=== PATIENT | female | born 1935 | race Caucasian/White ===

== ENCOUNTER 2016-09-08 14:53 | Inpatient (IN) | payer MEDICARE, OTHER ==
[~2016-09-08] VITALS: Ht 144.8 cm; Wt 76.5 kg
[2016-09-08] MEDS ORDERED: SOD CHLORIDE 0.9% 500 ML IV STA ×2 (15:41→16:30)
--- NOTE | 2016-09-08 15:46 | ERA ---
ER Documentation Chief Complaint Date/Time DATE: 09/08/16 TIME: 15:46 Chief Complaint HPI 81-year-old female with history of diabetes, hypertension, hyperlipidemia and arthritis presents the ED via rescue ambulance for evaluation of generalized weakness and hypotension. She has been having episodes of generalized weakness with low blood pressure over the last several weeks. She was in her usual state of health until this afternoon when she developed acute onset of generalized weakness. She checked her blood pressure and found it was low and 911 was activated. When paramedics arrived they found her pale and hypotensive with systolic blood pressure in the 80s. EKG revealed sinus rhythm without ischemic changes. An IV saline lock was established and after 250 cc of normal saline she improved and was transported to the ED. Complains of mild, generalized, gradual onset headache but no visual changes, focal weakness or numbness. Denies chest pain or palpitations. No abdominal pain, nausea, vomiting, diarrhea or constipation. Chronic pain and swelling of the lower extremities which are mildly worse recently. No URI symptoms or cough. No fevers or chills. ROS All systems reviewed and are negative except as per history of present illness. Medications Home Meds Reported Medications Baclofen* (Baclofen*) 10 Mg Tablet, 10 MG PO DAILY, TAB 09/08/16 Olmesartan Medoxomil (Benicar) 40 Mg Tablet, 12.5-40 MG PO DAILY, #30 TAB 09/08/16 Meclizine Hcl* (Meclizine Hcl*) 25 Mg Tablet, 25 MG PO DAILY Y for DIZZINESS, TAB 09/08/16 Metformin Hcl* (Metformin Hcl*) 500 Mg Tablet, 500 MG PO WITH BREAKFAST, #30 TAB 09/08/16 Allergies Allergies: Coded Allergies: aspirin (Verified Allergy, Unknown, 09/08/16) PMhx/Soc Reviewed in chart. As per HPI. Lives with family. History of Surgery: Yes Hx Neurological Disorder: Yes (Vertigo) Hx Respiratory Disorders: No Hx Cardiac Disorders: Yes (Hypertension) Hx Psychiatric Problems: Yes (Anxiety) Hx Miscellaneous Medical Probl: Yes (Diabetes mellitus type 2, hyperlipidemia) Hx Alcohol Use: No Hx Substance Use: No Hx Tobacco Use: No FmHx No stroke or cancer Physical Exam Vitals Vital Signs Date Time Temp Pulse Resp B/P Pulse Ox O2 Delivery O2 Flow Rate FiO2 09/08/16 17:54 55 15 102/56 100 Room Air 09/08/16 16:38 56 20 95/58 100 Room Air 09/08/16 16:13 98.6 50 18 97/48 99 Physical Exam Const: Alert, anxious, moderate distress. Head: Atraumatic Eyes: Normal Conjunctiva ENT: Normal External Ears, Nose and Mouth. Neck: Full range of motion. No JVD. Nontender. Resp: Clear to auscultation bilaterally Cardio: Bradycardic. Regular rate and rhythm, no murmurs Abd: Soft, non tender, non distended. Normal bowel sounds Skin: No petechiae or rashes Back: No midline or flank tenderness Ext: No cyanosis. 1-2+ lower extremity edema. Neur: Awake and alert. Cranial nerves II through XII are grossly intact. Motor and sensory equal bilaterally. No pronator drift. Psych: Normal Mood and Affect Result Diagram: 09/08/16 1535 09/08/16 1535 Results 24 hrs Laboratory Tests Test 09/08/16 15:30 09/08/16 15:35 09/08/16 18:47 09/08/16 18:50 Free Thyroxine 1.25ng/dl Free Triiodothyronine (T3) pg/mL 3.90pg/ml White Blood Count 7.210^3/ul Red Blood Count 3.5310^6/ul Hemoglobin 10.3g/dl Hematocrit 33.1% Mean Corpuscular Volume 93.8fl Mean Corpuscular Hemoglobin 29.2pg Mean Corpuscular Hemoglobin Concent 31.1g/dl Red Cell Distribution Width 15.9% Platelet Count 79671^3/UL Mean Platelet Volume 10.5fl Neutrophils % 54.4% Lymphocytes % 35.6% Monocytes % 7.1% Eosinophils % 1.1% Basophils % 0.6% Nucleated Red Blood Cells % 0.0/100WBC Neutrophils # 3.910^3/ul Lymphocytes # 2.610^3/ul Monocytes # 0.510^3/ul Eosinophils # 0.110^3/ul Basophils # 0.010^3/ul Nucleated Red Blood Cells # 0.010^3/ul Prothrombin Time 13.6Sec Prothrombin Time Ratio 1.1 INR International Normalized Ratio 1.04 Activated Partial Thromboplast Time 26.9Sec Sodium Level 140mmol/L Potassium Level 4.4mmol/L Chloride Level 110mmol/L Carbon Dioxide Level 22mmol/L Anion Gap 12 Blood Urea Nitrogen 35mg/dl Creatinine 1.53mg/dl Glucose Level 129mg/dl Calcium Level 9.5mg/dl Total Bilirubin 0.1mg/dl Direct Bilirubin 0.00mg/dl Indirect Bilirubin 0.1mg/dl Aspartate Amino Transf (AST/SGOT) 38IU/L Alanine Aminotransferase (ALT/SGPT) 39IU/L Alkaline Phosphatase 31IU/L Troponin I < 0.012ng/ml Total Protein 7.1g/dl Albumin 3.9g/dl Globulin 3.20g/dl Albumin/Globulin Ratio 1.21 Thyroid Stimulating Hormone (TSH) 0.147MIU/L Urine Color LT. YELLOW Urine Clarity CLEAR Urine pH 5.5 Urine Specific Hoagland 1.015 Urine Ketones NEGATIVE Urine Nitrite NEGATIVE Urine Bilirubin NEGATIVE Urine Urobilinogen 0.2 E.U./dL Urine Leukocyte Esterase NEGATIVE Urine Hemoglobin NEGATIVE Urine Glucose NEGATIVE% Urine Total Protein NEGATIVE Bedside Urine pH (LAB) 5.5 Bedside Urine Protein (LAB) Trace Bedside Urine Glucose (UA) Negative Bedside Urine Ketones (LAB) Negative Bedside Urine Blood Negative Bedside Urine Nitrite (LAB) Negative Bedside Urine Leukocyte Esterase (L Negative Current Medications Medications (Trade) Dose Ordered Sig/Lana Route PRN Reason Start Time Stop Time Status Last Admin Dose Admin Sodium Chloride 500 ml @ 500 mls/hr Q1H STAT IV 09/08/16 15:41 09/08/16 16:40 DC 09/08/16 15:46 Sodium Chloride (NS) 500 ml @ 500 mls/hr Q1H STAT IV 09/08/16 16:30 09/08/16 17:29 DC 09/08/16 16:40 Fentanyl 25 mcg 25 mcg ONCE ONCE IV 09/08/16 17:00 09/08/16 17:01 DC 09/08/16 16:55 Sodium Chloride (NS) 1,000 ml @ 100 mls/hr Q10H IV 09/08/16 19:30 09/08/16 22:06 DC Miscellaneous Information (* Miscellaneous Pharmacy Order) HYPOGLYCEMIA PROTOCOL w... ONCE ONCE XX 09/08/16 19:30 09/08/16 21:24 DC Miscellaneous Information (* Miscellaneous Pharmacy Order) Discontinue all previ... ONCE ONCE XX 09/08/16 19:30 09/08/16 21:24 DC RHYTHM STRIP INTERPRETATION: Time: 16: 39. Sinus bradycardia. Ventricular rate 52. No ectopy. Indication: Weakness and bradycardia. EKG: TIME: 15: 56. Sinus bradycardia. Ventricular rate 52. Normal SC QRS. No ectopy. T-wave inversion in lead V1 but no ST segment elevation or depression. EP Interpretation: Abnormal EKG. IMAGING: PROCEDURE: XR Chest. CLINICAL INDICATION: 81-year-old female with weakness. TECHNIQUE: Single frontal view of the chest was obtained. COMPARISON: No. FINDINGS: The soft tissues are normal. There are degenerative osteophytes in the thoracic spine. The heart has a transverse configuration due to a poor inspiration. The cardiomediastinal silhouette and hilar structures are normal. The pulmonary vasculature is normal. There is a left-sided aorta. There is a pleural-based density in the lower aspect of the right upper lobe. The costophrenic angles are normal. IMPRESSION: 1. There is a a pleural-based density in the lower periphery of the right upper lobe with additional infiltrates in the right upper lobe. The latter are most likely the result of a pneumonia. Follow-up imaging is required to ensure no pleural based mass is present. A CT scan of the chest can be considered for further evaluation if clinically indicated now to rule out a mass. 2. Spondylosis of the thoracic spine. RPTAT:AAJJ Physician Molly Date Time Electronically viewed and signed by Physician Molly on 09/08/2016 16:22 PROCEDURE: CT Chest without contrast. CLINICAL INDICATION: 81 year-old female with pleural-based density in the lower periphery of the right upper lobe representing a potential mass. TECHNIQUE: CT scan of the chest without contrast was performed on a multidetector high-resolution CT scanner. Coronal and sagittal reformatted images were obtained from the axial source images. The total exam CTDI equals 16 mGy and the total exam DLP equals 624 mGy-cm. One or more of the following dose reduction techniques were used: - Automated exposure control. - Adjustment of the mA and/or kV according to patient size. Use of iterative reconstruction technique. COMPARISON: Chest x-ray 09/08/2016. FINDINGS: The visible portions of the submandibular glands are normal. The vocal cords and trachea are unremarkable. The thyroid gland appears to be enlarged and has a lobulated contour. The thyroid gland contains several masses. There are eggshell type calcification are likely associated with a mass or masses in the inferior right lobe of the thyroid gland. Thyroid sonogram is recommended for evaluation. There are vascular calcifications in the aortic arch. The main pulmonary artery and pulmonary artery outflow tracts are normal. The heart is normal in size. No pericardial effusion is identified. There are vascular calcifications in the coronary arteries. There is a 9 mm lymph node ventral to the right mainstem bronchus. There are vascular calcifications in the descending thoracic aorta and abdominal aorta. There is a lobulated cavitary pleural-based mass in the lower periphery of the right upper lobe which could be the result of a pleural-based necrotic neoplasm or round pneumonia with cavitation. No additional pulmonary nodules are identified. There are a few peripheral ground-glass infiltrates in the lingula. There is some plate-like atelectasis in the lingula. No pleural effusion is noted. No enlarged axillary or supraclavicular lymph nodes are identified. The liver is enlarged measuring 17.6 cm AP. There is a area of increased attenuation in what appears to be the upper portion of the gallbladder which is only partially visualized on the CT scan. This could be the result of a partially visualized cholelith. There is a 2 mm nephrolith in the upper middle third of the left kidney. There is a 1.4 cm lesion in the dorsal upper third of the left kidney. A complex cyst or solid mass might present this fashion. An ultrasound or contrast enhanced CT scan could be considered for evaluation. The spleen is normal. The pancreas is normal. The stomach, small bowel loops and visible portions of the colon are unremarkable. There are degenerative changes in the thoracic and lumbar spine. IMPRESSION: 1. A thyroid sonogram is recommended to evaluate several thyroid nodules identified in the right and left lobes of the thyroid gland some which appear tab peripheral eggshell calcification. 2. Lobulated cavitary pleural-based mass in the lower periphery of the right upper lobe measuring up to 3.8 cm AP by 5.8 cm transverse by 5 cm in height. Inflammatory and neoplastic etiologies must be considered. TB, coccidiomycosis or a cavitary neoplasm such as lung cancer could present this fashion. 3. 9 mm lymph node ventral to the right mainstem bronchus. 4. Atherosclerotic vascular disease. 5. Hepatomegaly. Focal increased attenuation in what appears to be the upper portion of the gallbladder which may be the result of a cholelith. 6. 2 mm nephrolith upper middle third left kidney. 1.4 cm lesion dorsal upper third of the left kidney. Abdominal sonogram is recommended for characterization of the left renal mass. RPTAT:AAJJ Physician Molly Date Time Electronically viewed and signed by Physician Molly on 09/08/2016 18:17 Procedures/MDM DOCUMENTS REVIEWED: ED nurse, no prior records. History supplemented by discussion with the patient's PMD. MEDICAL DECISION MAKIN-year-old female with history of diabetes, hypertension, hyperlipidemia and arthritis presents the ED via rescue ambulance for evaluation of generalized weakness and hypotension. Patient with hypotension resolved with intravenous hydration but ongoing bradycardia possibly secondary to excessive beta-dalia use. No ischemic EKG changes, elevated troponin or other signs of acute coronary syndrome. No hypoglycemia. Markedly low TSH and further evaluation of thyroid function pending. Chest x- ray reveals a right-sided filtrate/mass which was further evaluated by a CAT scan as described above, revealed multiple thyroid nodules and pulmonary mass which will require further evaluation. Doubt pneumonia as is no fever or leukocytosis. Neoplastic process will need to be ruled out. Patient be admitted to telemetry for further evaluation and management. Counseled patient and family regarding diagnosis, diagnostic results and plan for admission. CALLS/CONSULTS: Time 16:00. PMD, Dr Fransico Silva. [phone] CALLS/CONSULTS: Time 18:13, Dr. Coyle, Recommends Telemetry admission. PATIENT CARE TRANSITIONED: Time: 18:13, Dr. Coyle. Critical Care Time: 35 minutes Treatments/Evaluations: Close monitoring and treatment of unstable vital signs, cardiorespiratory, and neurologic status, while maintaining tight balance of fluid, respiratory, and cardiac interventions. This time includes discussing the case with the patient and the patient's family. This time does not include all procedures stated elsewhere in this record. This time also includes reviewing old records, labs and radiological studies. This time includes examining and re-examining the patient. Additionally, this time also includes arranging care with admitting and consulting physicians. Departure Diagnosis: Primary Impression: Hypotension Qualified Code: I95.9 - Hypotension, unspecified hypotension type Additional Impressions: Bradycardia Pulmonary mass Multiple thyroid nodules Diabetes mellitus type 2 in obese Acute renal insufficiency Condition: Serious GABE NUGENT MD September 08, 2016 15:46
[2016-09-08 15:50] LABS: ADD SCAN DIFF NO
[2016-09-08 15:51] LABS: BASOPHILS % 0.6 % (0.0-2.0); EOSINOPHILS # 0.1 10^3/ul (0.0-0.5); EOSINOPHILS % 1.1 % (0.0-7.0); HEMATOCRIT 33.1 % (37.0-47.0); HEMOGLOBIN 10.3 g/dl (12.0-16.0); LYMPHOCYTES # 2.6 10^3/ul (0.8-2.9); LYMPHOCYTES % 35.6 % (15.0-51.0); MEAN CORPUSCULAR HEMOGLOBIN 29.2 pg (29.0-33.0); MEAN CORPUSCULAR HGB CONC 31.1 g/dl (32.0-37.0); MEAN CORPUSCULAR VOLUME 93.8 fl (82.0-101.0); MEAN PLATELET VOLUME 10.5 fl (7.4-10.4); MONOCYTE # 0.5 10^3/ul (0.3-0.9); MONOCYTES % 7.1 % (0.0-11.0); NEUTROPHIL # 3.9 10^3/ul (1.6-7.5); NEUTROPHILS % 54.4 % (39.0-77.0); PLATELET COUNT 202 10^3/UL (140-415); RED BLOOD COUNT 3.53 10^6/ul (4.20-5.40); RED CELL DISTRIBUTION WIDTH 15.9 % (11.5-14.5); WHITE BLOOD COUNT 7.2 10^3/ul (4.8-10.8)
[2016-09-08 15:55] LABS: INR 1.04; PARTIAL THROMBOPLASTIN TIME 26.9 Sec (25.0-35.0); PROTIME 13.6 Sec (12.2-14.2); PT RATIO 1.1
[2016-09-08 16:07] LABS: ALANINE AMINOTRANSFERASE 39 IU/L (13-69); ALBUMIN 3.9 g/dl (3.3-4.9); ALBUMIN/GLOBULIN RATIO 1.21; ALKALINE PHOSPHATASE 31 IU/L (42-121); ANION GAP 12 (8-16); ASPARTATE AMINO TRANSFERASE 38 IU/L (15-46); BILIRUBIN,INDIRECT 0.1 mg/dl (0-1.1); BILIRUBIN,TOTAL 0.1 mg/dl (0.2-1.3); BLOOD UREA NITROGEN 35 mg/dl (7-20); CALCIUM 9.5 mg/dl (8.4-10.2); CARBON DIOXIDE 22 mmol/L (21-31); CHLORIDE 110 mmol/L (97-110); CREATININE 1.53 mg/dl (0.44-1.00); GLUCOSE 129 mg/dl (70-220); POTASSIUM 4.4 mmol/L (3.5-5.1); SODIUM 140 mmol/L (135-144); TOTAL PROTEIN 7.1 g/dl (6.1-8.1)
[2016-09-08 16:21] LABS: TROPONIN-I < 0.012 ng/ml (0.00-0.12)
--- NOTE | 2016-09-08 16:23 | RADRPT ---
PROCEDURE: XR Chest. CLINICAL INDICATION: 81-year-old female with weakness. TECHNIQUE: Single frontal view of the chest was obtained. COMPARISON: No. FINDINGS: The soft tissues are normal. There are degenerative osteophytes in the thoracic spine. The heart h as a transverse configuration due to a poor inspiration. The cardiomediastinal silhouette and hilar structures are normal. The pulmonary vasculature is normal. There is a left-sided aorta. There is a pleural-based density in the lower aspect of the right upper lobe. The costophrenic angles are no rmal. IMPRESSION: 1. There is a a pleural-based density in the lower periphery of the right upper lobe with additional infiltrates in the right upper lobe. The latter are most likely the result of a pneumonia. Follow -up imaging is required to ensure no pleural based mass is present. A CT scan of the chest can be c onsidered for further evaluation if clinically indicated now to rule out a mass. 2. Spondylosis of the thoracic spine. RPTAT:AAJJ Physician Molly Date Time Electronically viewed and signed by Physician Molly on 09/08/2016 16:22 RODOLFO/
[2016-09-08 16:38] LABS: THYROID STIMULATING HORMONE 0.147 MIU/L (0.465-4.680)
[2016-09-08] MEDS ORDERED: FENTAnyl 50 MCG/ML VIAL IV ONE (17:00)
--- NOTE | 2016-09-08 17:03 | RADRPT ---
PROCEDURE: US DVT. CLINICAL INDICATION: Bilateral lower extremity swelling.. TECHNIQUE: Multiple longitudinal and transverse images of the bilateral lower extremity veins were obtained with chance scale and color Doppler imaging. 2D grayscale measurements with compression, co vianca Doppler flow, and augmentation was performed. The calf veins were interrogated as well. COMPARISON: No prior studies are available for comparison. FINDINGS: The bilateral common femoral, superficial femoral and popliteal veins are normally compressible thro ughout. Color flow demonstrates normal filling of the vessel. Normal waveforms are visualized and there is normal response to augmentation. IMPRESSION: 1. No evidence of a deep vein thrombosis involving either lower extremity. RPTAT: AACC Physician Keegan Date Time Electronically viewed and signed by Physician Keegan on 09/08/2016 17:03 /
--- NOTE | 2016-09-08 18:18 | RADRPT ---
PROCEDURE: CT Chest without contrast. CLINICAL INDICATION: 81 year-old female with pleural-based density in the lower periphery of the rig ht upper lobe representing a potential mass. TECHNIQUE: CT scan of the chest without contrast was performed on a multidetector high-resolution CT scanner. Coronal and sagittal reformatted images were obtained from the axial source images. The total exam CTDI equals 16 mGy and the total exam DLP equals 624 mGy-cm. One or more of the following dose reduction techniques were used: - Automated exposure control. - Adjustment of the mA and/or kV according to patient size. Use of iterative reconstruction technique. COMPARISON: Chest x-ray 09/08/2016. FINDINGS: The visible portions of the submandibular glands are normal. The vocal cords and trachea are unrema rkable. The thyroid gland appears to be enlarged and has a lobulated contour. The thyroid gland con tains several masses. There are eggshell type calcification are likely associated with a mass or ma sses in the inferior right lobe of the thyroid gland. Thyroid sonogram is recommended for evaluatio n. There are vascular calcifications in the aortic arch. The main pulmonary artery and pulmonary arter y outflow tracts are normal. The heart is normal in size. No pericardial effusion is identified. There are vascular calcifications in the coronary arteries. There is a 9 mm lymph node ventral to the right mainstem bronchus. There are vascular calcifications in the descending thoracic aorta and abdominal aorta. There is a lobulated cavitary pleural-based mass in the lower periphery of the right upper lobe whic h could be the result of a pleural-based necrotic neoplasm or round pneumonia with cavitation. No additional pulmonary nodules are identified. There are a few peripheral ground-glass infiltrates in the lingula. There is some plate-like atelec tasis in the lingula. No pleural effusion is noted. No enlarged axillary or supraclavicular lymph nodes are identified. The liver is enlarged measuring 17.6 cm AP. There is a area of increased attenuation in what appear s to be the upper portion of the gallbladder which is only partially visualized on the CT scan. Thi s could be the result of a partially visualized cholelith. There is a 2 mm nephrolith in the upper m iddle third of the left kidney. There is a 1.4 cm lesion in the dorsal upper third of the left kidn ey. A complex cyst or solid mass might present this fashion. An ultrasound or contrast enhanced CT scan could be considered for evaluation. The spleen is normal. The pancreas is normal. The stomach, small bowel loops and visible portions of the colon are unremarkable. There are degenerative changes in the thoracic and lumbar spine. IMPRESSION: 1. A thyroid sonogram is recommended to evaluate several thyroid nodules identified in the right an d left lobes of the thyroid gland some which appear tab peripheral eggshell calcification. 2. Lobulated cavitary pleural-based mass in the lower periphery of the right upper lobe measuring u p to 3.8 cm AP by 5.8 cm transverse by 5 cm in height. Inflammatory and neoplastic etiologies must be considered. TB, coccidiomycosis or a cavitary neoplasm such as lung cancer could present this fa shion. 3. 9 mm lymph node ventral to the right mainstem bronchus. 4. Atherosclerotic vascular disease. 5. Hepatomegaly. Focal increased attenuation in what appears to be the upper portion of the gallbla dder which may be the result of a cholelith. 6. 2 mm nephrolith upper middle third left kidney. 1.4 cm lesion dorsal upper third of the left ki dney. Abdominal sonogram is recommended for characterization of the left renal mass. RPTAT:AAJJ Physician Molly Date Time Electronically viewed and signed by Physician Molly on 09/08/2016 18:17 RODOLFO/
[2016-09-08 18:49] LABS: URINE BLOOD (Dip) POC Negative (NEGATIVE)
[2016-09-08 18:55] LABS: ADD UMIC NO; URINE BILIRUBIN (Dip) NEGATIVE (NEGATIVE); URINE BLOOD (Dip) NEGATIVE (NEGATIVE); URINE COLOR LT. YELLOW (YELLOW); URINE GLUCOSE (Dip) NEGATIVE (NEGATIVE); URINE KETONES (Dip) NEGATIVE (NEGATIVE); URINE LEUKOCYTE ESTERASE (Dip) NEGATIVE (NEGATIVE); URINE NITRITE (Dip) NEGATIVE (NEGATIVE); URINE TOTAL PROTEIN (Dip) NEGATIVE (NEGATIVE); URINE UROBILINOGEN (Dip) 0.2 E.U./dL (0.1-1.0)
[2016-09-08] MEDS ORDERED: SOD CHLORIDE 0.9% 1,000 ML IV SCH (19:30)
--- NOTE | 2016-09-08 20:04 | RADRPT ---
PROCEDURE: CT Brain without contrast. CLINICAL INDICATION: Possible malignancy. TECHNIQUE: A CT of the brain was performed utilizing axial sections from the skull base through th e vertex without contrast. Multiplanar re-formations were generated. Images were reviewed on a high- resolution PACS workstation. CTDIvol: 43.27 mGy. DLP: 720.23 mGy-cm. One or more of the following dose reduction techniques were used: - Automated exposure control. - Adjustment of the mA and/or kV according to patient size. - Use of iterative reconstruction technique. COMPARISON: None available FINDINGS: There is moderate to severe generalized volume loss. No hydrocephalus is seen. There is no mass eff ect. No acute intracranial hemorrhage is identified. There is no extra-axial collection. No CT evid ence of acute infarction is identified. There is patchy low attenuation in the supratentorial white matter, a nonspecific finding which most likely represents the sequela of mild chronic microvascula r ischemic disease. There are minimal atherosclerotic arterial calcifications. There is no significant mucosal disease in the paranasal sinuses. The visualized mastoid air cells a re clear. The ossesous structures are unremarkable. The extracranial soft tissues are unremarkable. IMPRESSION: 1. No acute intracranial pathology. 2. Moderate to severe generalized volume loss. 3. Mild chronic microvascular ischemic changes. 4. Atherosclerotic arterial calcifications. RPTAT: HTAR .Alcides Boone MD, Date Time Electronically viewed and signed by .Alcides Boone MD, MD on 09/08/2016 20:04 .R/
--- NOTE | 2016-09-08 20:25 | RADRPT ---
PROCEDURE: CT Abdomen and Pelvis without contrast. CLINICAL INDICATION: Renal mass. TECHNIQUE: Multiple contiguous axial CT images of the abdomen and pelvis were obtained without the administration of intravenous contrast. Coronal and sagittal reconstructions were also performed. CTDIvol (mGy): 18.75; Total Exam DLP (mGy-cm): 1080.23. One or more of the following dose reduction techniques were utilized: - Automated exposure control. - Adjustment of the mA and/or kV according to patient size. - Use of iterative reconstruction technique. COMPARISON: CT chest 09/08/2016. FINDINGS: Limited imaging of the lower thorax is unremarkable. The liver and spleen are homogeneous in density. The liver measures approximately 22.0 cm in a cran iocaudal dimension. Cholelithiasis is present. The pancreas and adrenal glands are unremarkable. The kidneys are symmetric in size. There is a faint punctate density within the interpolar region of the left kidney which may reflect a tiny nonobstructing stone. There is suggestion of a small low density structure of the posterior aspect of the upper pole of the left kidney which has favorable f or a small cyst. The presence of a solid renal mass cannot be ruled out given there is no intraveno us contrast. There is no hydronephrosis or abnormal perinephric inflammation. There are no uretera l stones. Bilateral symmetric perinephric fat stranding is observed. The abdominal aorta is normal in caliber. Atherosclerotic calcification is present. There is no per iaortic / retroperitoneal lymphadenopathy. The stomach and small and large intestines are unremarkable. The appendix is not visualized. There are no focal inflammatory changes of the mesentery. There is no mesenteric lymphadenopathy. There is no ascites. The bladder, uterus and adnexa are unremarkable. There is no free pelvic fluid. There is no pelvic sidewall or inguinal lymphadenopathy. There is a tiny fat containing left inguinal hernia. Degenerative changes of the spine are present. Body wall soft tissues are unremarkable. IMPRESSION: No evidence of abdominopelvic mass, lymphadenopathy or acute inflammatory pathology. There is a sma ll low density structure within the posterior aspect of the upper pole of the left kidney which may reflect a small cyst. Confirmation can be obtained with dedicated renal ultrasound. If there is con cern for a solid renal mass, follow-up cross-sectional imaging with and without intravenous contrast would be required. Hepatomegaly. Cholelithiasis. RPTAT: HLST .Jesi Esquivel MD, MD Date Time Electronically viewed and signed by .Jesi Esquievl MD, MD on 09/08/2016 20:25 .T/
[2016-09-08 20:30] VITALS: Ht 144.8 cm; Wt 76.5 kg
[2016-09-08 20:44] VITALS: BP 136/65; RESP 18
--- NOTE | 2016-09-08 20:48 | HP ---
DATE OF ADMISSION: 09/08/2016 PRESENTING COMPLAINT: Lethargy as well as low blood pressure. HISTORY OF PRESENTING COMPLAINT: This is a pleasant 81-year-old female with a past medical history of high blood pressure, diabetes, dyslipidemia amongst other problems who was brought in today by he r family because of an episode of feeling weak and low blood pressure. The family reports that over the last 3 to 4 days, the patient has just had episodes where she just does not feel well. She rep orts feeling weak all over, somewhat like near syncopal episode, and every time they check her blood pressure during these episodes, it is always found to be quite low. Today, she was also noted to tamie kirk bradycardic as well. The patient is on a beta dalia but has been taking this medication for man y years. The only new medication she was started on was Januvia for her diabetes, prior to which lindsey kirk was on metformin for many years as well. She just started taking the Januvia 2 days ago. However , on this last episode, when they checked her blood sugar, it was 151, which was not low for her. O ther than that, there has been no fever. She has had episodes of fatigue, but these were not consis tent. There is no loss of appetite, no visual changes. There has been no chest pain, shortness of breath, coughing or sputum. There have been no palpitations. There has been no nausea, vomiting, d iarrhea, blood in her stool. She does have episodes of constipation. There has been no dysuria or hematuria, no flank pain. She has chronic bilateral lower extremity edema, but this is not new. Lindsey kirk also has chronic bone and joint pains intermittently. This has not changed. She has denied dizzi ness. They have not noticed any seizing. These episodes are not associated with loss of bowel or b ladder control. They haven't noted any polydipsia or polyuria. There has been no new skin rash. REVIEW OF SYSTEMS: A 12-point review of systems was done, and pertinent findings are noted in HPI. PAST MEDICAL HISTORY: Positive for the followin. High blood pressure. 2. Diabetes. 3. Dyslipidemia. 4. Gout. SURGICAL HISTORY: Positive for: 1. Appendectomy. 2. Tonsillectomy. 3. Skin cancer, status post removal and a short course of radiation therapy, after which she has be en cancer free. ALLERGIES: THE PATIENT HAS NO DRUG ALLERGIES, BUT SHE SAYS SHE DOES BREAK OUT SOMETIMES WITH ASPIRI N THERAPY. FAMILY HISTORY: Noncontributory. SOCIAL HISTORY: The patient has never smoked. Denies alcohol or illicit drug use. PHYSICAL EXAMINATION: VITAL SIGNS: Temperature 98.6, pulse rate has ranged between 50 and 56, respirations 15, blood pres sure 102/56. When the patient first came in, blood pressure was 97/48. Saturations 100% on room ai r. GENERAL: Obese female, quite lethargic, who is alert, oriented x3, able to answer questions but did look ill. HEENT: Head was normocephalic without evidence of trauma. Pupils equal and reactive. No scleral j aundice. No conjunctival pallor. Mucous membranes are slightly dry. Posterior pharynx is clear of erythema and exudate. NECK: Supple without lymphadenopathy, but she did have some ____ on the base of the neck on the rig ht. She might have some thyromegaly; it was difficult to assess. CHEST: Clear to auscultation with good air entry on both sides. CARDIOVASCULAR: S1 and S2 ____ sounds or murmurs. Mild bradycardia. ABDOMEN: Obese, soft, nontender, nondistended with normoactive bowel sounds. No surgical scars. LOWER EXTREMITIES: The patient has nonpitting bilateral edema about 2+. The patient is edematous a ll the way from her feet to just below her knees. Again, per family, this is chronic. NEUROLOGIC: She had no focal deficits other than just lethargy. SKIN: Devoid of rash or jaundice. PSYCHIATRIC: She was anxious. LABORATORY VALUES: WBC count was normal, but hemoglobin was low at 10.3, and her MCHC was also low, consistent with hypochromia. Platelets were normal. On chemistry, her TSH was quite low at 0.147, but her free T3 was normal. Also her BUN was 35, and creatinine was elevated at 1.5. The rest of her LFTs and BMP were normal. Her urinalysis was negative for UTI. She did have trace proteinuria. Coagulation profile was unremarkable. IMAGING: She had following imaging studies: 1. A chest x-ray showed a pleural-based density in the lower periphery of the right upper lobe with additional infiltrates in the right upper lobe. This is thought to be secondary to a pneumonia, bu t they recommended CT of the chest to rule out a mass. 2. She underwent a CT of the chest without IV contrast, and this showed the following: A lobulated cavitary pleural-based mass in the lower periphery of the right upper lobe measuring up to 3.8 x 5. 8 for which inflammatory and neoplastic etiologies must considered. TB, coccidioidomycosis or a cav itary neoplasm such as lung cancer could present in this fashion. There is also a 9 mm lymph node i n the right mainstem bronchus. Hepatomegaly and possible gallbladder stones as well as a 2 mm kidne y stone and a probable left renal mass in the dorsal upper third of the left kidney. The patient wa s also found to have several thyroid nodules for which they recommended thyroid ultrasound to kathya doll. 3. Bilateral extremity Dopplers do not show any DVT in any extremities. EKG was reviewed by myself and is normal sinus rhythm without evidence of ST elevations or depressio ns with a rate of 52 consistent with sinus bradycardia. ASSESSMENT: An 81-year-old ____ female who presents today with lethargy and a near-syncopal episode , admitted and managed for the followin. Near syncope with associated hypotension and bradycardia. 2. Rule out acute coronary syndrome. 3. Right-sided pleural-based lung mass, multiple thyroid masses, possible renal mass in the setting of a history of skin cancer in the past, status post radiation, concerning for metastatic disease v ersus infection with incidental findings. 4. High blood pressure, good control. 5. Dyslipidemia, stable. 6. Diabetes type 2 with fairly good control. 7. Acute renal failure, rule out chronic kidney disease. 8. ASPIRIN ALLERGY. 9. Low TSH, rule out hyperthyroidism. PLAN: This patient is going to require an extensive workup, and she is being admitted for that. Sh e is going to be admitted to telemetry floor. One of the first things we'll do is rule out an acute coronary syndrome and obtain a CAT scan of her brain as well as her abdomen and pelvis to further e valuate findings noted on CT of the chest. She also is going to require a renal ultrasound as well as a thyroid ultrasound. She will need a full thyroid profile, and she will probably benefit from b oth pulmonary as well as hematology/oncology consultations. She is likely going to need a biopsy fo r her lung mass if Hematology feels that way, and further interventions will depend on the consultan ts' recommendations and their clinical findings. She will benefit from a 2D echocardiogram as well and will get orthostatic vital signs to evaluate her for orthostasis. We will conclusively rule out infection by sending cultures as well and will place her on a carb-controlled diet with sliding sca le insulin while she is in-house. Will continue the rest of her home medications, avoid any AV reji l-blocking agents for now in view of her symptomatic bradycardia. Also, the patient is ALLERGIC TO ASPIRIN so will hold off on that as well. Again, as mentioned earlier, further interventions will d epend on clinical course. I have discussed this plan of care with the patient and her family. I berry ve answered questions. For prophylaxis, she will be on Protonix as well as Lovenox. Dictated By: NILDA SHINE MD, BA/NTS Conf#: [id number] DID#: [id number]
[2016-09-08] MEDS: INSULIN ASPART [NOVOLOG] 3 ML PEN SC SCH (21:00)
[2016-09-08] MEDS ORDERED: ACETAMINOPHEN 325 MG TAB PO PRN (21:00)
[2016-09-08] MEDS: morphine 2 MG INJ IV PRN (21:21)
[2016-09-08] MEDS ORDERED: GLUCOSE GEL 15 GRAM TUBE PO PRN ×2 (21:30)
[2016-09-08] MEDS ORDERED: GLUCAGON 1 MG INJ IM PRN (21:30)
[2016-09-08] MEDS ORDERED: DEXTROSE 50% 50 ML SYRINGE IV PRN ×2 (21:30)
[2016-09-08] MEDS ORDERED: GLUCOSE GEL 15 GRAM TUBE BUCCAL PRN (21:30)
[2016-09-08] MEDS: DOCUSATE SODIUM 100 MG CAP PO SCH (21:53)
--- NOTE | 2016-09-08 22:19 | RADRPT ---
PROCEDURE: US Carotids. CLINICAL INDICATION: Near syncope. TECHNIQUE: Multiple sonographic of the carotid arteries were obtained utilizing chance scale imaging . Color and Doppler imaging was performed. The images were reviewed on a PACS workstation. COMPARISON: No prior studies are available for comparison. FINDINGS: Location:RightLeft CCA48.9 cm/sec52.3 cm/sec Prox ICA50.2 cm/sec66.1 cm/sec Mid ICA50.4 cm/sec48.7 cm/sec Dist ICA36.3 cm/sec46.0 cm/sec ECA50.9 cm/sec50.9 cm/sec ICA/CCA:1.0 1.3 Antegrade flow is seen within the vertebral arteries bilaterally. No significant plaque is seen with in the carotid system bilaterally. IMPRESSION: 1. No hemodynamically significant stenosis in the cervical carotid arteries. 2. Antegrade flow in both vertebral arteries. Note: Ultrasound velocity criteria are extrapolated from diameter data as defined by the Society of Radiologists in Ultrasound Consensus Conference Radiology 2003; 229;340-346. This study indirectly r eferences the measurement of the distal ICA diameter as the denominator for stenosis measurement. RPTAT: HTAR .Alcides Boone MD, Date Time Electronically viewed and signed by .Alcides Boone MD, on 09/08/2016 22:19 .R/
[2016-09-08] MEDS ORDERED: METF500T4 PO (22:20)
[2016-09-08] MEDS ORDERED: MECL-77 PO (22:24)
[2016-09-08] MEDS ORDERED: OLME40TA14 PO (22:25)
--- NOTE | 2016-09-08 22:25 | CONS ---
Date/Time of Note Date/Time of Note DATE: 09/08/16 TIME: 22:25 Assessment/Plan Assessment/Plan Chief Complaint/Hosp Course ASSESSMENT: An 81-year-old female who presents today with lethargy and a near- syncopal episode Right-sided pleural-based lung mass, multiple thyroid masses, possible renal mass in the setting of a history of skin cancer in the past, status post radiation, concerning for metastatic disease versus infection with incidental findings. SEVERE WT LOSS WITH DECREASED APPETITE R/O UNDERLYING NEOPLASIA CT-QUIDED BX LUNG MASS ANEMIA PROCEED WITH W-UP Near syncope with associated hypotension and bradycardia. Rule out acute coronary syndrome. High blood pressure, good control. Dyslipidemia, stable. Diabetes type 2 with fairly good control. Acute renal failure, rule out chronic kidney disease. ASPIRIN ALLERGY. Low TSH, rule out hypothyroidism. Problems: Consultation Date/Type/Reason Admit Date/Time September 08, 2016 at 19:35 Date of Consultation: September 08, 2016 Type of Consultation: hemeonc Reason for Consultation lung mass Referring Provider: NILDA SHINE Hx of Present Illness This is a pleasant 81-year-old female with a past medical history of high blood pressure, diabetes, dyslipidemia amongst other problems who was brought in today by her family because of an episode of feeling weak and low blood pressure. The family reports that over the last 3 to 4 days, the patient has just had episodes where she just does not feel well. She reports feeling weak all over, somewhat like near syncopal episode, and every time they check her blood pressure during these episodes, it is always found to be quite low. Today , she was also noted to be bradycardic as well. The patient is on a beta dalia but has been taking this medication for many years. The only new medication she was started on was Januvia for her diabetes, prior to which she was on metformin for many years as well. She just started taking the Januvia 2 days ago. However, on this last episode, when they checked her blood sugar, it was 151, which was not low for her. Other than that, there has been no fever. She has had episodes of fatigue, but these were not consistent. There is no loss of appetite, no visual changes. There has been no chest pain, shortness of breath, coughing or sputum. There have been no palpitations. There has been no nausea, vomiting, diarrhea, blood in her stool. She does have episodes of constipation. There has been no dysuria or hematuria, no flank pain. She has chronic bilateral lower extremity edema, but this is not new. She also has chronic bone and joint pains intermittently. This has not changed. She has denied dizziness. They have not noticed any seizing. These episodes are not associated with loss of bowel or bladder control. They haven't noted any polydipsia or polyuria. There has been no new skin rash. REVIEW OF SYSTEMS: A 12-point review of systems was done, and pertinent findings are noted in HPI. PAST MEDICAL HISTORY: Positive for the followin. High blood pressure. 2. Diabetes. 3. Dyslipidemia. 4. Gout. SURGICAL HISTORY: Positive for: 1. Appendectomy. 2. Tonsillectomy. 3. Skin cancer, status post removal and a short course of radiation therapy, after which she has been cancer free. ALLERGIES: THE PATIENT HAS NO DRUG ALLERGIES, BUT SHE SAYS SHE DOES BREAK OUT SOMETIMES WITH ASPIRIN THERAPY. FAMILY HISTORY: Noncontributory. SOCIAL HISTORY: The patient has never smoked. Denies alcohol or illicit drug use. Social History Smoking Status: Never smoker Exam/Review of Systems Vital Signs Vitals Vital Signs Date Time Temp Pulse Resp B/P Pulse Ox O2 Delivery O2 Flow Rate FiO2 09/08/16 20:44 97.4 65 18 136/65 95 09/08/16 17:54 Room Air Exam PHYSICAL EXAMINATION: GENERAL: Obese female, quite lethargic, who is alert, oriented x3, able to answer questions but did look ill. HEENT: Head was normocephalic without evidence of trauma. Pupils equal and reactive. No scleral jaundice. No conjunctival pallor. Mucous membranes are slightly dry. Posterior pharynx is clear of erythema and exudate. NECK: Supple without lymphadenopathy, but she did have some ____ on the base of the neck on the right. She might have some thyromegaly; it was difficult to assess. CHEST: Clear to auscultation with good air entry on both sides. CARDIOVASCULAR: S1 and S2 ____ sounds or murmurs. Mild bradycardia. ABDOMEN: Obese, soft, nontender, nondistended with normoactive bowel sounds. No surgical scars. LOWER EXTREMITIES: The patient has nonpitting bilateral edema about 2+. The patient is edematous all the way from her feet to just below her knees. Again, per family, this is chronic. NEUROLOGIC: She had no focal deficits other than just lethargy. SKIN: Devoid of rash or jaundice. PSYCHIATRIC: She was anxious. no path ln-pari Results Result Diagram: 09/08/16 1535 09/08/16 1535 Results 24 hrs Laboratory Tests Test 09/08/16 15:30 09/08/16 15:35 09/08/16 18:47 09/08/16 18:50 Free Thyroxine 1.25 Free Triiodothyronine (T3) pg/mL 3.90 White Blood Count 7.2 Red Blood Count 3.53 L Hemoglobin 10.3 L Hematocrit 33.1 L Mean Corpuscular Volume 93.8 Mean Corpuscular Hemoglobin 29.2 Mean Corpuscular Hemoglobin Concent 31.1 L Red Cell Distribution Width 15.9 H Platelet Count 202 Mean Platelet Volume 10.5 H Neutrophils % 54.4 Lymphocytes % 35.6 Monocytes % 7.1 Eosinophils % 1.1 Basophils % 0.6 Nucleated Red Blood Cells % 0.0 Neutrophils # 3.9 Lymphocytes # 2.6 Monocytes # 0.5 Eosinophils # 0.1 Basophils # 0.0 Nucleated Red Blood Cells # 0.0 Prothrombin Time 13.6 Prothrombin Time Ratio 1.1 INR International Normalized Ratio 1.04 Activated Partial Thromboplast Time 26.9 Sodium Level 140 Potassium Level 4.4 Chloride Level 110 Carbon Dioxide Level 22 Anion Gap 12 Blood Urea Nitrogen 35 H Creatinine 1.53 H Glucose Level 129 Calcium Level 9.5 Total Bilirubin 0.1 L Direct Bilirubin 0.00 Indirect Bilirubin 0.1 Aspartate Amino Transf (AST/SGOT) 38 Alanine Aminotransferase (ALT/SGPT) 39 Alkaline Phosphatase 31 L Troponin I < 0.012 Total Protein 7.1 Albumin 3.9 Globulin 3.20 Albumin/Globulin Ratio 1.21 Thyroid Stimulating Hormone (TSH) 0.147 L Urine Color LT. YELLOW Urine Clarity CLEAR Urine pH 5.5 Urine Specific Jackson 1.015 Urine Ketones NEGATIVE Urine Nitrite NEGATIVE Urine Bilirubin NEGATIVE Urine Urobilinogen 0.2 E.U./dL Urine Leukocyte Esterase NEGATIVE Urine Hemoglobin NEGATIVE Urine Glucose NEGATIVE Urine Total Protein NEGATIVE Bedside Urine pH (LAB) 5.5 Bedside Urine Protein (LAB) Trace H Bedside Urine Glucose (UA) Negative Bedside Urine Ketones (LAB) Negative Bedside Urine Blood Negative Bedside Urine Nitrite (LAB) Negative Bedside Urine Leukocyte Esterase (L Negative Test 09/08/16 21:52 Bedside Glucose 121 Medications Medications Current Medications Enoxaparin Sodium (Lovenox) 30 mg DAILY SC ; Start 09/09/16 at 09:00 Pantoprazole (Protonix Iv) 40 mg DAILY@06 IV ; Start 09/09/16 at 06:00 Docusate Sodium (Colace) 100 mg BID PO Last administered on 09/08/16 21:53; Admin Dose 100 MG; Start 09/08/16 at 21:00 Acetaminophen (Tylenol Tab) 650 mg Q4H PRN PO PAIN AND OR ELEVATED TEMP; Start 09/08/16 at 21:00 Morphine Sulfate (morphine) 1 mg Q4H PRN IV pain Last administered on 21:21; Admin Dose 1 MG; Start 09/08/16 at 21:00 Miscellaneous Information 1 ea NOTE XX ; Start 09/08/16 at 21:30 Glucose (Glutose) 15 gm Q15M PRN PO DECREASED GLUCOSE; Start 09/08/16 at 21:30 Glucose (Glutose) 22.5 gm Q15M PRN PO DECREASED GLUCOSE; Start 09/08/16 at 21: 30 Dextrose (D50w Syringe) 25 ml Q15M PRN IV DECREASED GLUCOSE; Start 09/08/16 at 21:30 Dextrose (D50w Syringe) 50 ml Q15M PRN IV DECREASED GLUCOSE; Start 09/08/16 at 21:30 Glucagon (Glucagen) 1 mg Q15M PRN IM DECREASED GLUCOSE; Start 09/08/16 at 21:30 Glucose (Glutose) 15 gm Q15M PRN BUCCAL DECREASED GLUCOSE; Start 09/08/16 at 21 :30 Hydralazine HCl (Apresoline) 10 mg Q6H PRN IV ELEVATED BLOOD PRESSURE; Start at 22:30 Procedures Procedures IMAGING: She had following imaging studies: 1. A chest x-ray showed a pleural-based density in the lower periphery of the right upper lobe with additional infiltrates in the right upper lobe. This is thought to be secondary to a pneumonia, but they recommended CT of the chest to rule out a mass. 2. She underwent a CT of the chest without IV contrast, and this showed the following: A lobulated cavitary pleural-based mass in the lower periphery of the right upper lobe measuring up to 3.8 x 5.8 for which inflammatory and neoplastic etiologies must considered. TB, coccidioidomycosis or a cavitary neoplasm such as lung cancer could present in this fashion. There is also a 9 mm lymph node in the right mainstem bronchus. Hepatomegaly and possible gallbladder stones as well as a 2 mm kidney stone and a probable left renal mass in the dorsal upper third of the left kidney. The patient was also found to have several thyroid nodules for which they recommended thyroid ultrasound to evaluate. 3. Bilateral extremity Dopplers do not show any DVT in any extremities. EKG - normal sinus rhythm without evidence of ST elevations or depressions with a rate of 52 consistent with sinus bradycardia. HEIDY ORTIZ MD September 08, 2016 22:25
[2016-09-08] MEDS ORDERED: BACL10TA PO (22:26)
[2016-09-08] MEDS ORDERED: FEBU80TA PO (22:34)
[2016-09-08] MEDS ORDERED: FURO20TA3 PO (22:34)
[2016-09-08] MEDS ORDERED: POTA10TA97 PO (22:34)
[2016-09-08] MEDS ORDERED: ATEN50TA PO (22:34)
[2016-09-08] MEDS ORDERED: FENO134C PO (22:34)
[2016-09-08] MEDS ORDERED: TRIA0.1212 PO (22:34)
[2016-09-08] MEDS ORDERED: HYDR10SY13 PO (22:34)
[2016-09-08] MEDS ORDERED: SIMV20TA2 PO (22:34)
[2016-09-08] MEDS: hydrALAzine 20 MG INJ IV PRN (22:39)
[2016-09-08 23:23] VITALS: PULSE 60
[2016-09-08] MEDS ORDERED: LORAZEPAM 2 MG INJ IV ONE (23:30)
[2016-09-08 23:47] LABS: CREATINE KINASE 287 IU/L (23-200)
[2016-09-08 23:59] LABS: TROPONIN-I < 0.012 ng/ml (0.00-0.12)
[2016-09-09] VITALS (13 sets, daily range): BP systolic 111–152; BP diastolic 57–80; PULSE 78–100; RESP 18–20
[2016-09-09] MEDS ORDERED: MECLIZINE 25 MG TAB PO PRN
[2016-09-09] MEDS ORDERED: ZOLPIDEM 5 MG TAB PO PRN (00:15)
[2016-09-09] MEDS: hydrOXYzine HCL 10 MG TAB PO SCH ×2 (00:30→20:51)
[2016-09-09] MEDS: HYDROCODONE/APAP (5/325) TAB PO PRN ×2 (03:44→18:31)
[2016-09-09] MEDS: PANTOPRAZOLE 40 MG INJ IV SCH (05:15)
[2016-09-09 07:31] LABS: ADD SCAN DIFF NO
[2016-09-09 07:45] LABS: BASOPHILS % 0.7 % (0.0-2.0); EOSINOPHILS # 0.1 10^3/ul (0.0-0.5); HEMATOCRIT 32.3 % (37.0-47.0); HEMOGLOBIN 10.1 g/dl (12.0-16.0); LYMPHOCYTES # 1.8 10^3/ul (0.8-2.9); LYMPHOCYTES % 29.6 % (15.0-51.0); MEAN CORPUSCULAR HEMOGLOBIN 28.9 pg (29.0-33.0); MEAN CORPUSCULAR HGB CONC 31.3 g/dl (32.0-37.0); MEAN CORPUSCULAR VOLUME 92.3 fl (82.0-101.0); MEAN PLATELET VOLUME 10.4 fl (7.4-10.4); MONOCYTE # 0.4 10^3/ul (0.3-0.9); NEUTROPHIL # 3.7 10^3/ul (1.6-7.5); NEUTROPHILS % 61.5 % (39.0-77.0); PLATELET COUNT 184 10^3/UL (140-415); RED CELL DISTRIBUTION WIDTH 15.9 % (11.5-14.5)
[2016-09-09] MEDS: INSULIN ASPART [NOVOLOG] 3 ML PEN SC SCH ×4 (07:51→20:59)
[2016-09-09 08:02] LABS: CREATINE KINASE 263 IU/L (23-200)
[2016-09-09 08:06] LABS: CALCIUM 9.1 mg/dl (8.4-10.2); CHOL/HDL RATIO 7.6 RATIO; CREATININE 1.05 mg/dl (0.44-1.00); IRON 41 ug/dl (35-150); MAGNESIUM 1.9 mg/dl (1.7-2.5); POTASSIUM 3.7 mmol/L (3.5-5.1)
[2016-09-09 08:10] LABS: CK-MB 0.96 ng/ml (0.0-2.4); TROPONIN-I < 0.012 ng/ml (0.00-0.12)
[2016-09-09 08:15] LABS: TOTAL IRON BINDING CAPACITY 378 ug/dl (241-421)
[2016-09-09 08:18] LABS: T3 UPTAKE 35.8 % (23.5-40.5)
--- NOTE | 2016-09-09 08:18 | RADRPT ---
PROCEDURE: Retroperitoneal US. CLINICAL INDICATION: Pain, possible cyst in the left kidney TECHNIQUE: Multiple sonographic images of the kidneys and retroperitoneum were obtained. The imag es were reviewed on a PACS workstation. COMPARISON: 09/08/2016 FINDINGS: The kidneys are normal in size, contour, cortical thickness and cortical echogenicity. The right kidney measures 10.4 cm. The left kidney measures 9.4 cm. There is a 5 mm echogenic focus in the left kidney, suspicious for a stone. There is a 1.1 cm simpl e cyst in the left kidney. There is no evidence for hydronephrosis. The urinary bladder is normal. RPTAT: AA IMPRESSION: Small 5 mm stone in the left kidney. Small simple cyst in the left kidney. .Thomas Casper MD, Date Time Electronically viewed and signed by .Thomas Casper MD, MD on 09/09/2016 08:17 .S/
[2016-09-09 08:32] LABS: THYROID STIMULATING HORMONE 0.987 MIU/L (0.465-4.680)
[2016-09-09] MEDS: BACLOFEN 10 MG TAB PO SCH (09:10)
[2016-09-09] MEDS: POTASSIUM CHLORIDE (SR) 10 MEQ TAB PO SCH (09:10)
[2016-09-09] MEDS: DOCUSATE SODIUM 100 MG CAP PO SCH ×2 (09:10→20:51)
[2016-09-09] MEDS: ENOXAPARIN 30 MG/0.3 ML SYG SC SCH (09:15)
--- NOTE | 2016-09-09 10:51 | RADRPT ---
PROCEDURE: XR Knee. CLINICAL INDICATION: Right knee pain TECHNIQUE: 2 images of the right knee are available for review. COMPARISON: None available FINDINGS: There is an acute minimally angulated proximal fibular shaft fracture about 5 cm from the fibular st yloid. No additional fracture is noted. The bones are osteopenic. Alignment is normal. There is mild tricompartmental osteoarthrosis of the knee. Soft tissues are grossly unremarkable. IMPRESSION: 1. Acute minimally angulated proximal fibular shaft fracture. 2. Background osteopenia. RPTAT: UU .Rai Pizano MD, Date Time Electronically viewed and signed by .Rai Pizano MD, on 09/09/2016 10:51 .K/
--- NOTE | 2016-09-09 10:52 | RADRPT ---
PROCEDURE: XR Tibia and Fibula. CLINICAL INDICATION: Right lower extremity pain TECHNIQUE: 3 views of the right tibia and fibula were obtained. COMPARISON: No prior studies are available for comparison. FINDINGS: There is an acute minimally angulated proximal fibular shaft fracture about 5 cm from the fibular st yloid. No additional fracture is noted. The bones are osteopenic. Alignment is normal. There is mild tricompartmental osteoarthrosis of the knee. There is calcaneal enthesopathy. Soft tissues are grossly unremarkable. IMPRESSION: 1. Acute minimally angulated proximal fibular shaft fracture. 2. Background osteopenia. RPTAT: UU .Rai Pizano MD, MD Date Time Electronically viewed and signed by .Rai Pizano MD, on 09/09/2016 10:52 .K/
--- NOTE | 2016-09-09 11:28 | CONS ---
Date/Time of Note Date/Time of Note DATE: 09/09/16 TIME: 11:15 Assessment/Plan Assessment/Plan Chief Complaint/Hosp Course Syncope: secondary to SBP 70s likely worsened by standing up. Sinus bradycardia in the 50s should not cause syncope. Will check echo Hypotension: As low as 50s at home. Improvement in renal function with IVF suggests volume depletion but also had chills so ?infection as well Bradycardia: Sinus bradycardia, no heart block. On atenolol which is not ideal at her age and with renal issues RUL lung mass: being evaluated Thyroid nodules: being evaluated DM HTN HL -hold atenolol -hold lasix -can restart benicar if BP is elevated -echo -workup of lung/thyroid masses Problems: Consultation Date/Type/Reason Admit Date/Time September 08, 2016 at 19:35 Date of Consultation: September 09, 2016 Type of Consultation: Cardiology Reason for Consultation Syncope, bradycardia Referring Provider: NILDA SHINE of Present Illness 81 yo F with a h/o DM, HTN, HL, who presented due to syncope and was found to have hypotension, bradycardia, acute renal failure, and incidentally found to have lung and thyroid masses. The pt notes that 3 days ago she was not feeling well and checked her BP, it was 50/30. She felt like she would pass out but did not. Her family gave her some home remedies and her BP recovered. The following day she felt ok. Yesterday she felt similar and was having chills but no fevers. Her BP was 70/40. She got up to make herself some coffee to help with her BP and felt dizzy. The next thing she remembers is paramedics helping her. Her BP was apparently 80s in the field. Her Cr was 1.5 on admission and improved with IVF. She was incidentally found to have a RUL lung mass and thyroid nodules which are being worked up. She denies CP or SOB. She takes atenolol 50mg daily without checking her BP but otherwise checks her BP before taking her other meds. No prior syncopal episode. per HPI Past Medical History per HPI Social History Smoking Status: Never smoker Exam/Review of Systems Vital Signs Vitals Vital Signs Date Time Temp Pulse Resp B/P Pulse Ox O2 Delivery O2 Flow Rate FiO2 09/09/16 08:38 78 09/09/16 07:32 98.3 18 125/80 97 09/08/16 17:54 Room Air Intake and Output 09/08/16 09/08/16 09/09/16 15:00 23:00 07:00 Intake Total 400 ml Balance 400 ml Exam Constitutional: alert, oriented Psych: no complaints Head: atraumatic, normocephalic Neck: supple, No jvd Respiratory: clear to auscultation, No crackles/rales Cardiovascular: regular rate and rhythm, systolic murmur (3/6 mid peaking GRAYSON) , No edema Gastrointestinal: non-tender, soft Neurological: nl mental status, nl speech Results EKG: sinus paola (52), no ST changes Result Diagram: 09/09/16 0655 09/09/16 0655 Results 24 hrs Laboratory Tests Test 09/08/16 15:30 09/08/16 15:35 09/08/16 18:47 09/08/16 18:50 Free Thyroxine 1.25 Free Triiodothyronine (T3) pg/mL 3.90 White Blood Count 7.2 Red Blood Count 3.53 L Hemoglobin 10.3 L Hematocrit 33.1 L Mean Corpuscular Volume 93.8 Mean Corpuscular Hemoglobin 29.2 Mean Corpuscular Hemoglobin Concent 31.1 L Red Cell Distribution Width 15.9 H Platelet Count 202 Mean Platelet Volume 10.5 H Neutrophils % 54.4 Lymphocytes % 35.6 Monocytes % 7.1 Eosinophils % 1.1 Basophils % 0.6 Nucleated Red Blood Cells % 0.0 Neutrophils # 3.9 Lymphocytes # 2.6 Monocytes # 0.5 Eosinophils # 0.1 Basophils # 0.0 Nucleated Red Blood Cells # 0.0 Prothrombin Time 13.6 Prothrombin Time Ratio 1.1 INR International Normalized Ratio 1.04 Activated Partial Thromboplast Time 26.9 Sodium Level 140 Potassium Level 4.4 Chloride Level 110 Carbon Dioxide Level 22 Anion Gap 12 Blood Urea Nitrogen 35 H Creatinine 1.53 H Glucose Level 129 Calcium Level 9.5 Total Bilirubin 0.1 L Direct Bilirubin 0.00 Indirect Bilirubin 0.1 Aspartate Amino Transf (AST/SGOT) 38 Alanine Aminotransferase (ALT/SGPT) 39 Alkaline Phosphatase 31 L Troponin I < 0.012 Total Protein 7.1 Albumin 3.9 Globulin 3.20 Albumin/Globulin Ratio 1.21 Thyroid Stimulating Hormone (TSH) 0.147 L Urine Color LT. YELLOW Urine Clarity CLEAR Urine pH 5.5 Urine Specific [place] 1.015 Urine Ketones NEGATIVE Urine Nitrite NEGATIVE Urine Bilirubin NEGATIVE Urine Urobilinogen 0.2 E.U./dL Urine Leukocyte Esterase NEGATIVE Urine Hemoglobin NEGATIVE Urine Glucose NEGATIVE Urine Total Protein NEGATIVE Bedside Urine pH (LAB) 5.5 Bedside Urine Protein (LAB) Trace H Bedside Urine Glucose (UA) Negative Bedside Urine Ketones (LAB) Negative Bedside Urine Blood Negative Bedside Urine Nitrite (LAB) Negative Bedside Urine Leukocyte Esterase (L Negative Test 09/08/16 21:52 09/08/16 22:58 09/09/16 06:55 09/09/16 07:48 Bedside Glucose 121 119 Creatine Kinase 287 H 263 H Creatine Kinase Index 0.2 0.4 Creatinine Kinase MB (Mass) 0.60 0.96 Troponin I < 0.012 < 0.012 White Blood Count 6.0 Red Blood Count 3.50 L Hemoglobin 10.1 L Hematocrit 32.3 L Mean Corpuscular Volume 92.3 Mean Corpuscular Hemoglobin 28.9 L Mean Corpuscular Hemoglobin Concent 31.3 L Red Cell Distribution Width 15.9 H Platelet Count 184 Mean Platelet Volume 10.4 Neutrophils % 61.5 Lymphocytes % 29.6 Monocytes % 6.0 Eosinophils % 1.0 Basophils % 0.7 Nucleated Red Blood Cells % 0.0 Neutrophils # 3.7 Lymphocytes # 1.8 Monocytes # 0.4 Eosinophils # 0.1 Basophils # 0.0 Nucleated Red Blood Cells # 0.0 Sodium Level 142 Potassium Level 3.7 Chloride Level 114 H Carbon Dioxide Level 21 Anion Gap 11 Blood Urea Nitrogen 28 H Creatinine 1.05 H Glucose Level 108 Hemoglobin A1c 5.7 Calcium Level 9.1 Phosphorus Level 3.4 Magnesium Level 1.9 Iron Level 41 Total Iron Binding Capacity 378 Percent Iron Saturation 11 L Triglycerides Level 527 H Cholesterol Level 176 LDL Cholesterol, Calculated 48 HDL Cholesterol 23 L Cholesterol/HDL Ratio 7.6 Thyroid Stimulating Hormone (TSH) 0.987 Free Thyroxine Index 3.72 Thyroxine (T4) 10.4 Triiodothyronine (T3) Uptake 35.8 Medications Medications Current Medications Enoxaparin Sodium (Lovenox) 30 mg DAILY SC Last administered on 09/09/16t 09:15 ; Admin Dose 30 MG; Start 09/09/16 at 09:00 Pantoprazole (Protonix Iv) 40 mg DAILY@06 IV Last administered on 09/09/16 05: 15; Admin Dose 40 MG; Start 09/09/16 at 06:00 Docusate Sodium (Colace) 100 mg BID PO Last administered on 09/09/16 09:10; Admin Dose 100 MG; Start 09/08/16 at 21:00 Acetaminophen (Tylenol Tab) 650 mg Q4H PRN PO PAIN AND OR ELEVATED TEMP; Start 09/08/16 at 21:00 Morphine Sulfate (morphine) 1 mg Q4H PRN IV pain Last administered on 21:21; Admin Dose 1 MG; Start 09/08/16 at 21:00 Miscellaneous Information 1 ea NOTE XX ; Start 09/08/16 at 21:30 Glucose (Glutose) 15 gm Q15M PRN PO DECREASED GLUCOSE; Start 09/08/16 at 21:30 Glucose (Glutose) 22.5 gm Q15M PRN PO DECREASED GLUCOSE; Start 09/08/16 at 21: 30 Dextrose (D50w Syringe) 25 ml Q15M PRN IV DECREASED GLUCOSE; Start 09/08/16 at 21:30 Dextrose (D50w Syringe) 50 ml Q15M PRN IV DECREASED GLUCOSE; Start 09/08/16 at 21:30 Glucagon (Glucagen) 1 mg Q15M PRN IM DECREASED GLUCOSE; Start 09/08/16 at 21:30 Glucose (Glutose) 15 gm Q15M PRN BUCCAL DECREASED GLUCOSE; Start 09/08/16 at 21 :30 Hydralazine HCl (Apresoline) 10 mg Q6H PRN IV ELEVATED BLOOD PRESSURE Last administered on 09/08/16 22:39; Admin Dose 10 MG; Start 09/08/16 at 22:30 Baclofen (Lioresal) 10 mg DAILY PO Last administered on 09/09/16 09:10; Admin Dose 10 MG; Start 09/09/16 at 09:00 Meclizine HCl (Antivert) 25 mg DAILY PRN PO DIZZINESS; Start 09/09/16 at 00:00 Potassium Chloride (Klor-Con 10) 8 meq DAILY PO Last administered on 09/09/16 09:10; Admin Dose 8 MEQ; Start 09/09/16 at 09:00 Hydroxyzine HCl (Atarax) 20 mg QHS PO ; Start 09/09/16 at 00:30 Zolpidem Tartrate (Ambien) 5 mg HS PRN PO INSOMNIA; Start 09/09/16 at 00:15 Acetaminophen/ Hydrocodone Bitart ([place] (5/325)) 1 tab Q4H PRN PO pain Last administered on 09/09/16t 03:44; Admin Dose 1 TAB; Start 09/09/16 at 00:30 ERIN GUTIERREZ September 09, 2016 11:26
--- NOTE | 2016-09-09 12:13 | PN ---
Date/Time of Note Date/Time of Note DATE: 09/09/16 TIME: 12:13 Assessment/Plan VTE Prophylaxis VTE Prophylaxis Intervention: LMWH Lines/Catheters IV [facility] Urinary Cath still in place: No Assessment/Plan Assessment/Plan 81-year-old female managed for the followin. Near syncope with associated hypotension and bradycardia. * Patient has been off beta-dalia therapy with improvement in blood pressure and heart rate. * Cardiology input appreciated/recommendations noted. * Family reports that patient might have been mixing herbs with prescribed medication which could explain symptoms. Patient and family advised not to do this. 2. Right-sided pleural-based lung mass: * CT of the abdomen and pelvis and brain showed no other masses * Pulmonary and hematology oncology consultation still pending. However patient will require CT-guided biopsy. We will order this if okay with pulmonary. * Family also reports that patient has been having recurrent cough occasionally productive over the last few months. 3. Multiple thyroid masses * Initial thyroid panel screen was abnormal, but repeat is completely normal. * Endocrinology consultation has been obtained, will get thyroid ultrasound. 4. Possible renal mass on CT: * Found to be a small incidental cyst on ultrasound. No further interventions required. 5. History of skin cancer in the past, status post radiation many years ago. Patient was told she was cancer free. 6. High blood pressure: * Patient is still having good control of atenolol / follow-up cardiology recommendation 7. Dyslipidemia: * Repeat screen continues to show suboptimal control /will follow goals of therapy Per cardiology 8. Diabetes type 2 with fairly good control. 9. Acute renal failure, rule out chronic kidney disease: improving 10. ASPIRIN ALLERGY. 11. Acute minimally angulated proximal fibular shaft fracture causing right lower extremity pain * Orthopedic consultation obtained with Dr. Tapia, follow recommendations 12. Background osteopenia: Start calcium supplementation, consider biphosphonate therapy 13. Rhabdomyolysis mild: Trend levels of creatinine kinase, gentle hydration if indicated Prophylaxis with Lovenox and PPI. Subjective 24 Hr Interval Summary Free Text/Dictation Patient seen. Still quite lethargic but reports feeling much better. Still complaining of pain in her right leg. Son was at the bedside. He notes that mother has been taking some herbs with her medications of recent. We discussed clinical findings. He wants us to go ahead and order biopsy of lung mass, but once ability to change their mind if necessary. He feels mother might not be strong enough to undergo any form of aggressive intervention. Exam/Review of Systems Vital Signs Vitals Vital Signs Date Time Temp Pulse Resp B/P Pulse Ox O2 Delivery O2 Flow Rate FiO2 09/09/16 11:16 98.2 80 18 142/66 97 09/08/16 17:54 Room Air Intake and Output 09/08/16 09/08/16 09/09/16 15:00 23:00 07:00 Intake Total 400 ml Balance 400 ml Exam GENERAL: Obese female, less lethargic, who is alert, oriented x3, able to answer questions. HEENT: Head was normocephalic without evidence of trauma. Pupils equal and reactive. No scleral jaundice. No conjunctival pallor. Mucous membranes are slightly dry. Posterior pharynx is clear of erythema and exudate. NECK: Supple without lymphadenopathy, but she did have some hyperactivity on the base of the neck on the right. She might have some thyromegaly; it was difficult to assess. CHEST: Clear to auscultation with good air entry on both sides. CARDIOVASCULAR: S1 and S2 with no added sounds or murmurs. Mild bradycardia. ABDOMEN: Obese, soft, nontender, nondistended with normoactive bowel sounds. No surgical scars. LOWER EXTREMITIES: The patient has nonpitting bilateral edema about 2+. The patient is edematous all the way from her feet to just below her knees. Again, per family, this is chronic. NEUROLOGIC: She had no focal deficits other than just lethargy. SKIN: Devoid of rash or jaundice. PSYCHIATRIC: calm Results Result Diagram: 09/09/16 0655 09/09/16 0655 Results 24 hrs Laboratory Tests Test 09/08/16 15:30 09/08/16 15:35 09/08/16 18:47 09/08/16 18:50 Free Thyroxine 1.25 Free Triiodothyronine (T3) pg/mL 3.90 White Blood Count 7.2 Red Blood Count 3.53 L Hemoglobin 10.3 L Hematocrit 33.1 L Mean Corpuscular Volume 93.8 Mean Corpuscular Hemoglobin 29.2 Mean Corpuscular Hemoglobin Concent 31.1 L Red Cell Distribution Width 15.9 H Platelet Count 202 Mean Platelet Volume 10.5 H Neutrophils % 54.4 Lymphocytes % 35.6 Monocytes % 7.1 Eosinophils % 1.1 Basophils % 0.6 Nucleated Red Blood Cells % 0.0 Neutrophils # 3.9 Lymphocytes # 2.6 Monocytes # 0.5 Eosinophils # 0.1 Basophils # 0.0 Nucleated Red Blood Cells # 0.0 Prothrombin Time 13.6 Prothrombin Time Ratio 1.1 INR International Normalized Ratio 1.04 Activated Partial Thromboplast Time 26.9 Sodium Level 140 Potassium Level 4.4 Chloride Level 110 Carbon Dioxide Level 22 Anion Gap 12 Blood Urea Nitrogen 35 H Creatinine 1.53 H Glucose Level 129 Calcium Level 9.5 Total Bilirubin 0.1 L Direct Bilirubin 0.00 Indirect Bilirubin 0.1 Aspartate Amino Transf (AST/SGOT) 38 Alanine Aminotransferase (ALT/SGPT) 39 Alkaline Phosphatase 31 L Troponin I < 0.012 Total Protein 7.1 Albumin 3.9 Globulin 3.20 Albumin/Globulin Ratio 1.21 Thyroid Stimulating Hormone (TSH) 0.147 L Urine Color LT. YELLOW Urine Clarity CLEAR Urine pH 5.5 Urine Specific [place] 1.015 Urine Ketones NEGATIVE Urine Nitrite NEGATIVE Urine Bilirubin NEGATIVE Urine Urobilinogen 0.2 E.U./dL Urine Leukocyte Esterase NEGATIVE Urine Hemoglobin NEGATIVE Urine Glucose NEGATIVE Urine Total Protein NEGATIVE Bedside Urine pH (LAB) 5.5 Bedside Urine Protein (LAB) Trace H Bedside Urine Glucose (UA) Negative Bedside Urine Ketones (LAB) Negative Bedside Urine Blood Negative Bedside Urine Nitrite (LAB) Negative Bedside Urine Leukocyte Esterase (L Negative Test 09/08/16 21:52 09/08/16 22:58 09/09/16 06:55 09/09/16 07:48 Bedside Glucose 121 119 Creatine Kinase 287 H 263 H Creatine Kinase Index 0.2 0.4 Creatinine Kinase MB (Mass) 0.60 0.96 Troponin I < 0.012 < 0.012 White Blood Count 6.0 Red Blood Count 3.50 L Hemoglobin 10.1 L Hematocrit 32.3 L Mean Corpuscular Volume 92.3 Mean Corpuscular Hemoglobin 28.9 L Mean Corpuscular Hemoglobin Concent 31.3 L Red Cell Distribution Width 15.9 H Platelet Count 184 Mean Platelet Volume 10.4 Neutrophils % 61.5 Lymphocytes % 29.6 Monocytes % 6.0 Eosinophils % 1.0 Basophils % 0.7 Nucleated Red Blood Cells % 0.0 Neutrophils # 3.7 Lymphocytes # 1.8 Monocytes # 0.4 Eosinophils # 0.1 Basophils # 0.0 Nucleated Red Blood Cells # 0.0 Sodium Level 142 Potassium Level 3.7 Chloride Level 114 H Carbon Dioxide Level 21 Anion Gap 11 Blood Urea Nitrogen 28 H Creatinine 1.05 H Glucose Level 108 Hemoglobin A1c 5.7 Calcium Level 9.1 Phosphorus Level 3.4 Magnesium Level 1.9 Iron Level 41 Total Iron Binding Capacity 378 Percent Iron Saturation 11 L Triglycerides Level 527 H Cholesterol Level 176 LDL Cholesterol, Calculated 48 HDL Cholesterol 23 L Cholesterol/HDL Ratio 7.6 Thyroid Stimulating Hormone (TSH) 0.987 Free Thyroxine Index 3.72 Thyroxine (T4) 10.4 Triiodothyronine (T3) Uptake 35.8 Test 09/09/16 11:36 Bedside Glucose 142 Medications Medications Current Medications Enoxaparin Sodium (Lovenox) 30 mg DAILY SC Last administered on 09/09/16 09:15 ; Admin Dose 30 MG; Start 09/09/16 at 09:00 Pantoprazole (Protonix Iv) 40 mg DAILY@06 IV Last administered on 09/09/16 05: 15; Admin Dose 40 MG; Start 09/09/16 at 06:00 Docusate Sodium (Colace) 100 mg BID PO Last administered on 09/09/16 09:10; Admin Dose 100 MG; Start 09/08/16 at 21:00 Acetaminophen (Tylenol Tab) 650 mg Q4H PRN PO PAIN AND OR ELEVATED TEMP; Start 09/08/16 at 21:00 Morphine Sulfate (morphine) 1 mg Q4H PRN IV pain Last administered on 21:21; Admin Dose 1 MG; Start 09/08/16 at 21:00 Miscellaneous Information 1 ea NOTE XX ; Start 09/08/16 at 21:30 Glucose (Glutose) 15 gm Q15M PRN PO DECREASED GLUCOSE; Start 09/08/16 at 21:30 Glucose (Glutose) 22.5 gm Q15M PRN PO DECREASED GLUCOSE; Start 09/08/16 at 21: 30 Dextrose (D50w Syringe) 25 ml Q15M PRN IV DECREASED GLUCOSE; Start 09/08/16 at 21:30 Dextrose (D50w Syringe) 50 ml Q15M PRN IV DECREASED GLUCOSE; Start 09/08/16 at 21:30 Glucagon (Glucagen) 1 mg Q15M PRN IM DECREASED GLUCOSE; Start 09/08/16 at 21:30 Glucose (Glutose) 15 gm Q15M PRN BUCCAL DECREASED GLUCOSE; Start 09/08/16 at 21 :30 Hydralazine HCl (Apresoline) 10 mg Q6H PRN IV ELEVATED BLOOD PRESSURE Last administered on 09/08/16 22:39; Admin Dose 10 MG; Start 09/08/16 at 22:30 Baclofen (Lioresal) 10 mg DAILY PO Last administered on 09/09/16 09:10; Admin Dose 10 MG; Start 09/09/16 at 09:00 Meclizine HCl (Antivert) 25 mg DAILY PRN PO DIZZINESS; Start 09/09/16 at 00:00 Potassium Chloride (Klor-Con 10) 8 meq DAILY PO Last administered on 09/09/16 09:10; Admin Dose 8 MEQ; Start 09/09/16 at 09:00 Hydroxyzine HCl (Atarax) 20 mg QHS PO ; Start 09/09/16 at 00:30 Zolpidem Tartrate (Ambien) 5 mg HS PRN PO INSOMNIA; Start 09/09/16 at 00:15 Acetaminophen/ Hydrocodone Bitart ([place] (5/325)) 1 tab Q4H PRN PO pain Last administered on 09/09/16 03:44; Admin Dose 1 TAB; Start 09/09/16 at 00:30 Procedures Procedures PROCEDURE: XR Tibia and Fibula. CLINICAL INDICATION: Right lower extremity pain TECHNIQUE: 3 views of the right tibia and fibula were obtained. COMPARISON: No prior studies are available for comparison. FINDINGS: There is an acute minimally angulated proximal fibular shaft fracture about 5 cm from the fibular styloid. No additional fracture is noted. The bones are osteopenic. Alignment is normal. There is mild tricompartmental osteoarthrosis of the knee. There is calcaneal enthesopathy. Soft tissues are grossly unremarkable. IMPRESSION: 1. Acute minimally angulated proximal fibular shaft fracture. 2. Background osteopenia. RPTAT: UU .Rai Pizano MD, MD Date Time Electronically viewed and signed by .Rai Pizano MD, on 09/09/2016 10: 52 .K/ CC: YASMANI SEXTON BOLATITO M. September 09, 2016 12:13
--- NOTE | 2016-09-09 13:25 | CONS ---
Date/Time of Note Date/Time of Note DATE: 09/09/16 TIME: 13:24 Consultation Date/Type/Reason Admit Date/Time September 08, 2016 at 19:35 Date of Consultation: September 09, 2016 Type of Consultation: Pulmonary Hx of Present Illness Consultation note dictated [id number]. Findings discussed with Dr. SHINE. Psychological: no complaints Social History Smoking Status: Never smoker Exam/Review of Systems Vital Signs Vitals Vital Signs Date Time Temp Pulse Resp B/P Pulse Ox O2 Delivery O2 Flow Rate FiO2 09/09/16 12:27 79 09/09/16 11:16 98.2 18 142/66 97 09/08/16 17:54 Room Air Intake and Output 09/08/16 09/08/16 09/09/16 15:00 23:00 07:00 Intake Total 400 ml Balance 400 ml Results Result Diagram: 09/09/16 0655 09/09/16 0655 Results 24 hrs Laboratory Tests Test 09/08/16 15:30 09/08/16 15:35 09/08/16 18:47 09/08/16 18:50 Free Thyroxine 1.25 Free Triiodothyronine (T3) pg/mL 3.90 White Blood Count 7.2 Red Blood Count 3.53 L Hemoglobin 10.3 L Hematocrit 33.1 L Mean Corpuscular Volume 93.8 Mean Corpuscular Hemoglobin 29.2 Mean Corpuscular Hemoglobin Concent 31.1 L Red Cell Distribution Width 15.9 H Platelet Count 202 Mean Platelet Volume 10.5 H Neutrophils % 54.4 Lymphocytes % 35.6 Monocytes % 7.1 Eosinophils % 1.1 Basophils % 0.6 Nucleated Red Blood Cells % 0.0 Neutrophils # 3.9 Lymphocytes # 2.6 Monocytes # 0.5 Eosinophils # 0.1 Basophils # 0.0 Nucleated Red Blood Cells # 0.0 Prothrombin Time 13.6 Prothrombin Time Ratio 1.1 INR International Normalized Ratio 1.04 Activated Partial Thromboplast Time 26.9 Sodium Level 140 Potassium Level 4.4 Chloride Level 110 Carbon Dioxide Level 22 Anion Gap 12 Blood Urea Nitrogen 35 H Creatinine 1.53 H Glucose Level 129 Calcium Level 9.5 Total Bilirubin 0.1 L Direct Bilirubin 0.00 Indirect Bilirubin 0.1 Aspartate Amino Transf (AST/SGOT) 38 Alanine Aminotransferase (ALT/SGPT) 39 Alkaline Phosphatase 31 L Troponin I < 0.012 Total Protein 7.1 Albumin 3.9 Globulin 3.20 Albumin/Globulin Ratio 1.21 Thyroid Stimulating Hormone (TSH) 0.147 L Urine Color LT. YELLOW Urine Clarity CLEAR Urine pH 5.5 Urine Specific [place] 1.015 Urine Ketones NEGATIVE Urine Nitrite NEGATIVE Urine Bilirubin NEGATIVE Urine Urobilinogen 0.2 E.U./dL Urine Leukocyte Esterase NEGATIVE Urine Hemoglobin NEGATIVE Urine Glucose NEGATIVE Urine Total Protein NEGATIVE Bedside Urine pH (LAB) 5.5 Bedside Urine Protein (LAB) Trace H Bedside Urine Glucose (UA) Negative Bedside Urine Ketones (LAB) Negative Bedside Urine Blood Negative Bedside Urine Nitrite (LAB) Negative Bedside Urine Leukocyte Esterase (L Negative Test 09/08/16 21:52 09/08/16 22:58 09/09/16 06:55 09/09/16 07:48 Bedside Glucose 121 119 Creatine Kinase 287 H 263 H Creatine Kinase Index 0.2 0.4 Creatinine Kinase MB (Mass) 0.60 0.96 Troponin I < 0.012 < 0.012 White Blood Count 6.0 Red Blood Count 3.50 L Hemoglobin 10.1 L Hematocrit 32.3 L Mean Corpuscular Volume 92.3 Mean Corpuscular Hemoglobin 28.9 L Mean Corpuscular Hemoglobin Concent 31.3 L Red Cell Distribution Width 15.9 H Platelet Count 184 Mean Platelet Volume 10.4 Neutrophils % 61.5 Lymphocytes % 29.6 Monocytes % 6.0 Eosinophils % 1.0 Basophils % 0.7 Nucleated Red Blood Cells % 0.0 Neutrophils # 3.7 Lymphocytes # 1.8 Monocytes # 0.4 Eosinophils # 0.1 Basophils # 0.0 Nucleated Red Blood Cells # 0.0 Sodium Level 142 Potassium Level 3.7 Chloride Level 114 H Carbon Dioxide Level 21 Anion Gap 11 Blood Urea Nitrogen 28 H Creatinine 1.05 H Glucose Level 108 Hemoglobin A1c 5.7 Calcium Level 9.1 Phosphorus Level 3.4 Magnesium Level 1.9 Iron Level 41 Total Iron Binding Capacity 378 Percent Iron Saturation 11 L Triglycerides Level 527 H Cholesterol Level 176 LDL Cholesterol, Calculated 48 HDL Cholesterol 23 L Cholesterol/HDL Ratio 7.6 Thyroid Stimulating Hormone (TSH) 0.987 Free Thyroxine Index 3.72 Thyroxine (T4) 10.4 Triiodothyronine (T3) Uptake 35.8 Test 09/09/16 11:36 Bedside Glucose 142 Medications Medications Current Medications Enoxaparin Sodium (Lovenox) 30 mg DAILY SC Last administered on 09/09/16 09:15 ; Admin Dose 30 MG; Start 09/09/16 at 09:00 Pantoprazole (Protonix Iv) 40 mg DAILY@06 IV Last administered on 09/09/16 05: 15; Admin Dose 40 MG; Start 09/09/16 at 06:00 Docusate Sodium (Colace) 100 mg BID PO Last administered on 09/09/16 09:10; Admin Dose 100 MG; Start 09/08/16 at 21:00 Acetaminophen (Tylenol Tab) 650 mg Q4H PRN PO PAIN AND OR ELEVATED TEMP; Start 09/08/16 at 21:00 Morphine Sulfate (morphine) 1 mg Q4H PRN IV pain Last administered on 21:21; Admin Dose 1 MG; Start 09/08/16 at 21:00 Miscellaneous Information 1 ea NOTE XX ; Start 09/08/16 at 21:30 Glucose (Glutose) 15 gm Q15M PRN PO DECREASED GLUCOSE; Start 09/08/16 at 21:30 Glucose (Glutose) 22.5 gm Q15M PRN PO DECREASED GLUCOSE; Start 09/08/16 at 21: 30 Dextrose (D50w Syringe) 25 ml Q15M PRN IV DECREASED GLUCOSE; Start 09/08/16 at 21:30 Dextrose (D50w Syringe) 50 ml Q15M PRN IV DECREASED GLUCOSE; Start 09/08/16 at 21:30 Glucagon (Glucagen) 1 mg Q15M PRN IM DECREASED GLUCOSE; Start 09/08/16 at 21:30 Glucose (Glutose) 15 gm Q15M PRN BUCCAL DECREASED GLUCOSE; Start 09/08/16 at 21 :30 Hydralazine HCl (Apresoline) 10 mg Q6H PRN IV ELEVATED BLOOD PRESSURE Last administered on 09/08/16 22:39; Admin Dose 10 MG; Start 09/08/16 at 22:30 Baclofen (Lioresal) 10 mg DAILY PO Last administered on 09/09/16 09:10; Admin Dose 10 MG; Start 09/09/16 at 09:00 Meclizine HCl (Antivert) 25 mg DAILY PRN PO DIZZINESS; Start 09/09/16 at 00:00 Potassium Chloride (Klor-Con 10) 8 meq DAILY PO Last administered on 09/09/16 09:10; Admin Dose 8 MEQ; Start 09/09/16 at 09:00 Hydroxyzine HCl (Atarax) 20 mg QHS PO ; Start 09/09/16 at 00:30 Zolpidem Tartrate (Ambien) 5 mg HS PRN PO INSOMNIA; Start 09/09/16 at 00:15 Acetaminophen/ Hydrocodone Bitart ([place] (5/325)) 1 tab Q4H PRN PO pain Last administered on 09/09/16 03:44; Admin Dose 1 TAB; Start 09/09/16 at 00:30 MARJORIE HALE September 09, 2016 13:25
--- NOTE | 2016-09-09 14:18 | CONS ---
DATE OF ADMISSION: 09/08/2016 DATE OF CONSULTATION: 09/09/2016 TYPE OF CONSULTATION: PULMONARY TIME: 1:15 p.m. REFERRING PHYSICIAN: Dr. Shine REASON FOR REFERRAL: Evaluation of right upper lobe lung mass. HISTORY OF PRESENT ILLNESS: Ms. Smith is a pleasant 81-year-old female who was admitted yesterday with complaints of not feeling well. The patient also has tripped over and injured her right leg. Further evaluation revealed that the patient found to be bradycardic and also tibia and fibula x-ra y was done which is showing a proximal fibular fracture on the right side. Subsequent workup also w as done because of falls that included CT of the chest which is showing right upper lobe mass lesion with cavitation, indicative of underlying bronchogenic carcinoma. The patient has been complaining of chronic cough for the last several years, without any recent weight loss, any hemoptysis or sput um production. Denies any chest pain. No history of any fever, nausea, vomiting. PAST MEDICAL HISTORY: 1. Hypertension. 2. Diabetes. 3. Hyperlipidemia. 4. Gout. According to the patient's son, the patient is quite ambulatory at home. She does have a history of appendectomy, tonsillectomy as well as skin cancer with a short course of radiation. MEDICATIONS: Currently, the patient is on: 1. Normal saline at 75 mL had 100 mL per hour. 2. Baclofen 10 mg daily. 3. Lovenox 30 mg daily. 4. Fentanyl on a p.r.n. basis. 5. Hydrocodone on a p.r.n. basis. 6. Morphine on a p.r.n. basis. 7. Sliding scale insulin. 8. Protonix 40 mg IV daily. ALLERGIES: ASPIRIN. SOCIAL HISTORY: The patient never smoked. No history of alcohol or drug abuse. FAMILY HISTORY: The patient is a . She has 1 son who is currently present in the room. OCCUPATIONAL HISTORY: Noncontributory. REVIEW OF SYSTEMS: Denies any headache, seizures, visual changes, chest pain, angina or wheezing. Complains of chronic cough. Denies any sputum production, hemoptysis, any nausea, vomiting, abdomin al pain, melena, hematochezia or edema. Denies any orthopnea, any weight loss, night sweats. PHYSICAL EXAMINATION: GENERAL: Elderly lady, awake, alert, currently in no distress. VITAL SIGNS: Temperature is 98.2 degrees Fahrenheit, heart rate of 78 per minute, respiratory rate is 18 per minute, blood pressure 142/66, O2 sat 97% on 2 liter nasal cannula. HEENT: Supple neck, no JVD, midline trachea, no thyromegaly. Pharynx is clear, no neck bruits. Fa ir dentition. CHEST: Clear to auscultation. HEART: S1, S2 audible. No murmurs, regular rhythm. ABDOMEN: Soft, protuberant. No organomegaly. Bowel sounds audible, nontender. EXTREMITIES: There is mild right knee tenderness, no swelling. Pulses 1+ bilaterally. There is no clubbing. NEUROLOGIC: Cranial nerves are normal. There is no motor or sensory deficit. IMAGING: Chest x-ray was reviewed from yesterday, which is showing right upper lobe infiltrate/mass lesion. CT of the chest also was reviewed which is showing a cavitary mass in the right upper lobe area abutting the pleura. The patient had bilateral lower extremity ultrasound done which is negat kalia for DVT. Right lower extremity x-ray showing right proximal fibular fracture. CT head: Unrema rkable. LABORATORY DATA: From today, sodium 142, potassium 3.7, chloride 114, bicarbonate 21, glucose of 10 8, BUN 28, creatinine 1.0. White count 6.0, hemoglobin 10.1, platelet count of 184. ASSESSMENT AND PLAN: 1. Patient admitted with bradycardia as well as a fall resulting in right fibular fracture. 2. Incidental discovery of right upper lobe mass which is suspicious for cavitating bronchogenic ca rcinoma. 3. History of hypertension, diabetes and gout. RECOMMENDATIONS: Continue current treatment. Schedule a CT-guided biopsy of the right upper lobe m ass lesion and specimen also needs to be sent for Gram stain, fungal and AFB stains as well. I did have a very detailed discussion with patient's son at bedside and the patient's son is agreeable for biopsy. Dictated By: MARJORIE HALE MD AQ/NTS Conf#: [id number] DID#: [id number] CC: NILDA SHINE MD;*EndCC*
[2016-09-09] MEDS: morphine 2 MG INJ IV PRN (14:35)
--- NOTE | 2016-09-09 15:31 | RADRPT ---
Echocardiogram Report Patient Name: ORALIA GOMES Gender: Female Date: 1935 Study Date: 09-Sep-2016 Manager Employee Relations: [employer] Location: [id number] Ref. Physician: NILDA SHINE Quality: Adequate Procedures: Transthoracic echocardiogram with complete 2D, M-Mode, and doppler examination. Indications: Near Syncopy. 2D/M Mode Doppler Measurement Value Normal Ranges Measurement Value Normal Ranges LVIDd 2D 4.3 3.5 - 5.6 cm AV Peak Donal 2.0 m/sec LVIDs 2D 2.9 2.1 - 4.1 cm AV Peak PG 15.4 mmHg LVPWd 2D 1.2 0.6 - 1.1 cm LVOT Peak Donal 1.0 m/sec IVSd 2D 1.2 0.6 - 1.1 cm LVOT Peak PG 3.6 mmHg AoR Diam 2D 2.2 2.0 - 3.7 cm MV E Peak Donal 0.9 m/sec EDV 2D 83.5 cm3 MV A Peak Donal 0.6 m/sec ESV 2D 24.3 cm3 MV E/A 1.4 LA Dimen 2D 3.6 2.3 - 4.0 cm MV Decel Time 231 msec MV Decel [place] 4 MV E/A 1.4 TR Peak Donal 2.4 m/sec TR Peak PG 23.9 mmHg RVSP 32.0 mmHg Findings Left Ventricle: Normal left ventricular systolic function. Normal left ventricular cavity size. Mild concentric left ventricular hypertrophy. Ejection fraction is visually estimated at 65 %. Tissue Doppler/Mitral Doppler indices are consistent with impaired relaxation (Stage I diastolic dysfunction). Right Ventricle: Normal right ventricular size. Normal right ventricular systolic function. Left Atrium: There is mild enlargement of left atrium. Right Atrium: The right atrium is normal in size. Mitral Valve: Mild mitral annular calcification. Mild mitral valve regurgitation. Aortic Valve: Normal appearance of the aortic valve. No significant aortic stenosis or insufficiency. Tricuspid Valve: Normal appearance of the tricuspid valve. Estimated peak PA systolic pressure 27 mmHg. There is mild tricuspid regurgitation. Pericardium: Normal pericardium with no significant pericardial effusion. Aorta: Normal aortic root. IVC: Normal size and normal respiratory collapse consistent with normal right atrial pressure. Conclusions Normal left ventricular systolic function. Normal left ventricular cavity size. Mild concentric left ventricular hypertrophy. Ejection fraction is visually estimated at 65 %. Tissue Doppler/Mitral Doppler indices are consistent with impaired relaxation (Stage I diastolic dysfunction). No significant valvular stenosis or regurgitation seen. Estimated peak PA systolic pressure 27 mmHg based on RA pressure of 3 mmHg. Electronically Signed By: Juan Alvarado 09-Sep-2016 15:31:02 -0700 Patient Name: ORALIA GOMES Study Date: 09-Sep-2016 [id number]
--- NOTE | 2016-09-09 21:35 | CONS ---
Date/Time of Note Date/Time of Note DATE: 09/09/16 TIME: 21:33 Assessment/Plan Assessment/Plan Chief Complaint/Hosp Course ASSESSMENT: An 81-year-old female who presents today with lethargy and a near- syncopal episode Right-sided pleural-based lung mass, multiple thyroid masses, possible renal mass in the setting of a history of skin cancer in the past, status post radiation, concerning for metastatic disease versus infection with incidental findings. SEVERE WT LOSS WITH DECREASED APPETITE R/O UNDERLYING NEOPLASIA CT-QUIDED BX LUNG MASS ANEMIA COMPLETE W-UP Near syncope with associated hypotension and bradycardia. Rule out acute coronary syndrome. High blood pressure, good control. Dyslipidemia, stable. Diabetes type 2 with fairly good control. Acute renal failure, rule out chronic kidney disease. ASPIRIN ALLERGY. Low TSH, rule out hypothyroidism. Problems: Consultation Date/Type/Reason Admit Date/Time September 08, 2016 at 19:35 Initial Consult Date 09/08/16 Type of Consultation: hemeonc Reason for Consultation CANDI MASS Referring Provider: NILDA SHINE 24 HR Interval Summary Free Text/Dictation NO NEW EVENTS FOR LUNG BX TOMORROW Exam/Review of Systems Vital Signs Vitals Vital Signs Date Time Temp Pulse Resp B/P Pulse Ox O2 Delivery O2 Flow Rate FiO2 09/09/16 20:16 87 09/09/16 20:04 97.8 20 152/68 92 09/08/16 17:54 Room Air Intake and Output 09/08/16 09/08/16 09/09/16 15:00 23:00 07:00 Intake Total 400 ml Balance 400 ml Exam Const: Alert, anxious, moderate distress. Head: Atraumatic Eyes: Normal Conjunctiva ENT: Normal External Ears, Nose and Mouth. Neck: Full range of motion. No JVD. Nontender. Resp: Clear to auscultation bilaterally Cardio: Bradycardic. Regular rate and rhythm, no murmurs Abd: Soft, non tender, non distended. Normal bowel sounds Skin: No petechiae or rashes Back: No midline or flank tenderness Ext: No cyanosis. 1-2+ lower extremity edema. Neur: Awake and alert. Cranial nerves II through XII are grossly intact. Motor and sensory equal bilaterally. No pronator drift. Psych: Normal Mood and Affect NO PALPABLE MASSES NO PATH [id number] Results Result Diagram: 09/09/1655 09/09/1655 Results 24 hrs Laboratory Tests Test 09/08/16 21:52 09/08/16 22:58 09/09/16 06:55 09/09/16 07:48 Bedside Glucose 121 119 Creatine Kinase 287 H 263 H Creatine Kinase Index 0.2 0.4 Creatinine Kinase MB (Mass) 0.60 0.96 Troponin I < 0.012 < 0.012 White Blood Count 6.0 Red Blood Count 3.50 L Hemoglobin 10.1 L Hematocrit 32.3 L Mean Corpuscular Volume 92.3 Mean Corpuscular Hemoglobin 28.9 L Mean Corpuscular Hemoglobin Concent 31.3 L Red Cell Distribution Width 15.9 H Platelet Count 184 Mean Platelet Volume 10.4 Neutrophils % 61.5 Lymphocytes % 29.6 Monocytes % 6.0 Eosinophils % 1.0 Basophils % 0.7 Nucleated Red Blood Cells % 0.0 Neutrophils # 3.7 Lymphocytes # 1.8 Monocytes # 0.4 Eosinophils # 0.1 Basophils # 0.0 Nucleated Red Blood Cells # 0.0 Sodium Level 142 Potassium Level 3.7 Chloride Level 114 H Carbon Dioxide Level 21 Anion Gap 11 Blood Urea Nitrogen 28 H Creatinine 1.05 H Glucose Level 108 Hemoglobin A1c 5.7 Calcium Level 9.1 Phosphorus Level 3.4 Magnesium Level 1.9 Iron Level 41 Total Iron Binding Capacity 378 Percent Iron Saturation 11 L Triglycerides Level 527 H Cholesterol Level 176 LDL Cholesterol, Calculated 48 HDL Cholesterol 23 L Cholesterol/HDL Ratio 7.6 Thyroid Stimulating Hormone (TSH) 0.987 Free Thyroxine Index 3.72 Thyroxine (T4) 10.4 Triiodothyronine (T3) Uptake 35.8 Test 09/09/16 11:36 09/09/16 17:10 09/09/16 20:11 Bedside Glucose 142 157 162 Medications Medications Current Medications Enoxaparin Sodium (Lovenox) 30 mg DAILY SC Last administered on 09/09/16 09:15 ; Admin Dose 30 MG; Start 09/09/16 at 09:00; Status Future hold Pantoprazole (Protonix Iv) 40 mg DAILY@06 IV Last administered on 09/09/16 05: 15; Admin Dose 40 MG; Start 09/09/16 at 06:00 Docusate Sodium (Colace) 100 mg BID PO Last administered on 09/09/16 20:51; Admin Dose 100 MG; Start 09/08/16 at 21:00 Acetaminophen (Tylenol Tab) 650 mg Q4H PRN PO PAIN AND OR ELEVATED TEMP; Start 09/08/16 at 21:00 Morphine Sulfate (morphine) 1 mg Q4H PRN IV pain Last administered on 14:35; Admin Dose 1 MG; Start 09/08/16 at 21:00 Miscellaneous Information 1 ea NOTE XX ; Start 09/08/16 at 21:30 Glucose (Glutose) 15 gm Q15M PRN PO DECREASED GLUCOSE; Start 09/08/16 at 21:30 Glucose (Glutose) 22.5 gm Q15M PRN PO DECREASED GLUCOSE; Start 09/08/16 at 21: 30 Dextrose (D50w Syringe) 25 ml Q15M PRN IV DECREASED GLUCOSE; Start 09/08/16 at 21:30 Dextrose (D50w Syringe) 50 ml Q15M PRN IV DECREASED GLUCOSE; Start 09/08/16 at 21:30 Glucagon (Glucagen) 1 mg Q15M PRN IM DECREASED GLUCOSE; Start 09/08/16 at 21:30 Glucose (Glutose) 15 gm Q15M PRN BUCCAL DECREASED GLUCOSE; Start 09/08/16 at 21 :30 Hydralazine HCl (Apresoline) 10 mg Q6H PRN IV ELEVATED BLOOD PRESSURE Last administered on 09/08/16 22:39; Admin Dose 10 MG; Start 09/08/16 at 22:30 Baclofen (Lioresal) 10 mg DAILY PO Last administered on 09/09/16 09:10; Admin Dose 10 MG; Start 09/09/16 at 09:00 Meclizine HCl (Antivert) 25 mg DAILY PRN PO DIZZINESS; Start 09/09/16 at 00:00 Potassium Chloride (Klor-Con 10) 8 meq DAILY PO Last administered on 09/09/16 09:10; Admin Dose 8 MEQ; Start 09/09/16 at 09:00 Hydroxyzine HCl (Atarax) 20 mg QHS PO Last administered on 09/09/16 20:51; Admin Dose 20 MG; Start 09/09/16 at 00:30 Zolpidem Tartrate (Ambien) 5 mg HS PRN PO INSOMNIA; Start 09/09/16 at 00:15 Acetaminophen/ Hydrocodone Bitart ([place] (5/325)) 1 tab Q4H PRN PO pain Last administered on 09/09/16t 18:31; Admin Dose 1 TAB; Start 09/09/16 at 00:30 HEIDY ORTIZ MD September 09, 2016 21:35
[2016-09-09 23:12] LABS: RETICULOCYTE COUNT % 2.7 % (0.5-1.5)
[2016-09-09 23:34] LABS: LACTATE DEHYDROGENASE 296 IU/L (313-618); URIC ACID 2.5 mg/dl (3.1-7.9)
[2016-09-10] VITALS (24 sets, daily range): BP systolic 136–204; BP diastolic 64–95; PULSE 55–105; RESP 14–20
[2016-09-10 00:05] LABS: IRON 39 ug/dl (35-150)
[2016-09-10 00:07] LABS: FERRITIN 77.1 ng/ml (11.1-264.0)
[2016-09-10 00:14] LABS: TOTAL IRON BINDING CAPACITY 390 ug/dl (241-421)
[2016-09-10 00:36] LABS: CARCINOEMBRYONIC ANTIGEN 1.9 ng/ml (0.0-5.0)
[2016-09-10 00:58] LABS: FOLATE > 20.0 ng/ml (2.8-20.0)
--- NOTE | 2016-09-10 03:37 | RADRPT ---
PROCEDURE: US thyroid. CLINICAL INDICATION: Multiple thyroid nodules TECHNIQUE: Multiple sonographic images of the thyroid were obtained utilizing a linear array trans ducer with grayscale and color-flow and a Doppler imaging. The images were reviewed on a high-resolu [employer] PACS workstation. COMPARISON: No prior studies are available for comparison. FINDINGS: The thyroid gland is heterogeneous in echogenicity and slightly increased in size. The right lobe measures 4.9 x 1.6 x 2 cm. The left lobe measures 5.7 x 2.5 x 2.3 cm. The isthmus measures 13 mm. The thyroid is diffusely heterogeneous with multiple poorly defined nodules. 1 probable partially c alcified nodule in the upper left thyroid was measured by the early learning teacher and measures 1.1 x 1.1 cm. Isthmus nodule measuring 1.3 x 1.5 cm was also measured. No other nodules were measured specifica lly. IMPRESSION: Diffuse multinodular goiter. Thyroid scan could be considered to evaluate for cold nodule. RPTAT: HLBE Physician Tone Date Time Electronically viewed and signed by Physician Tone on 09/10/2016 03:37 LE/
[2016-09-10] MEDS: PANTOPRAZOLE 40 MG INJ IV SCH (05:14)
[2016-09-10 07:34] LABS: ADD SCAN DIFF NO
[2016-09-10 07:41] LABS: BASOPHILS % 0.5 % (0.0-2.0); EOSINOPHILS # 0.1 10^3/ul (0.0-0.5); EOSINOPHILS % 2.4 % (0.0-7.0); HEMATOCRIT 32.5 % (37.0-47.0); HEMOGLOBIN 10.2 g/dl (12.0-16.0); LYMPHOCYTES # 1.5 10^3/ul (0.8-2.9); LYMPHOCYTES % 36.2 % (15.0-51.0); MEAN CORPUSCULAR HGB CONC 31.4 g/dl (32.0-37.0); MEAN CORPUSCULAR VOLUME 92.3 fl (82.0-101.0); MONOCYTE # 0.3 10^3/ul (0.3-0.9); MONOCYTES % 6.7 % (0.0-11.0); NEUTROPHIL # 2.2 10^3/ul (1.6-7.5); NEUTROPHILS % 52.5 % (39.0-77.0); PLATELET COUNT 172 10^3/UL (140-415); RED BLOOD COUNT 3.52 10^6/ul (4.20-5.40); RED CELL DISTRIBUTION WIDTH 15.9 % (11.5-14.5); WHITE BLOOD COUNT 4.2 10^3/ul (4.8-10.8)
[2016-09-10] MEDS: INSULIN ASPART [NOVOLOG] 3 ML PEN SC SCH ×4 (07:55→20:49)
[2016-09-10 08:02] LABS: CALCIUM 9.1 mg/dl (8.4-10.2); CREATININE 0.93 mg/dl (0.44-1.00); POTASSIUM 3.7 mmol/L (3.5-5.1)
[2016-09-10] MEDS: DOCUSATE SODIUM 100 MG CAP PO SCH ×2 (08:08→20:48)
[2016-09-10] MEDS: BACLOFEN 10 MG TAB PO SCH (08:08)
[2016-09-10] MEDS: POTASSIUM CHLORIDE (SR) 10 MEQ TAB PO SCH (08:08)
[2016-09-10] MEDS: morphine 2 MG INJ IV PRN ×2 (08:08→20:57)
[2016-09-10] MEDS: LOSARTAN 25 MG TAB PO SCH (09:30)
--- NOTE | 2016-09-10 10:57 | PN ---
Date/Time of Note Date/Time of Note DATE: 09/10/16 TIME: 10:55 Assessment/Plan VTE Prophylaxis VTE Prophylaxis Intervention: LMWH Lines/Catheters IV [facility] Saline Lock Urinary Cath still in place: No Assessment/Plan Assessment/Plan 81-year-old female managed for the followin. Near syncope with associated hypotension and bradycardia. * Patient has been off beta-dalia therapy with improvement in blood pressure and heart rate. * Cardiology input appreciated/recommendations noted. * Family reports that patient might have been mixing herbs with prescribed medication which could explain symptoms. Patient and family advised not to do this. 2. Right-sided pleural-based lung mass: * CT of the abdomen and pelvis and brain showed no other masses * Pulmonary and hematology oncology consultation still pending. However patient will require CT-guided biopsy. We will order this if okay with pulmonary. * Family also reports that patient has been having recurrent cough occasionally productive over the last few months. 3. Multiple thyroid masses * Initial thyroid panel screen was abnormal, but repeat is completely normal. * Endocrinology consultation has been obtained, will get thyroid ultrasound. 4. Possible renal mass on CT: * Found to be a small incidental cyst on ultrasound. No further interventions required. 5. History of skin cancer in the past, status post radiation many years ago. Patient was told she was cancer free. 6. High blood pressure: * Patient is still having good control of atenolol / follow-up cardiology recommendation 7. Dyslipidemia: * Repeat screen continues to show suboptimal control /will follow goals of therapy Per cardiology 8. Diabetes type 2 with fairly good control. 9. Acute renal failure, rule out chronic kidney disease: improving 10. ASPIRIN ALLERGY. 11. Acute minimally angulated proximal fibular shaft fracture causing right lower extremity pain * Orthopedic consultation obtained with Dr. Tapia, follow recommendations 12. Background osteopenia: Start calcium supplementation, consider biphosphonate therapy 13. Rhabdomyolysis mild: Trend levels of creatinine kinase, gentle hydration if indicated Prophylaxis with Lovenox and PPI. Subjective 24 Hr Interval Summary Free Text/Dictation CT-guided biopsy planned for today No new issues Exam/Review of Systems Vital Signs Vitals Vital Signs Date Time Temp Pulse Resp B/P Pulse Ox O2 Delivery O2 Flow Rate FiO2 09/10/16 09:13 57 148/74 09/10/16 07:04 97.9 19 93 09/09/16 21:20 Room Air Intake and Output 09/09/16 09/09/16 09/10/16 15:00 23:00 07:00 Intake Total 680 ml 300 ml Balance 680 ml 300 ml Exam GENERAL: Obese female, less lethargic, who is alert, oriented x3, able to answer questions. HEENT: Head was normocephalic without evidence of trauma. Pupils equal and reactive. No scleral jaundice. No conjunctival pallor. Mucous membranes are slightly dry. Posterior pharynx is clear of erythema and exudate. NECK: Supple without lymphadenopathy, but she did have some hyperactivity on the base of the neck on the right. She might have some thyromegaly; it was difficult to assess. CHEST: Clear to auscultation with good air entry on both sides. CARDIOVASCULAR: S1 and S2 with no added sounds or murmurs. ABDOMEN: Obese, soft, nontender, nondistended with normoactive bowel sounds. No surgical scars. LOWER EXTREMITIES: The patient has nonpitting bilateral edema about 2+. The patient is edematous all the way from her feet to just below her knees. Again, per family, this is chronic. NEUROLOGIC: She had no focal deficits other than just lethargy. SKIN: Devoid of rash or jaundice. PSYCHIATRIC: calm Results Result Diagram: 09/10/16 0629 09/10/16 0629 Results 24 hrs Laboratory Tests Test 09/09/16 11:36 09/09/16 17:10 09/09/16 20:11 09/09/16 22:42 Bedside Glucose 142 157 162 Erythrocyte Sedimentation Rate 33 H Absolute Reticulocyte Count 0.098 Percent Reticulocyte Count 2.7 H Uric Acid 2.5 L Iron Level 39 Total Iron Binding Capacity 390 Percent Iron Saturation 10 L Ferritin 77.1 Lactate Dehydrogenase 296 L Carcinoembryonic Antigen 1.9 Vitamin B12 Level 213 L Folate > 20.0 H Thyroid Stimulating Hormone (TSH) 2.350 Test 09/10/16 06:29 09/10/16 08:07 White Blood Count 4.2 #L Red Blood Count 3.52 L Hemoglobin 10.2 L Hematocrit 32.5 L Mean Corpuscular Volume 92.3 Mean Corpuscular Hemoglobin 29.0 Mean Corpuscular Hemoglobin Concent 31.4 L Red Cell Distribution Width 15.9 H Platelet Count 172 Mean Platelet Volume 10.0 Neutrophils % 52.5 Lymphocytes % 36.2 Monocytes % 6.7 Eosinophils % 2.4 Basophils % 0.5 Nucleated Red Blood Cells % 0.0 Neutrophils # 2.2 Lymphocytes # 1.5 Monocytes # 0.3 Eosinophils # 0.1 Basophils # 0.0 Nucleated Red Blood Cells # 0.0 Sodium Level 144 Potassium Level 3.7 Chloride Level 116 H Carbon Dioxide Level 23 Anion Gap 9 Blood Urea Nitrogen 17 # Creatinine 0.93 Glucose Level 115 Calcium Level 9.1 Bedside Glucose 118 Medications Medications Current Medications Enoxaparin Sodium (Lovenox) 30 mg DAILY SC Last administered on 09/09/16 09:15 ; Admin Dose 30 MG; Start 09/09/16 at 09:00; Status Future hold Pantoprazole (Protonix Iv) 40 mg DAILY@06 IV Last administered on 09/10/16 05: 14; Admin Dose 40 MG; Start 09/09/16 at 06:00 Docusate Sodium (Colace) 100 mg BID PO Last administered on 09/09/16 20:51; Admin Dose 100 MG; Start 09/08/16 at 21:00 Acetaminophen (Tylenol Tab) 650 mg Q4H PRN PO PAIN AND OR ELEVATED TEMP; Start 09/08/16 at 21:00 Morphine Sulfate (morphine) 1 mg Q4H PRN IV pain Last administered on 09/10/16 08:08; Admin Dose 1 MG; Start 09/08/16 at 21:00 Miscellaneous Information 1 ea NOTE XX ; Start 09/08/16 at 21:30 Glucose (Glutose) 15 gm Q15M PRN PO DECREASED GLUCOSE; Start 09/08/16 at 21:30 Glucose (Glutose) 22.5 gm Q15M PRN PO DECREASED GLUCOSE; Start 09/08/16 at 21: 30 Dextrose (D50w Syringe) 25 ml Q15M PRN IV DECREASED GLUCOSE; Start 09/08/16 at 21:30 Dextrose (D50w Syringe) 50 ml Q15M PRN IV DECREASED GLUCOSE; Start 09/08/16 at 21:30 Glucagon (Glucagen) 1 mg Q15M PRN IM DECREASED GLUCOSE; Start 09/08/16 at 21:30 Glucose (Glutose) 15 gm Q15M PRN BUCCAL DECREASED GLUCOSE; Start 09/08/16 at 21 :30 Hydralazine HCl (Apresoline) 10 mg Q6H PRN IV ELEVATED BLOOD PRESSURE Last administered on 09/08/16 22:39; Admin Dose 10 MG; Start 09/08/16 at 22:30 Baclofen (Lioresal) 10 mg DAILY PO Last administered on 09/09/16 09:10; Admin Dose 10 MG; Start 09/09/16 at 09:00 Meclizine HCl (Antivert) 25 mg DAILY PRN PO DIZZINESS; Start 09/09/16 at 00:00 Potassium Chloride (Klor-Con 10) 8 meq DAILY PO Last administered on 09/09/16 09:10; Admin Dose 8 MEQ; Start 09/09/16 at 09:00 Hydroxyzine HCl (Atarax) 20 mg QHS PO Last administered on 09/09/16 20:51; Admin Dose 20 MG; Start 09/09/16 at 00:30 Zolpidem Tartrate (Ambien) 5 mg HS PRN PO INSOMNIA; Start 09/09/16 at 00:15 Acetaminophen/ Hydrocodone Bitart ([place] (5/325)) 1 tab Q4H PRN PO pain Last administered on 09/09/16 18:31; Admin Dose 1 TAB; Start 09/09/16 at 00:30 Losartan Potassium (Cozaar) 25 mg DAILY PO ; Start 09/10/16 at 09:30 Procedures Procedures PROCEDURE: US thyroid. CLINICAL INDICATION: Multiple thyroid nodules TECHNIQUE: Multiple sonographic images of the thyroid were obtained utilizing a linear array transducer with grayscale and color-flow and a Doppler imaging. The images were reviewed on a high-resolution PACS workstation. COMPARISON: No prior studies are available for comparison. FINDINGS: The thyroid gland is heterogeneous in echogenicity and slightly increased in size. The right lobe measures 4.9 x 1.6 x 2 cm. The left lobe measures 5.7 x 2.5 x 2.3 cm. The isthmus measures 13 mm. The thyroid is diffusely heterogeneous with multiple poorly defined nodules. 1 probable partially calcified nodule in the upper left thyroid was measured by the barytes grinder and measures 1.1 x 1.1 cm. Isthmus nodule measuring 1.3 x 1.5 cm was also measured. No other nodules were measured specifically. IMPRESSION: Diffuse multinodular goiter. Thyroid scan could be considered to evaluate for cold nodule. RPTAT: HLBE Jennifer Champion, Physician Date Time Electronically viewed and signed by Jennifer Champion, Physician on 09/10/2016 03 :37 LE/ CC: NILDA SHINE BOLATITO M. Sep 10, 2016 10:57
--- NOTE | 2016-09-10 11:05 | CONS ---
DATE OF ADMISSION: 09/08/2016 DATE OF CONSULTATION: 09/10/2016 HISTORY OF PRESENT ILLNESS: The patient is an 81-year-old Chadian-speaking female who was admitted on 09/08/2016 when she was brought into the emergency room complaining of feeling weak, along with the low blood pressure during the workup. She was also found to have a pleural based mass in the ri ght lung and workup is in progress. There was a questionable history ____ along with the swelling a nd tenderness involving the right lower extremity and orthopedic surgery was consulted. She is known to have multiple medical problems including hypertension, diabetes, dyslipidemia and go uty arthritis. PHYSICAL EXAMINATION: My examination revealed a somewhat overweight 81-year-old female who was not in any acute distress. There was a mild but diffuse swelling involving the right lower extremity. There was tenderness over the lateral aspect of the proximal portion of the right leg around the pro ximal shaft of the fibula and there also was a painful limit of motion involving right ankle. On pa lpation, the tenderness was most noticeable over the distal tibiofibular syndesmosis. IMAGING: X-rays of the right leg revealed a presence of undisplaced fracture involving the proximal shaft of the right fibula. There was no fracture or dislocation in the right ankle. DIAGNOSTIC IMPRESSION: Gely-Neuve fracture of the right lower extremity. Gely-Neuve fracture i s a combination of the proximal shaft fracture of the fibula combined with sprain or fracture involv ing the ankle joint. In the case of this patient, she has an undisplaced fracture involving the pro ximal shaft of the right fibula with the evidence of the right ankle sprain most significantly invol ving the distal tibiofibular syndesmosis. RECOMMENDATIONS FOR TREATMENT: Immobilization of the right lower extremity in short leg cam walker brace and this has been ordered. Dictated By: MANOLO WHITNEY/DORA Conf#: [id number] DID#: [id number]
[2016-09-10] MEDS ORDERED: LIDOCAINE 1% (MDV) 20 ML INJ ONE (12:33)
[2016-09-10] MEDS ORDERED: MIDAZOLAM 1 MG/ML 2 ML INJ ONE (12:33)
[2016-09-10] MEDS ORDERED: FENTAnyl 50 MCG/ML VIAL ONE (12:33)
[2016-09-10] MEDS ORDERED: SOD CHLORIDE 0.9% 500 ML ONE (13:54)
--- NOTE | 2016-09-10 13:57 | CONS ---
Date/Time of Note Date/Time of Note DATE: 09/10/16 TIME: 13:53 Assessment/Plan Assessment/Plan Problems: (1) Cavitary lesion of lung Status: Acute Comment: Workup in progress and believe the patient's had a percutaneous biopsy. This is quite worrisome. I doubt that this came from a thyroid primary. (2) Multiple thyroid nodules Status: Chronic Comment: He is are noted. Given the patient is euthyroid there is no immediate indication to pursue this. Nodules are sub-centimeter in size i.e. too small to be where the ray of biopsy. I would pursue the lung disease and then if come back to the thyroid at a later date if appropriate (3) Iron deficiency anemia Status: Chronic Comment: This should be repleted Qualifiers: Qualified Code: D50.9 - Iron deficiency anemia, unspecified iron deficiency anemia type (4) Vitamin B12 deficiency Status: Chronic Comment: Will replete this (5) Fracture of right fibula Status: Acute Comment: See consult from Dr. Tapia Qualifiers: Qualified Code: S82.831A - Other closed fracture of distal end of right fibula, initial encounter Consultation Date/Type/Reason Admit Date/Time September 08, 2016 at 19:35 Date of Consultation: September 09, 2016 Type of Consultation: Endocrinology Reason for Consultation Multinodular thyroid gland Referring Provider: NILDA SHINE Hx of Present Illness 81-year-old [place] female [id number]. She was admitted and was found to have a multinodular thyroid gland. Patient is unable to give meaningful history Psychological: no complaints Past Medical History Anemia Past Surgical History Past Surgical Hx: noncontributory Family History Significant Family History: no pertinent family hx Social History Alcohol Use: none Smoking Status: Never smoker Drug Use: none Exam/Review of Systems Vital Signs Vitals Vital Signs Date Time Temp Pulse Resp B/P Pulse Ox O2 Delivery O2 Flow Rate FiO2 09/10/16 09:13 57 148/74 09/10/16 07:04 97.9 19 93 09/09/16 21:20 Room Air Intake and Output 09/09/16 09/09/16 09/10/16 15:00 23:00 07:00 Intake Total 680 ml 300 ml Balance 680 ml 300 ml Exam Constitutional: alert Neck: non-tender, supple, thyromegaly (Multinodular gland) Respiratory: clear to auscultation, normal air movement Cardiovascular: nl pulses, regular rate and rhythm Results Result Diagram: 09/10/16 0629 09/10/16 0629 Results 24 hrs Laboratory Tests Test 09/09/16 17:10 09/09/16 20:11 09/09/16 22:42 09/10/16 06:29 Bedside Glucose 157 162 Erythrocyte Sedimentation Rate 33 H Absolute Reticulocyte Count 0.098 Percent Reticulocyte Count 2.7 H Uric Acid 2.5 L Iron Level 39 Total Iron Binding Capacity 390 Percent Iron Saturation 10 L Ferritin 77.1 Lactate Dehydrogenase 296 L Carcinoembryonic Antigen 1.9 Vitamin B12 Level 213 L Folate > 20.0 H Thyroid Stimulating Hormone (TSH) 2.350 White Blood Count 4.2 #L Red Blood Count 3.52 L Hemoglobin 10.2 L Hematocrit 32.5 L Mean Corpuscular Volume 92.3 Mean Corpuscular Hemoglobin 29.0 Mean Corpuscular Hemoglobin Concent 31.4 L Red Cell Distribution Width 15.9 H Platelet Count 172 Mean Platelet Volume 10.0 Neutrophils % 52.5 Lymphocytes % 36.2 Monocytes % 6.7 Eosinophils % 2.4 Basophils % 0.5 Nucleated Red Blood Cells % 0.0 Neutrophils # 2.2 Lymphocytes # 1.5 Monocytes # 0.3 Eosinophils # 0.1 Basophils # 0.0 Nucleated Red Blood Cells # 0.0 Sodium Level 144 Potassium Level 3.7 Chloride Level 116 H Carbon Dioxide Level 23 Anion Gap 9 Blood Urea Nitrogen 17 # Creatinine 0.93 Glucose Level 115 Calcium Level 9.1 Test 09/10/16 08:07 Bedside Glucose 118 Medications Medications Current Medications Enoxaparin Sodium (Lovenox) 30 mg DAILY SC Last administered on 09/09/16 09:15 ; Admin Dose 30 MG; Start 09/09/16 at 09:00; Status Future hold Pantoprazole (Protonix Iv) 40 mg DAILY@06 IV Last administered on 09/10/16 05: 14; Admin Dose 40 MG; Start 09/09/16 at 06:00 Docusate Sodium (Colace) 100 mg BID PO Last administered on 09/09/16 20:51; Admin Dose 100 MG; Start 09/08/16 at 21:00 Acetaminophen (Tylenol Tab) 650 mg Q4H PRN PO PAIN AND OR ELEVATED TEMP; Start 09/08/16 at 21:00 Morphine Sulfate (morphine) 1 mg Q4H PRN IV pain Last administered on 09/10/16 08:08; Admin Dose 1 MG; Start 09/08/16 at 21:00 Miscellaneous Information 1 ea NOTE XX ; Start 09/08/16 at 21:30 Glucose (Glutose) 15 gm Q15M PRN PO DECREASED GLUCOSE; Start 09/08/16 at 21:30 Glucose (Glutose) 22.5 gm Q15M PRN PO DECREASED GLUCOSE; Start 09/08/16 at 21: 30 Dextrose (D50w Syringe) 25 ml Q15M PRN IV DECREASED GLUCOSE; Start 09/08/16 at 21:30 Dextrose (D50w Syringe) 50 ml Q15M PRN IV DECREASED GLUCOSE; Start 09/08/16 at 21:30 Glucagon (Glucagen) 1 mg Q15M PRN IM DECREASED GLUCOSE; Start 09/08/16 at 21:30 Glucose (Glutose) 15 gm Q15M PRN BUCCAL DECREASED GLUCOSE; Start 09/08/16 at 21 :30 Hydralazine HCl (Apresoline) 10 mg Q6H PRN IV ELEVATED BLOOD PRESSURE Last administered on 09/08/16 22:39; Admin Dose 10 MG; Start 09/08/16 at 22:30 Baclofen (Lioresal) 10 mg DAILY PO Last administered on 09/09/16 09:10; Admin Dose 10 MG; Start 09/09/16 at 09:00 Meclizine HCl (Antivert) 25 mg DAILY PRN PO DIZZINESS; Start 09/09/16 at 00:00 Potassium Chloride (Klor-Con 10) 8 meq DAILY PO Last administered on 09/09/16 09:10; Admin Dose 8 MEQ; Start 09/09/16 at 09:00 Hydroxyzine HCl (Atarax) 20 mg QHS PO Last administered on 09/09/16 20:51; Admin Dose 20 MG; Start 09/09/16 at 00:30 Zolpidem Tartrate (Ambien) 5 mg HS PRN PO INSOMNIA; Start 09/09/16 at 00:15 Acetaminophen/ Hydrocodone Bitart ([place] (5/325)) 1 tab Q4H PRN PO pain Last administered on 09/09/16 18:31; Admin Dose 1 TAB; Start 09/09/16 at 00:30 Losartan Potassium (Cozaar) 25 mg DAILY PO ; Start 09/10/16 at 09:30 Cyanocobalamin (Vitamin B12 Inj) 1,000 mcg ONCE ONCE IM ; Start 09/10/16 at 14: 00; Stop 09/10/16 at 14:01; Status UNV Cholecalciferol 2000 unit 2,000 unit DAILY PO ; Start 09/11/16 at 09:00; Status UNV Ferric Sodium Gluconate Complex/ Sodium Chloride (Ferrlecit/NS) 110 ml @ 100 mls/hr Q24H IVPB ; Start 09/10/16 at 14:00; Stop 09/12/16 at 15:05; Status UNV AIMEE BABCOCK MD Sep 10, 2016 13:57
--- NOTE | 2016-09-10 14:24 | RADRPT ---
PROCEDURE: XR Chest. CLINICAL INDICATION: Status post lung biopsy TECHNIQUE: Single portable view of the chest was obtained COMPARISON: Same day FINDINGS: The heart, mediastinum and lungs are unchanged. There is a small right-sided pneumothorax status po st lung biopsy. There is a right upper lobe lung mass. RPTAT:AA IMPRESSION: Small right-sided pneumothorax status post right lung biopsy. Right upper lobe lung mass. .Thomas Casper MD, MD Date Time Electronically viewed and signed by .Thomas Casper MD, MD on 09/10/2016 14:23 .S/
[2016-09-10] MEDS: hydrALAzine 20 MG INJ IV PRN ×2 (15:04→20:49)
[2016-09-10] MEDS ORDERED: CYANOCOBALAMIN 1000 MCG INJ IM ONE (15:30)
[2016-09-10] MEDS: SOD FERRIC GLUC COMPLX 125 MG in SOD CHLORIDE 0.9% 100 ML IVPB SCH (15:30)
--- NOTE | 2016-09-10 17:07 | CONS ---
Date/Time of Note Date/Time of Note DATE: 09/10/16 TIME: 17:04 Assessment/Plan Assessment/Plan Chief Complaint/Hosp Course Syncope: secondary to SBP 70s likely worsened by standing up. Sinus bradycardia in the 50s should not cause syncope. EF preserved Hypotension: As low as 50s at home. Improvement in renal function with IVF suggests volume depletion but also had chills so ?infection as well. Now resolved and BP elevated again Bradycardia: Sinus bradycardia, no heart block. On atenolol which is not ideal at her age and with renal issues RUL lung mass: being evaluated Thyroid nodules: being evaluated Right fibula fracture: if pt needs surgery, it would be an intermediate risk surgery and she would be at mild-moderate risk. Ok to proceed if surgery is necessary as no active cardiac issues DM HTN:high now HL -start cozaar 25mg, uptitrate -workup of lung/thyroid masses -if surgery is needed for fracture, ok to proceed Problems: Consultation Date/Type/Reason Admit Date/Time September 08, 2016 at 19:35 Initial Consult Date 09/09/16 Type of Consultation: Cardiology Referring Provider: NILDA SHINE 24 HR Interval Summary Free Text/Dictation Found to have a right fibula fracture. Agreeable to lung mass biopsy Exam/Review of Systems Vital Signs Vitals Vital Signs Date Time Temp Pulse Resp B/P Pulse Ox O2 Delivery O2 Flow Rate FiO2 09/10/16 16:00 92 09/10/16 15:03 98.4 19 180/84 94 Room Air 09/10/16 13:30 2.0 Intake and Output 09/09/16 09/09/16 09/10/16 15:00 23:00 07:00 Intake Total 680 ml 300 ml Balance 680 ml 300 ml Exam Constitutional: alert, oriented Psych: no complaints Head: atraumatic, normocephalic Neck: No jvd Respiratory: clear to auscultation, No crackles/rales Cardiovascular: regular rate and rhythm, No edema Gastrointestinal: non-tender, soft Extremities: normal pulses Neurological: nl mental status, nl speech Results Result Diagram: 09/10/16 0629 09/10/16 0629 Results 24 hrs Laboratory Tests Test 09/09/16 17:10 09/09/16 20:11 09/09/16 22:42 09/10/16 06:29 Bedside Glucose 157 162 Erythrocyte Sedimentation Rate 33 H Absolute Reticulocyte Count 0.098 Percent Reticulocyte Count 2.7 H Uric Acid 2.5 L Iron Level 39 Total Iron Binding Capacity 390 Percent Iron Saturation 10 L Ferritin 77.1 Lactate Dehydrogenase 296 L Carcinoembryonic Antigen 1.9 Vitamin B12 Level 213 L Folate > 20.0 H Thyroid Stimulating Hormone (TSH) 2.350 White Blood Count 4.2 #L Red Blood Count 3.52 L Hemoglobin 10.2 L Hematocrit 32.5 L Mean Corpuscular Volume 92.3 Mean Corpuscular Hemoglobin 29.0 Mean Corpuscular Hemoglobin Concent 31.4 L Red Cell Distribution Width 15.9 H Platelet Count 172 Mean Platelet Volume 10.0 Neutrophils % 52.5 Lymphocytes % 36.2 Monocytes % 6.7 Eosinophils % 2.4 Basophils % 0.5 Nucleated Red Blood Cells % 0.0 Neutrophils # 2.2 Lymphocytes # 1.5 Monocytes # 0.3 Eosinophils # 0.1 Basophils # 0.0 Nucleated Red Blood Cells # 0.0 Sodium Level 144 Potassium Level 3.7 Chloride Level 116 H Carbon Dioxide Level 23 Anion Gap 9 Blood Urea Nitrogen 17 # Creatinine 0.93 Glucose Level 115 Calcium Level 9.1 Test 09/10/16 08:07 Bedside Glucose 118 Medications Medications Current Medications Enoxaparin Sodium (Lovenox) 30 mg DAILY SC Last administered on 09/09/16 09:15 ; Admin Dose 30 MG; Start 09/09/16 at 09:00; Status Future hold Pantoprazole (Protonix Iv) 40 mg DAILY@06 IV Last administered on 09/10/16 05: 14; Admin Dose 40 MG; Start 09/09/16 at 06:00 Docusate Sodium (Colace) 100 mg BID PO Last administered on 09/09/16 20:51; Admin Dose 100 MG; Start 09/08/16 at 21:00 Acetaminophen (Tylenol Tab) 650 mg Q4H PRN PO PAIN AND OR ELEVATED TEMP; Start 09/08/16 at 21:00 Morphine Sulfate (morphine) 1 mg Q4H PRN IV pain Last administered on 09/10/16 08:08; Admin Dose 1 MG; Start 09/08/16 at 21:00 Miscellaneous Information 1 ea NOTE XX ; Start 09/08/16 at 21:30 Glucose (Glutose) 15 gm Q15M PRN PO DECREASED GLUCOSE; Start 09/08/16 at 21:30 Glucose (Glutose) 22.5 gm Q15M PRN PO DECREASED GLUCOSE; Start 09/08/16 at 21: 30 Dextrose (D50w Syringe) 25 ml Q15M PRN IV DECREASED GLUCOSE; Start 09/08/16 at 21:30 Dextrose (D50w Syringe) 50 ml Q15M PRN IV DECREASED GLUCOSE; Start 09/08/16 at 21:30 Glucagon (Glucagen) 1 mg Q15M PRN IM DECREASED GLUCOSE; Start 09/08/16 at 21:30 Glucose (Glutose) 15 gm Q15M PRN BUCCAL DECREASED GLUCOSE; Start 09/08/16 at 21 :30 Hydralazine HCl (Apresoline) 10 mg Q6H PRN IV ELEVATED BLOOD PRESSURE Last administered on 09/10/16 15:04; Admin Dose 10 MG; Start 09/08/16 at 22:30 Baclofen (Lioresal) 10 mg DAILY PO Last administered on 09/09/16 09:10; Admin Dose 10 MG; Start 09/09/16 at 09:00 Meclizine HCl (Antivert) 25 mg DAILY PRN PO DIZZINESS; Start 09/09/16 at 00:00 Potassium Chloride (Klor-Con 10) 8 meq DAILY PO Last administered on 09/09/16 09:10; Admin Dose 8 MEQ; Start 09/09/16 at 09:00 Hydroxyzine HCl (Atarax) 20 mg QHS PO Last administered on 09/09/16 20:51; Admin Dose 20 MG; Start 09/09/16 at 00:30 Zolpidem Tartrate (Ambien) 5 mg HS PRN PO INSOMNIA; Start 09/09/16 at 00:15 Acetaminophen/ Hydrocodone Bitart ([place] (5/325)) 1 tab Q4H PRN PO pain Last administered on 09/09/16 18:31; Admin Dose 1 TAB; Start 09/09/16 at 00:30 Losartan Potassium (Cozaar) 25 mg DAILY PO ; Start 09/10/16 at 09:30 Cholecalciferol 2000 unit 2,000 unit DAILY PO ; Start 09/11/16 at 09:00 Ferric Sodium Gluconate Complex/ Sodium Chloride (Ferrlecit/NS) 110 ml @ 100 mls/hr Q24H IVPB Last administered on 09/10/16t 15:30; Admin Dose 100 MLS/HR; Start 09/10/16 at 15:30; Stop 09/12/16 at 16:35 ERIN GUTIERREZ Sep 10, 2016 17:07
[2016-09-10] MEDS ORDERED: DICLOFENAC SODIUM 1% GEL 100 GM TUBE TP SCH (17:30)
[2016-09-10] MEDS: LIDOCAINE 5% PATCH TD SCH (18:10)
[2016-09-10] MEDS: hydrOXYzine HCL 10 MG TAB PO SCH (20:48)
[2016-09-10] MEDS: HYDROCODONE/APAP (5/325) TAB PO PRN (22:00)
--- NOTE | 2016-09-10 22:52 | CONS ---
Date/Time of Note Date/Time of Note DATE: 09/10/16 TIME: 22:50 Assessment/Plan Assessment/Plan Chief Complaint/Hosp Course ASSESSMENT: An 81-year-old female who presents today with lethargy and a near- syncopal episode Right-sided pleural-based lung mass, multiple thyroid masses, possible renal mass in the setting of a history of skin cancer in the past, status post radiation, concerning for metastatic disease versus infection with incidental findings. SEVERE WT LOSS WITH DECREASED APPETITE R/O UNDERLYING NEOPLASIA POST CT-QUIDED BX LUNG MASS AWAIT PATH ANEMIA COMPLETE W-UP Near syncope with associated hypotension and bradycardia. Rule out acute coronary syndrome. High blood pressure, good control. Dyslipidemia, stable. Diabetes type 2 with fairly good control. Acute renal failure, rule out chronic kidney disease. ASPIRIN ALLERGY. Low TSH, rule out hypothyroidism. Problems: Consultation Date/Type/Reason Admit Date/Time September 08, 2016 at 19:35 Initial Consult Date 09/08/16 Type of Consultation: HEMEON Referring Provider: NILDA SHINE 24 HR Interval Summary Free Text/Dictation ALL NOTED POST LUNG BX Exam/Review of Systems Vital Signs Vitals Vital Signs Date Time Temp Pulse Resp B/P Pulse Ox O2 Delivery O2 Flow Rate FiO2 09/10/16 20:10 98.2 107 18 172/77 95 09/10/16 15:03 Room Air 09/10/16 13:30 2.0 Intake and Output 09/09/16 09/09/16 09/10/16 15:00 23:00 07:00 Intake Total 680 ml 300 ml Balance 680 ml 300 ml Exam Const: Alert, anxious, moderate distress. Head: Atraumatic Eyes: Normal Conjunctiva ENT: Normal External Ears, Nose and Mouth. Neck: Full range of motion. No JVD. Nontender. Resp: Clear to auscultation bilaterally Cardio: Bradycardic. Regular rate and rhythm, no murmurs Abd: Soft, non tender, non distended. Normal bowel sounds Skin: No petechiae or rashes Back: No midline or flank tenderness Ext: No cyanosis. 1-2+ lower extremity edema. Neur: Awake and alert. Cranial nerves II through XII are grossly intact. Motor and sensory equal bilaterally. No pronator drift. Psych: Normal Mood and Affect NO PALPABLE MASSES NO PATH [id number] Results Result Diagram: 09/10/16 0629 09/10/16 0629 Results 24 hrs Laboratory Tests Test 09/10/16 06:29 09/10/16 08:07 09/10/16 17:45 09/10/16 20:12 White Blood Count 4.2 #L Red Blood Count 3.52 L Hemoglobin 10.2 L Hematocrit 32.5 L Mean Corpuscular Volume 92.3 Mean Corpuscular Hemoglobin 29.0 Mean Corpuscular Hemoglobin Concent 31.4 L Red Cell Distribution Width 15.9 H Platelet Count 172 Mean Platelet Volume 10.0 Neutrophils % 52.5 Lymphocytes % 36.2 Monocytes % 6.7 Eosinophils % 2.4 Basophils % 0.5 Nucleated Red Blood Cells % 0.0 Neutrophils # 2.2 Lymphocytes # 1.5 Monocytes # 0.3 Eosinophils # 0.1 Basophils # 0.0 Nucleated Red Blood Cells # 0.0 Sodium Level 144 Potassium Level 3.7 Chloride Level 116 H Carbon Dioxide Level 23 Anion Gap 9 Blood Urea Nitrogen 17 # Creatinine 0.93 Glucose Level 115 Calcium Level 9.1 Bedside Glucose 118 116 132 Medications Medications Current Medications Enoxaparin Sodium (Lovenox) 30 mg DAILY SC Last administered on 09/09/16 09:15 ; Admin Dose 30 MG; Start 09/09/16 at 09:00; Status Future hold Pantoprazole (Protonix Iv) 40 mg DAILY@06 IV Last administered on 09/10/16 05: 14; Admin Dose 40 MG; Start 09/09/16 at 06:00 Docusate Sodium (Colace) 100 mg BID PO Last administered on 09/10/16 20:48; Admin Dose 100 MG; Start 09/08/16 at 21:00 Acetaminophen (Tylenol Tab) 650 mg Q4H PRN PO PAIN AND OR ELEVATED TEMP; Start 09/08/16 at 21:00 Morphine Sulfate (morphine) 1 mg Q4H PRN IV pain Last administered on 09/10/16 20:57; Admin Dose 1 MG; Start 09/08/16 at 21:00 Miscellaneous Information 1 ea NOTE XX ; Start 09/08/16 at 21:30 Glucose (Glutose) 15 gm Q15M PRN PO DECREASED GLUCOSE; Start 09/08/16 at 21:30 Glucose (Glutose) 22.5 gm Q15M PRN PO DECREASED GLUCOSE; Start 09/08/16 at 21: 30 Dextrose (D50w Syringe) 25 ml Q15M PRN IV DECREASED GLUCOSE; Start 09/08/16 at 21:30 Dextrose (D50w Syringe) 50 ml Q15M PRN IV DECREASED GLUCOSE; Start 09/08/16 at 21:30 Glucagon (Glucagen) 1 mg Q15M PRN IM DECREASED GLUCOSE; Start 09/08/16 at 21:30 Glucose (Glutose) 15 gm Q15M PRN BUCCAL DECREASED GLUCOSE; Start 09/08/16 at 21 :30 Hydralazine HCl (Apresoline) 10 mg Q6H PRN IV ELEVATED BLOOD PRESSURE Last administered on 09/10/16 20:49; Admin Dose 10 MG; Start 09/08/16 at 22:30 Baclofen (Lioresal) 10 mg DAILY PO Last administered on 09/09/16 09:10; Admin Dose 10 MG; Start 09/09/16 at 09:00 Meclizine HCl (Antivert) 25 mg DAILY PRN PO DIZZINESS; Start 09/09/16 at 00:00 Potassium Chloride (Klor-Con 10) 8 meq DAILY PO Last administered on 09/09/16 09:10; Admin Dose 8 MEQ; Start 09/09/16 at 09:00 Hydroxyzine HCl (Atarax) 20 mg QHS PO Last administered on 09/10/16 20:48; Admin Dose 20 MG; Start 09/09/16 at 00:30 Zolpidem Tartrate (Ambien) 5 mg HS PRN PO INSOMNIA; Start 09/09/16 at 00:15 Acetaminophen/ Hydrocodone Bitart ([place] (5/325)) 1 tab Q4H PRN PO pain Last administered on 09/10/16 22:00; Admin Dose 1 TAB; Start 09/09/16 at 00:30 Losartan Potassium (Cozaar) 25 mg DAILY PO ; Start 09/10/16 at 09:30 Cholecalciferol 2000 unit 2,000 unit DAILY PO ; Start 09/11/16 at 09:00 Ferric Sodium Gluconate Complex/ Sodium Chloride (Ferrlecit/NS) 110 ml @ 100 mls/hr Q24H IVPB Last administered on 09/10/16 15:30; Admin Dose 100 MLS/HR; Start 09/10/16 at 15:30; Stop 09/12/16 at 16:35 Lidocaine (Lidoderm) 1 patch Q24H TD Last administered on 09/10/16t 18:10; Admin Dose 1 PATCH; Start 09/10/16 at 18:00 HEIDY ORTIZ MD Sep 10, 2016 22:52
[2016-09-11] VITALS (13 sets, daily range): BP systolic 129–178; BP diastolic 60–86; PULSE 78–103; RESP 16–18
[2016-09-11] MEDS: ATENOLOL 50 MG TAB PO SCH ×2 (00:36→09:00)
[2016-09-11] MEDS: PANTOPRAZOLE 40 MG INJ IV SCH (05:16)
[2016-09-11 07:11] LABS: ADD SCAN DIFF NO
[2016-09-11 07:17] LABS: BASOPHIL # 0.1 10^3/ul (0.0-0.1); BASOPHILS % 0.9 % (0.0-2.0); EOSINOPHILS # 0.1 10^3/ul (0.0-0.5); EOSINOPHILS % 1.7 % (0.0-7.0); HEMOGLOBIN 10.7 g/dl (12.0-16.0); LYMPHOCYTES # 1.8 10^3/ul (0.8-2.9); LYMPHOCYTES % 30.7 % (15.0-51.0); MEAN CORPUSCULAR HEMOGLOBIN 28.9 pg (29.0-33.0); MEAN CORPUSCULAR HGB CONC 31.5 g/dl (32.0-37.0); MEAN CORPUSCULAR VOLUME 91.9 fl (82.0-101.0); MEAN PLATELET VOLUME 9.9 fl (7.4-10.4); MONOCYTE # 0.4 10^3/ul (0.3-0.9); MONOCYTES % 7.3 % (0.0-11.0); NEUTROPHIL # 3.4 10^3/ul (1.6-7.5); PLATELET COUNT 220 10^3/UL (140-415); RED CELL DISTRIBUTION WIDTH 15.9 % (11.5-14.5); WHITE BLOOD COUNT 5.8 10^3/ul (4.8-10.8)
[2016-09-11 07:47] LABS: CALCIUM 9.5 mg/dl (8.4-10.2); CREATININE 0.95 mg/dl (0.44-1.00); POTASSIUM 3.6 mmol/L (3.5-5.1)
[2016-09-11] MEDS: INSULIN ASPART [NOVOLOG] 3 ML PEN SC SCH ×4 (07:55→20:13)
--- NOTE | 2016-09-11 08:02 | RADRPT ---
PROCEDURE: XR Chest. CLINICAL INDICATION: Status post lung biopsy TECHNIQUE: An AP view of the chest was obtained. COMPARISON: Chest x-ray dated 09/10/[address] chest dated 09/08/2016 FINDINGS: Again noted is a 5 cm mass in the right upper lobe. There is a large thyroid nodule projects over t he right lung apex. There is prominence of the interstitial markings. No pleural effusion or pneu mothorax is seen. The cardiomediastinal silhouette is mildly enlarged . Calcifications are seen wi thin the aortic arch. The osseous structures demonstrate senescent changes. IMPRESSION: 1. Right upper lobe mass status post biopsy. Evaluation is limited secondary to technique. No larg e pneumothorax is seen. 2. Mild prominence of the interstitial markings, may reflect mild underlying interstitial edema or c hronic lung changes. 3. Mild cardiomegaly and aortic atherosclerosis. RPTAT: HH .Ryanne Joy MD, MD Date Time Electronically viewed and signed by .Ryanne Joy MD, MD on 09/11/2016 08:02 .Romi/
[2016-09-11] MEDS: BACLOFEN 10 MG TAB PO SCH (09:19)
[2016-09-11] MEDS: HYDROCODONE/APAP (5/325) TAB PO PRN (09:19)
[2016-09-11] MEDS: DOCUSATE SODIUM 100 MG CAP PO SCH ×2 (09:19→20:08)
[2016-09-11] MEDS: LOSARTAN 25 MG TAB PO SCH (09:20)
[2016-09-11] MEDS: POTASSIUM CHLORIDE (SR) 10 MEQ TAB PO SCH (09:20)
[2016-09-11] MEDS: CHOLECALCIFEROL 2,000 UNIT CAP PO SCH (09:21)
--- NOTE | 2016-09-11 09:33 | RADRPT ---
PROCEDURE: CT-guided lung biopsy CLINICAL INDICATION: Lung mass TECHNIQUE: Informed consent was obtained from the patient following careful explanation of the risks and benefi ts of the procedure. Versed and Fentanyl were administered by the nurse who monitored the patient. The patient was placed supine on the CT table and multiple axial images were obtained through the est. A site in the patient's right chest was selected and marked. The area was prepped and draped i n the usual sterile fashion. 1% lidocaine with lidocaine was utilized for local anesthesia. Under direct CT guidance, a 19-gauge needle was advanced towards the lesion. Utilizing a 20-gauge coaxial biopsy needle, three core biopsy specimens were obtained. The specimens were submitted to a pathologist who deemed then to be adequate. Postprocedure CT demonstrates no pneumothorax. The needle was removed and a sterile dressing was applied. The patient tolerated the procedure well. RPTAT: AA COMPARISON: CT chest from 09/08/2016 FINDINGS: 7 cm right lung mass. IMPRESSION: Successful CT-guided core biopsy of a right lung mass . Physician Samuel Date Time Electronically viewed and signed by Physician Samuel on 09/11/2016 09:33 /
[2016-09-11] MEDS: ENOXAPARIN 30 MG/0.3 ML SYG SC SCH (09:55)
[2016-09-11] MEDS ORDERED: MAGNESIUM SULFATE 2 GM/50 ML 50 ML IVPB ONE (10:30)
[2016-09-11] MEDS ORDERED: AMLODIPINE 10 MG TAB PO SCH (10:30)
[2016-09-11] MEDS ORDERED: POTASSIUM CHLORIDE 20 MEQ POWDER FOR ORAL SOLN PO ONE (10:30)
[2016-09-11] MEDS ORDERED: LOSARTAN 25 MG TAB PO ONE (10:30)
--- NOTE | 2016-09-11 10:51 | CONS ---
Date/Time of Note Date/Time of Note DATE: 09/11/16 TIME: 10:49 Assessment/Plan Assessment/Plan Chief Complaint/Hosp Course Syncope: secondary to SBP 70s likely worsened by standing up. Sinus bradycardia in the 50s should not cause syncope. EF preserved Hypotension: As low as 50s at home. Improvement in renal function with IVF suggests volume depletion but also had chills so ?infection as well. Now resolved and BP elevated again Bradycardia: Sinus bradycardia, no heart block. On atenolol which is not ideal at her age and with renal issues RUL lung mass: s/p biopsy, path pending Thyroid nodules: being evaluated Right fibula fracture: s/p cast DM HTN:elevated all day yesterday HL -increase to cozaar 50mg -start amlodipine 5mg -ok to d/c home from my perspective Problems: Consultation Date/Type/Reason Admit Date/Time September 08, 2016 at 19:35 Initial Consult Date 09/09/16 Type of Consultation: Cardiology Referring Provider: NILDA SHINE 24 HR Interval Summary Free Text/Dictation BP as high as 200 yesterday, required 3 doses of hydralazine IV. S/p lung biopsy. Feels well. Family would like to take her home. Exam/Review of Systems Vital Signs Vitals Vital Signs Date Time Temp Pulse Resp B/P Pulse Ox O2 Delivery O2 Flow Rate FiO2 09/11/16 08:00 79 09/11/16 07:38 98.3 18 133/60 94 09/10/16 15:03 Room Air 09/10/16 13:30 2.0 Intake and Output 09/10/16 09/10/16 09/11/16 15:00 23:00 07:00 Intake Total 150 ml 200 ml 120 ml Output Total 400 ml Balance -250 ml 200 ml 120 ml Exam Constitutional: alert, oriented Psych: no complaints Head: normocephalic Neck: No jvd Respiratory: clear to auscultation, No crackles/rales Cardiovascular: regular rate and rhythm, No edema Gastrointestinal: non-tender, soft Neurological: nl mental status, nl speech Results Result Diagram: 09/11/16 0548 09/11/16 0548 Results 24 hrs Laboratory Tests Test 09/10/16 17:45 09/10/16 20:12 09/11/16 05:48 09/11/16 08:02 Bedside Glucose 116 132 124 White Blood Count 5.8 # Red Blood Count 3.70 L Hemoglobin 10.7 L Hematocrit 34.0 L Mean Corpuscular Volume 91.9 Mean Corpuscular Hemoglobin 28.9 L Mean Corpuscular Hemoglobin Concent 31.5 L Red Cell Distribution Width 15.9 H Platelet Count 220 # Mean Platelet Volume 9.9 Neutrophils % 58.0 Lymphocytes % 30.7 Monocytes % 7.3 Eosinophils % 1.7 Basophils % 0.9 Nucleated Red Blood Cells % 0.0 Neutrophils # 3.4 Lymphocytes # 1.8 Monocytes # 0.4 Eosinophils # 0.1 Basophils # 0.1 Nucleated Red Blood Cells # 0.0 Sodium Level 144 Potassium Level 3.6 Chloride Level 109 Carbon Dioxide Level 22 Anion Gap 17 #H Blood Urea Nitrogen 17 Creatinine 0.95 Glucose Level 115 Calcium Level 9.5 Magnesium Level 1.7 Medications Medications Current Medications Enoxaparin Sodium (Lovenox) 30 mg DAILY SC Last administered on 09/11/16 09:55 ; Admin Dose 30 MG; Start 09/09/16 at 09:00; Status Future hold Pantoprazole (Protonix Iv) 40 mg DAILY@06 IV Last administered on 09/11/16 05: 16; Admin Dose 40 MG; Start 09/09/16 at 06:00 Docusate Sodium (Colace) 100 mg BID PO Last administered on 09/11/16 09:19; Admin Dose 100 MG; Start 09/08/16 at 21:00 Acetaminophen (Tylenol Tab) 650 mg Q4H PRN PO PAIN AND OR ELEVATED TEMP; Start 09/08/16 at 21:00 Morphine Sulfate (morphine) 1 mg Q4H PRN IV pain Last administered on 09/10/16 20:57; Admin Dose 1 MG; Start 09/08/16 at 21:00 Miscellaneous Information 1 ea NOTE XX ; Start 09/08/16 at 21:30 Glucose (Glutose) 15 gm Q15M PRN PO DECREASED GLUCOSE; Start 09/08/16 at 21:30 Glucose (Glutose) 22.5 gm Q15M PRN PO DECREASED GLUCOSE; Start 09/08/16 at 21: 30 Dextrose (D50w Syringe) 25 ml Q15M PRN IV DECREASED GLUCOSE; Start 09/08/16 at 21:30 Dextrose (D50w Syringe) 50 ml Q15M PRN IV DECREASED GLUCOSE; Start 09/08/16 at 21:30 Glucagon (Glucagen) 1 mg Q15M PRN IM DECREASED GLUCOSE; Start 09/08/16 at 21:30 Glucose (Glutose) 15 gm Q15M PRN BUCCAL DECREASED GLUCOSE; Start 09/08/16 at 21 :30 Hydralazine HCl (Apresoline) 10 mg Q6H PRN IV ELEVATED BLOOD PRESSURE Last administered on 09/10/16 20:49; Admin Dose 10 MG; Start 09/08/16 at 22:30 Baclofen (Lioresal) 10 mg DAILY PO Last administered on 09/11/16 09:19; Admin Dose 10 MG; Start 09/09/16 at 09:00 Meclizine HCl (Antivert) 25 mg DAILY PRN PO DIZZINESS; Start 09/09/16 at 00:00 Potassium Chloride (Klor-Con 10) 8 meq DAILY PO Last administered on 09/11/16 09:20; Admin Dose 8 MEQ; Start 09/09/16 at 09:00 Hydroxyzine HCl (Atarax) 20 mg QHS PO Last administered on 09/10/16 20:48; Admin Dose 20 MG; Start 09/09/16 at 00:30 Zolpidem Tartrate (Ambien) 5 mg HS PRN PO INSOMNIA; Start 09/09/16 at 00:15 Acetaminophen/ Hydrocodone Bitart ([place] (5/325)) 1 tab Q4H PRN PO pain Last administered on 09/11/16 09:19; Admin Dose 1 TAB; Start 09/09/16 at 00:30 Cholecalciferol 2000 unit 2,000 unit DAILY PO Last administered on 09/11/16 09: 21; Admin Dose 2,000 UNIT; Start 09/11/16 at 09:00 Ferric Sodium Gluconate Complex/ Sodium Chloride (Ferrlecit/NS) 110 ml @ 100 mls/hr Q24H IVPB Last administered on 09/10/16 15:30; Admin Dose 100 MLS/HR; Start 09/10/16 at 15:30; Stop 09/12/16 at 16:35 Lidocaine (Lidoderm) 1 patch Q24H TD Last administered on 09/10/16 18:10; Admin Dose 1 PATCH; Start 09/10/16 at 18:00 Losartan Potassium (Cozaar) 50 mg DAILY PO ; Start 09/12/16 at 09:00 Amlodipine Besylate 10 mg 10 mg DAILY PO ; Start 09/11/16 at 10:30 Magnesium Sulfate (Magnesium Sulfate 2 Gm/50 ml) 50 ml @ 25 mls/hr ONCE ONCE IVPB ; Start 09/11/16 at 10:30; Stop 09/11/16 at 12:29 ERIN GUTIERREZ Sep 11, 2016 10:51
[2016-09-11] MEDS: AMLODIPINE 5 MG TAB PO SCH (11:48)
--- NOTE | 2016-09-11 11:59 | RADRPT ---
PROCEDURE: XR Chest 1 View. CLINICAL INDICATION: Shortness of breath, pneumothorax TECHNIQUE: AP view of the chest was obtained. COMPARISON: September 10, 2016 FINDINGS: Heart is large. Right upper lobe lung mass is unchanged. Small pneumothorax over the right upper lo be has mildly increased. Interstitial prominence in both lungs appears stable. Osseous structures a re intact. IMPRESSION: Cardiomegaly. Mild interval increase in small pneumothorax over the right upper lobe. Stable right upper lobe lung mass. Stable mild interstitial prominence in both lungs. Interstitial prominence may be chronic. Call report: A call report of the findings was made to the patient's nurse, Nila, at 11:56 AM on 09/11/2016 . RPTAT: AA .Mehran Al MD, Date Time Electronically viewed and signed by .Mehran Al MD, on 09/11/2016 11:59 .P/
--- NOTE | 2016-09-11 12:17 | CONS ---
Date/Time of Note Date/Time of Note DATE: 09/11/16 TIME: 12:15 Assessment/Plan Assessment/Plan Chief Complaint/Hosp Course Consultation note dictated [id number]. Findings discussed with Dr. SHINE. Problems: Additional Assessment/Plan Assessment recommendations; 1. Patient admitted for generalized weakness with a history of fall resulting in right fibular fracture. Incidental discovery made of right upper lobe lung mass patient status post CT biopsy yesterday with findings showing well- differentiated adenocarcinoma. 2. History of hypertension, diabetes and gout. Continue current treatment. Patient will need oncology evaluation. Patient likely is a candidate for radiation treatment only. Consultation Date/Type/Reason Admit Date/Time September 08, 2016 at 19:35 Initial Consult Date 09/09/16 Type of Consultation: Pulmonary Referring Provider: NILDA SHINE 24 HR Interval Summary Free Text/Dictation Patient condition stable. Remains completely awake alert. Denies any shortness of breath, chest pain. Any cough or hemoptysis. General exam; elderly woman, awake alert currently in no distress. Exam/Review of Systems Vital Signs Vitals Vital Signs Date Time Temp Pulse Resp B/P Pulse Ox O2 Delivery O2 Flow Rate FiO2 09/11/16 11:56 98.4 83 18 171/84 97 09/10/16 15:03 Room Air 09/10/16 13:30 2.0 Intake and Output 09/10/16 09/10/16 09/11/16 15:00 23:00 07:00 Intake Total 150 ml 200 ml 120 ml Output Total 400 ml Balance -250 ml 200 ml 120 ml Exam HEENT examination; supple neck, no JVD. No lymphadenopathy. Midline trachea. No thyromegaly. Patient has fair dentition. Nipples are midsize and reactive to light. Chest examination; diminished but clear vessel bilaterally. S1-S2 audible, no murmurs. Regular rhythm. There is a small dressing applied over the right upper lobe biopsy site from yesterday. Abdomen examination; soft, nontender. No organomegaly. Bowel sounds audible. Extremity examination; no edema. [employer] examination; no focal deficit. Results Result Diagram: 09/11/16 0548 09/11/16 0548 Results 24 hrs Laboratory Tests Test 09/10/16 17:45 09/10/16 20:12 09/11/16 05:48 09/11/16 08:02 Bedside Glucose 116 132 124 White Blood Count 5.8 # Red Blood Count 3.70 L Hemoglobin 10.7 L Hematocrit 34.0 L Mean Corpuscular Volume 91.9 Mean Corpuscular Hemoglobin 28.9 L Mean Corpuscular Hemoglobin Concent 31.5 L Red Cell Distribution Width 15.9 H Platelet Count 220 # Mean Platelet Volume 9.9 Neutrophils % 58.0 Lymphocytes % 30.7 Monocytes % 7.3 Eosinophils % 1.7 Basophils % 0.9 Nucleated Red Blood Cells % 0.0 Neutrophils # 3.4 Lymphocytes # 1.8 Monocytes # 0.4 Eosinophils # 0.1 Basophils # 0.1 Nucleated Red Blood Cells # 0.0 Sodium Level 144 Potassium Level 3.6 Chloride Level 109 Carbon Dioxide Level 22 Anion Gap 17 #H Blood Urea Nitrogen 17 Creatinine 0.95 Glucose Level 115 Calcium Level 9.5 Magnesium Level 1.7 Test 09/11/16 11:36 Bedside Glucose 132 Medications Medications Current Medications Enoxaparin Sodium (Lovenox) 30 mg DAILY SC Last administered on 09/11/16 09:55 ; Admin Dose 30 MG; Start 09/09/16 at 09:00; Status Future hold Pantoprazole (Protonix Iv) 40 mg DAILY@06 IV Last administered on 09/11/16 05: 16; Admin Dose 40 MG; Start 09/09/16 at 06:00 Docusate Sodium (Colace) 100 mg BID PO Last administered on 09/11/16 09:19; Admin Dose 100 MG; Start 09/08/16 at 21:00 Acetaminophen (Tylenol Tab) 650 mg Q4H PRN PO PAIN AND OR ELEVATED TEMP; Start 09/08/16 at 21:00 Morphine Sulfate (morphine) 1 mg Q4H PRN IV pain Last administered on 09/10/16 20:57; Admin Dose 1 MG; Start 09/08/16 at 21:00 Miscellaneous Information 1 ea NOTE XX ; Start 09/08/16 at 21:30 Glucose (Glutose) 15 gm Q15M PRN PO DECREASED GLUCOSE; Start 09/08/16 at 21:30 Glucose (Glutose) 22.5 gm Q15M PRN PO DECREASED GLUCOSE; Start 09/08/16 at 21: 30 Dextrose (D50w Syringe) 25 ml Q15M PRN IV DECREASED GLUCOSE; Start 09/08/16 at 21:30 Dextrose (D50w Syringe) 50 ml Q15M PRN IV DECREASED GLUCOSE; Start 09/08/16 at 21:30 Glucagon (Glucagen) 1 mg Q15M PRN IM DECREASED GLUCOSE; Start 09/08/16 at 21:30 Glucose (Glutose) 15 gm Q15M PRN BUCCAL DECREASED GLUCOSE; Start 09/08/16 at 21 :30 Hydralazine HCl (Apresoline) 10 mg Q6H PRN IV ELEVATED BLOOD PRESSURE Last administered on 09/10/16 20:49; Admin Dose 10 MG; Start 09/08/16 at 22:30 Baclofen (Lioresal) 10 mg DAILY PO Last administered on 09/11/16 09:19; Admin Dose 10 MG; Start 09/09/16 at 09:00 Meclizine HCl (Antivert) 25 mg DAILY PRN PO DIZZINESS; Start 09/09/16 at 00:00 Potassium Chloride (Klor-Con 10) 8 meq DAILY PO Last administered on 09/11/16 09:20; Admin Dose 8 MEQ; Start 09/09/16 at 09:00 Hydroxyzine HCl (Atarax) 20 mg QHS PO Last administered on 09/10/16 20:48; Admin Dose 20 MG; Start 09/09/16 at 00:30 Zolpidem Tartrate (Ambien) 5 mg HS PRN PO INSOMNIA; Start 09/09/16 at 00:15 Acetaminophen/ Hydrocodone Bitart ([place] (5/325)) 1 tab Q4H PRN PO pain Last administered on 09/11/16 09:19; Admin Dose 1 TAB; Start 09/09/16 at 00:30 Cholecalciferol 2000 unit 2,000 unit DAILY PO Last administered on 09/11/16 09: 21; Admin Dose 2,000 UNIT; Start 09/11/16 at 09:00 Ferric Sodium Gluconate Complex/ Sodium Chloride (Ferrlecit/NS) 110 ml @ 100 mls/hr Q24H IVPB Last administered on 09/10/16 15:30; Admin Dose 100 MLS/HR; Start 09/10/16 at 15:30; Stop 09/12/16 at 16:35 Lidocaine (Lidoderm) 1 patch Q24H TD Last administered on 09/10/16 18:10; Admin Dose 1 PATCH; Start 09/10/16 at 18:00 Losartan Potassium 50 mg 50 mg DAILY PO ; Start 09/12/16 at 09:00 Magnesium Sulfate (Magnesium Sulfate 2 Gm/50 ml) 50 ml @ 25 mls/hr ONCE ONCE IVPB Last administered on 09/11/16 11:37; Admin Dose 25 MLS/HR; Start 09/11/16 at 10:30; Stop 09/11/16 at 12:29 Amlodipine Besylate (Norvasc) 5 mg DAILY PO Last administered on 09/11/16 11:48 ; Admin Dose 5 MG; Start 09/11/16 at 11:00 MARJORIE HALE Sep 11, 2016 12:17
[2016-09-11] MEDS ORDERED: OLME40TA14 PO (12:38)
[2016-09-11] MEDS ORDERED: CHOL20003 PO (12:38)
--- NOTE | 2016-09-11 12:40 | PDOCDIS ---
Discharge Instructions DIAGNOSIS Discharge Diagnosis: Near syncopy CONDITION Patient Condition: Stable HOME CARE INSTRUCTIONS: Special Diet: 1800 BRAULIO ACTIVITY: Activity Restrictions: Slowly Increase Activity Rest between Activity Activity Restrictions Comment: fall precautions FOLLOW UP/APPOINTMENTS Appointments Follow-up with your primary care doctor within the next week to discuss the following issues: 1. Blood pressure control 2. Fibula fracture right leg 3. Newly found lung mass. . OTHER ORDERS: Other Orders: Call Dr. Coello's office for follow-up. She can help with your cancer or blood issues. Name, Degree: Marta Coello MD Specialty: Oncology, Hematology Comments: Office Address: [address] [place] [address] Office Office NILDA SHINE Sep 11, 2016 12:40
--- NOTE | 2016-09-11 12:52 | PN ---
Date/Time of Note Date/Time of Note DATE: 09/11/16 TIME: 12:40 Assessment/Plan VTE Prophylaxis VTE Prophylaxis Intervention: LMWH Lines/Catheters IV [facility] Peripheral IV Urinary Cath still in place: No Assessment/Plan Assessment/Plan 81-year-old female managed for the followin. Near syncope with associated hypotension and bradycardia. * Patient has been off beta-dalia therapy with improvement in blood pressure and heart rate. * Cardiology input appreciated/recommendations noted. * Family reports that patient might have been mixing herbs with prescribed medication which could explain symptoms. Patient and family advised not to do this. 2. Right-sided pleural-based lung mass: * CT of the abdomen and pelvis and brain showed no other masses * Family also reports that patient has been having recurrent cough occasionally productive over the last few months. * Patient is status post CT-guided biopsy September 10, 2016, and I was just notified that preliminary pathology results are consistent with adenocarcinoma of the lung. 3. Multiple thyroid masses * Initial thyroid panel screen was abnormal, but repeat is completely normal. * Endocrinology consultation appreciated, no intervention for now 4. Possible renal mass on CT: * Found to be a small incidental cyst on ultrasound. No further interventions required. 5. History of skin cancer in the past, status post radiation many years ago. Patient was told she was cancer free. 6. High blood pressure: * Patient is still having fluctuating control, regimen has been adjusted cardiology has cleared for discharge 7. Dyslipidemia: * Repeat screen continues to show suboptimal control /will follow goals of therapy Per cardiology 8. Diabetes type 2 with fairly good control. 9. Acute renal failure, rule out chronic kidney disease: improving 10. ASPIRIN ALLERGY. 11. Acute minimally angulated proximal fibular shaft fracture causing right lower extremity pain * Status post foot brace in short leg, walker, for at least 6 months. Outpatient follow-up with orthopedics. 12. Background osteopenia: Start calcium supplementation, consider biphosphonate therapy 13. Rhabdomyolysis mild: Improved Prophylaxis with Lovenox and PPI. Subjective 24 Hr Interval Summary Free Text/Dictation Patient seen and evaluated. Feels much better. Her son is anxious for her to be discharged. Exam/Review of Systems Vital Signs Vitals Vital Signs Date Time Temp Pulse Resp B/P Pulse Ox O2 Delivery O2 Flow Rate FiO2 09/11/16 12:00 81 09/11/16 11:56 98.4 18 171/84 97 09/10/16 15:03 Room Air 09/10/16 13:30 2.0 Intake and Output 09/10/16 09/10/16 09/11/16 15:00 23:00 07:00 Intake Total 150 ml 200 ml 120 ml Output Total 400 ml Balance -250 ml 200 ml 120 ml Exam GENERAL: Obese female, less lethargic, who is alert, oriented x3, able to answer questions. HEENT: Head was normocephalic without evidence of trauma. Pupils equal and reactive. No scleral jaundice. No conjunctival pallor. Mucous membranes are slightly dry. Posterior pharynx is clear of erythema and exudate. NECK: Supple without lymphadenopathy, but she did have some hyperactivity on the base of the neck on the right. She might have some thyromegaly; it was difficult to assess. CHEST: Clear to auscultation with good air entry on both sides. CARDIOVASCULAR: S1 and S2 with no added sounds or murmurs. Mild bradycardia. ABDOMEN: Obese, soft, nontender, nondistended with normoactive bowel sounds. No surgical scars. LOWER EXTREMITIES: The patient has nonpitting bilateral edema about 2+. The patient is edematous all the way from her feet to just below her knees. Again, per family, this is chronic. NEUROLOGIC: She had no focal deficits other than just lethargy. SKIN: Devoid of rash or jaundice. PSYCHIATRIC: calm Results Result Diagram: 09/11/16 0548 09/11/16 0548 Results 24 hrs Laboratory Tests Test 09/10/16 17:45 09/10/16 20:12 09/11/16 05:48 09/11/16 08:02 Bedside Glucose 116 132 124 White Blood Count 5.8 # Red Blood Count 3.70 L Hemoglobin 10.7 L Hematocrit 34.0 L Mean Corpuscular Volume 91.9 Mean Corpuscular Hemoglobin 28.9 L Mean Corpuscular Hemoglobin Concent 31.5 L Red Cell Distribution Width 15.9 H Platelet Count 220 # Mean Platelet Volume 9.9 Neutrophils % 58.0 Lymphocytes % 30.7 Monocytes % 7.3 Eosinophils % 1.7 Basophils % 0.9 Nucleated Red Blood Cells % 0.0 Neutrophils # 3.4 Lymphocytes # 1.8 Monocytes # 0.4 Eosinophils # 0.1 Basophils # 0.1 Nucleated Red Blood Cells # 0.0 Sodium Level 144 Potassium Level 3.6 Chloride Level 109 Carbon Dioxide Level 22 Anion Gap 17 #H Blood Urea Nitrogen 17 Creatinine 0.95 Glucose Level 115 Calcium Level 9.5 Magnesium Level 1.7 Test 09/11/16 11:36 Bedside Glucose 132 Medications Medications Current Medications Enoxaparin Sodium (Lovenox) 30 mg DAILY SC Last administered on 09/11/16 09:55 ; Admin Dose 30 MG; Start 09/09/16 at 09:00; Status Future hold Pantoprazole (Protonix Iv) 40 mg DAILY@06 IV Last administered on 09/11/16 05: 16; Admin Dose 40 MG; Start 09/09/16 at 06:00 Docusate Sodium (Colace) 100 mg BID PO Last administered on 09/11/16 09:19; Admin Dose 100 MG; Start 09/08/16 at 21:00 Acetaminophen (Tylenol Tab) 650 mg Q4H PRN PO PAIN AND OR ELEVATED TEMP; Start 09/08/16 at 21:00 Morphine Sulfate (morphine) 1 mg Q4H PRN IV pain Last administered on 09/10/16 20:57; Admin Dose 1 MG; Start 09/08/16 at 21:00 Miscellaneous Information 1 ea NOTE XX ; Start 09/08/16 at 21:30 Glucose (Glutose) 15 gm Q15M PRN PO DECREASED GLUCOSE; Start 09/08/16 at 21:30 Glucose (Glutose) 22.5 gm Q15M PRN PO DECREASED GLUCOSE; Start 09/08/16 at 21: 30 Dextrose (D50w Syringe) 25 ml Q15M PRN IV DECREASED GLUCOSE; Start 09/08/16 at 21:30 Dextrose (D50w Syringe) 50 ml Q15M PRN IV DECREASED GLUCOSE; Start 09/08/16 at 21:30 Glucagon (Glucagen) 1 mg Q15M PRN IM DECREASED GLUCOSE; Start 09/08/16 at 21:30 Glucose (Glutose) 15 gm Q15M PRN BUCCAL DECREASED GLUCOSE; Start 09/08/16 at 21 :30 Hydralazine HCl (Apresoline) 10 mg Q6H PRN IV ELEVATED BLOOD PRESSURE Last administered on 09/10/16 20:49; Admin Dose 10 MG; Start 09/08/16 at 22:30 Baclofen (Lioresal) 10 mg DAILY PO Last administered on 09/11/16 09:19; Admin Dose 10 MG; Start 09/09/16 at 09:00 Meclizine HCl (Antivert) 25 mg DAILY PRN PO DIZZINESS; Start 09/09/16 at 00:00 Potassium Chloride (Klor-Con 10) 8 meq DAILY PO Last administered on 09/11/16 09:20; Admin Dose 8 MEQ; Start 09/09/16 at 09:00 Hydroxyzine HCl (Atarax) 20 mg QHS PO Last administered on 09/10/16 20:48; Admin Dose 20 MG; Start 09/09/16 at 00:30 Zolpidem Tartrate (Ambien) 5 mg HS PRN PO INSOMNIA; Start 09/09/16 at 00:15 Acetaminophen/ Hydrocodone Bitart ([place] (5/325)) 1 tab Q4H PRN PO pain Last administered on 09/11/16 09:19; Admin Dose 1 TAB; Start 09/09/16 at 00:30 Cholecalciferol 2000 unit 2,000 unit DAILY PO Last administered on 09/11/16 09: 21; Admin Dose 2,000 UNIT; Start 09/11/16 at 09:00 Ferric Sodium Gluconate Complex/ Sodium Chloride (Ferrlecit/NS) 110 ml @ 100 mls/hr Q24H IVPB Last administered on 09/10/16 15:30; Admin Dose 100 MLS/HR; Start 09/10/16 at 15:30; Stop 09/12/16 at 16:35 Lidocaine (Lidoderm) 1 patch Q24H TD Last administered on 09/10/16 18:10; Admin Dose 1 PATCH; Start 09/10/16 at 18:00 Losartan Potassium (Cozaar) 50 mg DAILY PO ; Start 09/12/16 at 09:00 Amlodipine Besylate (Norvasc) 5 mg DAILY PO Last administered on 09/11/16 11:48 ; Admin Dose 5 MG; Start 09/11/16 at 11:00 NILDA SHINE Sep 11, 2016 12:51
[2016-09-11] MEDS: CALCIUM/VITAMIN D (500/200) TAB PO SCH ×2 (14:12→20:08)
--- NOTE | 2016-09-11 16:09 | PN ---
DATE: 09/11/2016 Cam walker brace is on. The patient has been up and around with the brace on. She could be dischar ged from ____point. Further followup in 2 weeks as an outpatient with repeated x-rays. Dictated By: MANOLO WHITNEY/DORA Conf#: [id number] DID#: [id number]
[2016-09-11] MEDS: SOD FERRIC GLUC COMPLX 125 MG in SOD CHLORIDE 0.9% 100 ML IVPB SCH (16:30)
[2016-09-11] MEDS: LIDOCAINE 5% PATCH TD SCH (17:37)
[2016-09-11] MEDS: hydrOXYzine HCL 10 MG TAB PO SCH (20:08)
--- NOTE | 2016-09-11 23:06 | CONS ---
Date/Time of Note Date/Time of Note DATE: 09/11/16 TIME: 08:05 VK LE Assessment/Plan Assessment/Plan Chief Complaint/Hosp Course ASSESSMENT: An 81-year-old female who presents today with lethargy and a near- syncopal episode Right-sided pleural-based lung mass, multiple thyroid masses, possible renal mass in the setting of a history of skin cancer in the past, status post radiation, concerning for metastatic disease versus infection with incidental findings. SEVERE WT LOSS WITH DECREASED APPETITE R/O UNDERLYING NEOPLASIA POST CT-QUIDED BX LUNG MASS AWAIT PATH OK TO DC WITH OUTPT F-UP ANEMIA ACD Near syncope with associated hypotension and bradycardia. Rule out acute coronary syndrome. High blood pressure, good control. Dyslipidemia, stable. Diabetes type 2 with fairly good control. Acute renal failure, rule out chronic kidney disease. ASPIRIN ALLERGY. Low TSH, rule out hypothyroidism. Problems: Consultation Date/Type/Reason Admit Date/Time September 08, 2016 at 19:35 Initial Consult Date 09/08/16 [facility] Referring Provider: NILDA SHINE 24 HR Interval Summary Free Text/Dictation all noted d/w son path -P Exam/Review of Systems Vital Signs Vitals Vital Signs Date Time Temp Pulse Resp B/P Pulse Ox O2 Delivery O2 Flow Rate FiO2 09/11/16 20:20 81 09/11/16 20:09 98.1 16 149/74 94 09/10/16 15:03 Room Air 09/10/16 13:30 2.0 Intake and Output 09/10/16 09/10/16 09/11/16 15:00 23:00 07:00 Intake Total 150 ml 200 ml 120 ml Output Total 400 ml Balance -250 ml 200 ml 120 ml Exam HEENT examination; supple neck, no JVD. No lymphadenopathy. Midline trachea. No thyromegaly. Patient has fair dentition. Nipples are midsize and reactive to light. Chest examination; diminished but clear vessel bilaterally. S1-S2 audible, no murmurs. Regular rhythm. There is a small dressing applied over the right upper lobe biopsy site from yesterday. Abdomen examination; soft, nontender. No organomegaly. Bowel sounds audible. Extremity examination; no edema. GUARD IMMIGRATION examination; no focal deficit. Results Result Diagram: 09/11/1654709/11/16547 Results 24 hrs Laboratory Tests Test 09/11/16 05:48 09/11/16 08:02 09/11/16 11:36 09/11/16 17:36 White Blood Count 5.8 # Red Blood Count 3.70 L Hemoglobin 10.7 L Hematocrit 34.0 L Mean Corpuscular Volume 91.9 Mean Corpuscular Hemoglobin 28.9 L Mean Corpuscular Hemoglobin Concent 31.5 L Red Cell Distribution Width 15.9 H Platelet Count 220 # Mean Platelet Volume 9.9 Neutrophils % 58.0 Lymphocytes % 30.7 Monocytes % 7.3 Eosinophils % 1.7 Basophils % 0.9 Nucleated Red Blood Cells % 0.0 Neutrophils # 3.4 Lymphocytes # 1.8 Monocytes # 0.4 Eosinophils # 0.1 Basophils # 0.1 Nucleated Red Blood Cells # 0.0 Sodium Level 144 Potassium Level 3.6 Chloride Level 109 Carbon Dioxide Level 22 Anion Gap 17 #H Blood Urea Nitrogen 17 Creatinine 0.95 Glucose Level 115 Calcium Level 9.5 Magnesium Level 1.7 Bedside Glucose 124 132 108 Test 09/11/16 20:10 Bedside Glucose 144 Medications Medications Current Medications Enoxaparin Sodium (Lovenox) 30 mg DAILY SC Last administered on 09/11/16 09:55 ; Admin Dose 30 MG; Start 09/09/16 at 09:00; Status Future hold Pantoprazole (Protonix Iv) 40 mg DAILY@06 IV Last administered on 09/11/16 05: 16; Admin Dose 40 MG; Start 09/09/16 at 06:00 Docusate Sodium (Colace) 100 mg BID PO Last administered on 09/11/16 20:08; Admin Dose 100 MG; Start 09/08/16 at 21:00 Acetaminophen (Tylenol Tab) 650 mg Q4H PRN PO PAIN AND OR ELEVATED TEMP; Start 09/08/16 at 21:00 Morphine Sulfate (morphine) 1 mg Q4H PRN IV pain Last administered on 09/10/16 20:57; Admin Dose 1 MG; Start 09/08/16 at 21:00 Miscellaneous Information 1 ea NOTE XX ; Start 09/08/16 at 21:30 Glucose (Glutose) 15 gm Q15M PRN PO DECREASED GLUCOSE; Start 09/08/16 at 21:30 Glucose (Glutose) 22.5 gm Q15M PRN PO DECREASED GLUCOSE; Start 09/08/16 at 21: 30 Dextrose (D50w Syringe) 25 ml Q15M PRN IV DECREASED GLUCOSE; Start 09/08/16 at 21:30 Dextrose (D50w Syringe) 50 ml Q15M PRN IV DECREASED GLUCOSE; Start 09/08/16 at 21:30 Glucagon (Glucagen) 1 mg Q15M PRN IM DECREASED GLUCOSE; Start 09/08/16 at 21:30 Glucose (Glutose) 15 gm Q15M PRN BUCCAL DECREASED GLUCOSE; Start 09/08/16 at 21 :30 Hydralazine HCl (Apresoline) 10 mg Q6H PRN IV ELEVATED BLOOD PRESSURE Last administered on 09/10/16 20:49; Admin Dose 10 MG; Start 09/08/16 at 22:30 Baclofen (Lioresal) 10 mg DAILY PO Last administered on 09/11/16 09:19; Admin Dose 10 MG; Start 09/09/16 at 09:00 Meclizine HCl (Antivert) 25 mg DAILY PRN PO DIZZINESS; Start 09/09/16 at 00:00 Potassium Chloride (Klor-Con 10) 8 meq DAILY PO Last administered on 09/11/16 09:20; Admin Dose 8 MEQ; Start 09/09/16 at 09:00 Hydroxyzine HCl (Atarax) 20 mg QHS PO Last administered on 09/11/16 20:08; Admin Dose 20 MG; Start 09/09/16 at 00:30 Zolpidem Tartrate (Ambien) 5 mg HS PRN PO INSOMNIA; Start 09/09/16 at 00:15 Acetaminophen/ Hydrocodone Bitart ([place] (5/325)) 1 tab Q4H PRN PO pain Last administered on 09/11/16 09:19; Admin Dose 1 TAB; Start 09/09/16 at 00:30 Cholecalciferol 2000 unit 2,000 unit DAILY PO Last administered on 09/11/16 09: 21; Admin Dose 2,000 UNIT; Start 09/11/16 at 09:00 Ferric Sodium Gluconate Complex/ Sodium Chloride (Ferrlecit/NS) 110 ml @ 100 mls/hr Q24H IVPB Last administered on 09/11/16 16:30; Admin Dose 100 MLS/HR; Start 09/10/16 at 15:30; Stop 09/12/16 at 16:35 Lidocaine (Lidoderm) 1 patch Q24H TD Last administered on 09/11/16 17:37; Admin Dose 1 PATCH; Start 09/10/16 at 18:00 Losartan Potassium (Cozaar) 50 mg DAILY PO ; Start 09/12/16 at 09:00 Amlodipine Besylate (Norvasc) 5 mg DAILY PO Last administered on 09/11/16 11:48 ; Admin Dose 5 MG; Start 09/11/16 at 11:00 Calcium/Vitamin D (Oyster Shell/ Vit-D (500/200)) 1 tab BID PO Last administered on 09/11/16 20:08; Admin Dose 1 TAB; Start 09/11/16 at 13:00 HEIDY ORTIZ MD Sep 11, 2016 23:06
[2016-09-12] VITALS (11 sets, daily range): BP systolic 104–150; BP diastolic 56–69; PULSE 78–90; RESP 16–19
[2016-09-12] MEDS: PANTOPRAZOLE 40 MG INJ IV SCH (05:15)
[2016-09-12] MEDS: INSULIN ASPART [NOVOLOG] 3 ML PEN SC SCH ×4 (07:55→21:00)
[2016-09-12] MEDS: CHOLECALCIFEROL 2,000 UNIT CAP PO SCH (08:16)
[2016-09-12] MEDS: DOCUSATE SODIUM 100 MG CAP PO SCH ×2 (08:16→21:04)
[2016-09-12] MEDS: HYDROCODONE/APAP (5/325) TAB PO PRN (08:17)
[2016-09-12] MEDS: BACLOFEN 10 MG TAB PO SCH (08:17)
[2016-09-12] MEDS: AMLODIPINE 5 MG TAB PO SCH (08:17)
[2016-09-12] MEDS: CALCIUM/VITAMIN D (500/200) TAB PO SCH ×2 (08:17→21:04)
[2016-09-12] MEDS: POTASSIUM CHLORIDE (SR) 10 MEQ TAB PO SCH (08:17)
[2016-09-12] MEDS: LOSARTAN 50 MG TAB PO SCH (08:20)
[2016-09-12] MEDS: ENOXAPARIN 30 MG/0.3 ML SYG SC SCH (08:27)
[2016-09-12] MEDS ORDERED: AMLODIPINE 5 MG TAB PO ONE (10:00)
--- NOTE | 2016-09-12 10:10 | CONS ---
Date/Time of Note Date/Time of Note DATE: 09/12/16 TIME: 10:09 Assessment/Plan Assessment/Plan Chief Complaint/Hosp Course ASSESSMENT: An 81-year-old female who presents today with lethargy and a near- syncopal episode Right-sided pleural-based lung mass, CT biopsy showing it to be adenocarcinoma of the lung. SEVERE WT LOSS WITH DECREASED APPETITE PRELIMINARY DIAGNOSIS: Right lung mass, CT-guided core needle biopsies with touch imprints: Adenocarcinoma, focally mucinous, well-differentiated , acinar pattern. AWAIT FINAL PATH PET/CT OUTPT OK TO DC WITH OUTPT F-UP D/W SON ANEMIA ACD RENAL CYST Near syncope with associated hypotension and bradycardia. Rule out acute coronary syndrome. High blood pressure, good control. Dyslipidemia, stable. Diabetes type 2 with fairly good control. Acute renal failure, rule out chronic kidney disease. ASPIRIN ALLERGY. Low TSH, rule out hypothyroidism. Problems: Consultation Date/Type/Reason Admit Date/Time September 08, 2016 at 19:35 Initial Consult Date 09/08/16 Type of Consultation: [facility] Referring Provider: NILDA SHINE 24 HR Interval Summary Free Text/Dictation CT biopsy showing it to be adenocarcinoma of the lung. D/W SON Exam/Review of Systems Vital Signs Vitals Vital Signs Date Time Temp Pulse Resp B/P Pulse Ox O2 Delivery O2 Flow Rate FiO2 09/12/16 08:34 78 09/12/16 07:19 98.6 18 150/67 94 09/10/16 15:03 Room Air 09/10/16 13:30 2.0 Intake and Output 09/11/16 09/11/16 09/12/16 15:00 23:00 07:00 Intake Total 400 ml 250 ml Balance 400 ml 250 ml Exam HEENT examination; supple neck, no JVD. No lymphadenopathy. Midline trachea. No thyromegaly. Patient has fair dentition. Nipples are midsize and reactive to light. Chest examination; diminished but clear vessel bilaterally. S1-S2 audible, no murmurs. Regular rhythm. Abdomen examination; soft, nontender. No organomegaly. Bowel sounds audible. Extremity examination; no edema. 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 Results Result Diagram: 09/11/16 0548 09/11/16 0548 Results 24 hrs Laboratory Tests Test 09/11/16 11:36 09/11/16 17:36 09/11/16 20:10 09/12/16 08:03 Bedside Glucose 132 108 144 131 Medications Medications Current Medications Enoxaparin Sodium (Lovenox) 30 mg DAILY SC Last administered on 09/12/16 08:27 ; Admin Dose 30 MG; Start 09/09/16 at 09:00; Status Future hold Pantoprazole (Protonix Iv) 40 mg DAILY@06 IV Last administered on 09/12/16 05: 15; Admin Dose 40 MG; Start 09/09/16 at 06:00 Docusate Sodium (Colace) 100 mg BID PO Last administered on 09/12/16 08:16; Admin Dose 100 MG; Start 09/08/16 at 21:00 Acetaminophen (Tylenol Tab) 650 mg Q4H PRN PO PAIN AND OR ELEVATED TEMP; Start 09/08/16 at 21:00 Morphine Sulfate (morphine) 1 mg Q4H PRN IV pain Last administered on 09/10/16 20:57; Admin Dose 1 MG; Start 09/08/16 at 21:00 Miscellaneous Information 1 ea NOTE XX ; Start 09/08/16 at 21:30 Glucose (Glutose) 15 gm Q15M PRN PO DECREASED GLUCOSE; Start 09/08/16 at 21:30 Glucose (Glutose) 22.5 gm Q15M PRN PO DECREASED GLUCOSE; Start 09/08/16 at 21: 30 Dextrose (D50w Syringe) 25 ml Q15M PRN IV DECREASED GLUCOSE; Start 09/08/16 at 21:30 Dextrose (D50w Syringe) 50 ml Q15M PRN IV DECREASED GLUCOSE; Start 09/08/16 at 21:30 Glucagon (Glucagen) 1 mg Q15M PRN IM DECREASED GLUCOSE; Start 09/08/16 at 21:30 Glucose (Glutose) 15 gm Q15M PRN BUCCAL DECREASED GLUCOSE; Start 09/08/16 at 21 :30 Hydralazine HCl (Apresoline) 10 mg Q6H PRN IV ELEVATED BLOOD PRESSURE Last administered on 09/10/16 20:49; Admin Dose 10 MG; Start 09/08/16 at 22:30 Baclofen (Lioresal) 10 mg DAILY PO Last administered on 09/12/16 08:17; Admin Dose 10 MG; Start 09/09/16 at 09:00 Meclizine HCl (Antivert) 25 mg DAILY PRN PO DIZZINESS; Start 09/09/16 at 00:00 Potassium Chloride (Klor-Con 10) 8 meq DAILY PO Last administered on 09/12/16 08:17; Admin Dose 8 MEQ; Start 09/09/16 at 09:00 Hydroxyzine HCl (Atarax) 20 mg QHS PO Last administered on 09/11/16 20:08; Admin Dose 20 MG; Start 09/09/16 at 00:30 Zolpidem Tartrate (Ambien) 5 mg HS PRN PO INSOMNIA; Start 09/09/16 at 00:15 Acetaminophen/ Hydrocodone Bitart ([place] (5/325)) 1 tab Q4H PRN PO pain Last administered on 09/12/16 08:17; Admin Dose 1 TAB; Start 09/09/16 at 00:30 Cholecalciferol 2000 unit 2,000 unit DAILY PO Last administered on 09/12/16 08: 16; Admin Dose 2,000 UNIT; Start 09/11/16 at 09:00 Ferric Sodium Gluconate Complex/ Sodium Chloride (Ferrlecit/NS) 110 ml @ 100 mls/hr Q24H IVPB Last administered on 09/11/16 16:30; Admin Dose 100 MLS/HR; Start 09/10/16 at 15:30; Stop 09/12/16 at 16:35 Lidocaine (Lidoderm) 1 patch Q24H TD Last administered on 09/11/16 17:37; Admin Dose 1 PATCH; Start 09/10/16 at 18:00 Losartan Potassium (Cozaar) 50 mg DAILY PO Last administered on 09/12/16 08:20 ; Admin Dose 50 MG; Start 09/12/16 at 09:00 Calcium/Vitamin D (Oyster Shell/ Vit-D (500/200)) 1 tab BID PO Last administered on 09/12/16 08:17; Admin Dose 1 TAB; Start 09/11/16 at 13:00 Amlodipine Besylate (Norvasc) 10 mg DAILY PO ; Start 09/13/16 at 09:00 [facility] [address] [place], [place] [id number] ; Lab No: [id number] P Date: 09/10/2016 PRELIMINARY REPORT SPECIMEN: Right lung mass, CT-guided core needle biopsies with touch imprints This preliminary microscopic diagnosis is based upon material currently available for examination. Final Pathological diagnosis is pending completion of one or more of the following studies: ( ) Special stains ( x ) Immunoperoxidase stains pending ( ) Slides consultation ( ) Examination of additional sections in processing ( ) Examination of previous pathology ( x ) Other: Molecular studies for lung carcinoma to follow in supplemental report MICROSCOPIC DESCRIPTION: Core needle biopsies of the right lung mass demonstrate extensively scarred pulmonary parenchyma containing isolated small and medium sized glands lined by columnar and focally stratified columnar epithelium with apical mucin. Nuclei are oval, mildly hyperchromatic and do not show significant pleomorphism. No mitotic activity is seen. The intervening stroma is edematous and mildly fibrotic. There are separate fragments of uninvolved pulmonary parenchyma. No granulomas or pneumonia is identified. Histopathologic features are those of adenocarcinoma, focally mucinous, well-differentiated with acinar pattern. PRELIMINARY DIAGNOSIS: Right lung mass, CT-guided core needle biopsies with touch imprints: -- Adenocarcinoma, focally mucinous, well-differentiated, acinar pattern. COMMENT: The preliminary diagnosis is discussed with Dr. Valeriy Purdy on 2016. Immunoperoxidase stains are pending to further characterize the tumor and a final report will be issued following review of the immunohistochemical stains. In addition, molecular studies for lung carcinoma are in progress at [facility] and separate supplemental reports of those results will follow. This case has been reviewed by Yeyo Wilson M.D., who concurs with the above interpretation. DK/tm Date of Service: 09/10/16; Date Received: Dictated: 09/11/16; Transcribed: 09/11/16; Sent by Fax: 09/11/16; Reviewed: HILARY Lawson M.D. Pathologist Electronically Signed 09/11/2016 MIGUEL LAWSON M.D. 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
--- NOTE | 2016-09-12 10:31 | CONS ---
Date/Time of Note Date/Time of Note DATE: 09/12/16 TIME: 10:27 Assessment/Plan Assessment/Plan Chief Complaint/Hosp Course Right pneumothorax: secondary to biopsy. Appears unchanged HTN:better but still high at times Syncope: secondary to SBP 70s likely worsened by standing up. Sinus bradycardia in the 50s should not cause syncope. EF preserved Bradycardia: Sinus bradycardia, no heart block. On atenolol which is not ideal at her age and with renal issues RUL lung mass: s/p biopsy, adenocarcinoma Thyroid nodules: being evaluated Right fibula fracture: s/p cast DM Hypotension: resolved HL -cozaar 50mg -increase to amlodipine 10 mg -will start oxygen in the interim to help with pneumo Problems: Consultation Date/Type/Reason Admit Date/Time September 08, 2016 at 19:35 Initial Consult Date 09/09/16 Type of Consultation: Cardiology Referring Provider: NILDA SHINE 24 HR Interval Summary Free Text/Dictation Right apical pneumo noted so pt held for evaluation Exam/Review of Systems Vital Signs Vitals Vital Signs Date Time Temp Pulse Resp B/P Pulse Ox O2 Delivery O2 Flow Rate FiO2 09/12/16 08:34 78 09/12/16 07:19 98.6 18 150/67 94 09/10/16 15:03 Room Air 09/10/16 13:30 2.0 Intake and Output 09/11/16 09/11/16 09/12/16 15:00 23:00 07:00 Intake Total 400 ml 250 ml Balance 400 ml 250 ml Exam Constitutional: alert, oriented Head: atraumatic, normocephalic Neck: No jvd Respiratory: clear to auscultation, No crackles/rales Cardiovascular: regular rate and rhythm, No edema Gastrointestinal: non-tender, soft Neurological: nl mental status, nl speech Results Result Diagram: 09/11/16 0548 09/11/16 0548 Results 24 hrs Laboratory Tests Test 09/11/16 11:36 09/11/16 17:36 09/11/16 20:10 09/12/16 08:03 Bedside Glucose 132 108 144 131 Medications Medications Current Medications Enoxaparin Sodium (Lovenox) 30 mg DAILY SC Last administered on 09/12/16t 08:27 ; Admin Dose 30 MG; Start 09/09/16 at 09:00; Status Future hold Pantoprazole (Protonix Iv) 40 mg DAILY@06 IV Last administered on 09/12/16 05: 15; Admin Dose 40 MG; Start 09/09/16 at 06:00 Docusate Sodium (Colace) 100 mg BID PO Last administered on 09/12/16 08:16; Admin Dose 100 MG; Start 09/08/16 at 21:00 Acetaminophen (Tylenol Tab) 650 mg Q4H PRN PO PAIN AND OR ELEVATED TEMP; Start 09/08/16 at 21:00 Morphine Sulfate (morphine) 1 mg Q4H PRN IV pain Last administered on 09/10/16 20:57; Admin Dose 1 MG; Start 09/08/16 at 21:00 Miscellaneous Information 1 ea NOTE XX ; Start 09/08/16 at 21:30 Glucose (Glutose) 15 gm Q15M PRN PO DECREASED GLUCOSE; Start 09/08/16 at 21:30 Glucose (Glutose) 22.5 gm Q15M PRN PO DECREASED GLUCOSE; Start 09/08/16 at 21: 30 Dextrose (D50w Syringe) 25 ml Q15M PRN IV DECREASED GLUCOSE; Start 09/08/16 at 21:30 Dextrose (D50w Syringe) 50 ml Q15M PRN IV DECREASED GLUCOSE; Start 09/08/16 at 21:30 Glucagon (Glucagen) 1 mg Q15M PRN IM DECREASED GLUCOSE; Start 09/08/16 at 21:30 Glucose (Glutose) 15 gm Q15M PRN BUCCAL DECREASED GLUCOSE; Start 09/08/16 at 21 :30 Hydralazine HCl (Apresoline) 10 mg Q6H PRN IV ELEVATED BLOOD PRESSURE Last administered on 09/10/16 20:49; Admin Dose 10 MG; Start 09/08/16 at 22:30 Baclofen (Lioresal) 10 mg DAILY PO Last administered on 09/12/16 08:17; Admin Dose 10 MG; Start 09/09/16 at 09:00 Meclizine HCl (Antivert) 25 mg DAILY PRN PO DIZZINESS; Start 09/09/16 at 00:00 Potassium Chloride (Klor-Con 10) 8 meq DAILY PO Last administered on 09/12/16 08:17; Admin Dose 8 MEQ; Start 09/09/16 at 09:00 Hydroxyzine HCl (Atarax) 20 mg QHS PO Last administered on 09/11/16 20:08; Admin Dose 20 MG; Start 09/09/16 at 00:30 Zolpidem Tartrate (Ambien) 5 mg HS PRN PO INSOMNIA; Start 09/09/16 at 00:15 Acetaminophen/ Hydrocodone Bitart ([place] (5/325)) 1 tab Q4H PRN PO pain Last administered on 09/12/16 08:17; Admin Dose 1 TAB; Start 09/09/16 at 00:30 Cholecalciferol 2000 unit 2,000 unit DAILY PO Last administered on 09/12/16 08: 16; Admin Dose 2,000 UNIT; Start 09/11/16 at 09:00 Ferric Sodium Gluconate Complex/ Sodium Chloride (Ferrlecit/NS) 110 ml @ 100 mls/hr Q24H IVPB Last administered on 09/11/16 16:30; Admin Dose 100 MLS/HR; Start 09/10/16 at 15:30; Stop 09/12/16 at 16:35 Lidocaine (Lidoderm) 1 patch Q24H TD Last administered on 09/11/16 17:37; Admin Dose 1 PATCH; Start 09/10/16 at 18:00 Losartan Potassium (Cozaar) 50 mg DAILY PO Last administered on 09/12/16 08:20 ; Admin Dose 50 MG; Start 09/12/16 at 09:00 Calcium/Vitamin D (Oyster Shell/ Vit-D (500/200)) 1 tab BID PO Last administered on 09/12/16 08:17; Admin Dose 1 TAB; Start 09/11/16 at 13:00 Amlodipine Besylate (Norvasc) 10 mg DAILY PO ; Start 09/13/16 at 09:00 ERIN GUTIERREZ Sep 12, 2016 10:31
--- NOTE | 2016-09-12 11:34 | CONS ---
Date/Time of Note Date/Time of Note DATE: 09/12/16 TIME: 11:32 Assessment/Plan Assessment/Plan Chief Complaint/Hosp Course Consultation note dictated [id number]. Findings discussed with Dr. SHINE. Problems: Additional Assessment/Plan Assessment recommendations; next 1. Patient admitted with a fall resulting in right fibular fracture, with incidental discovery made of right upper lobe lung mass. CT biopsy showing it to be adenocarcinoma of the lung. 2. History of hypertension diabetes and gout. 3. Small post biopsy of vital pneumothorax. Patient can be discharged home. She will be followed by outpatient oncology. Consultation Date/Type/Reason Admit Date/Time September 08, 2016 at 19:35 Initial Consult Date 09/09/16 Type of Consultation: Pulmonary Referring Provider: NILDA SHINE 24 HR Interval Summary Free Text/Dictation Patient condition stable. Denies any chest pain, shortness of breath, cough or hemoptysis. General exam; elderly lady, awake alert currently in no distress. Exam/Review of Systems Vital Signs Vitals Vital Signs Date Time Temp Pulse Resp B/P Pulse Ox O2 Delivery O2 Flow Rate FiO2 09/12/16 11:31 97.9 82 16 104/56 95 09/10/16 15:03 Room Air 09/10/16 13:30 2.0 Intake and Output 09/11/16 09/11/16 09/12/16 15:00 23:00 07:00 Intake Total 400 ml 250 ml Balance 400 ml 250 ml Exam HEENT exam; supple neck, no JVD. No lymphadenopathy. Midline trachea. No thyromegaly. Patient has fair dentition. Pupils are small and reactive to light bilaterally. Chest exam is; clear to auscultation. S1-S2 audible, no murmurs. Regular rhythm. Abdomen examination; soft, nondistended. No organomegaly. Bowel sounds audible. Extremity examination; no peripheral edema. 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 Results Result Diagram: 09/11/16 0548 09/11/16 0548 Results 24 hrs Laboratory Tests Test 09/11/16 11:36 09/11/16 17:36 09/11/16 20:10 09/12/16 08:03 Bedside Glucose 132 108 144 131 Medications Medications Current Medications Enoxaparin Sodium (Lovenox) 30 mg DAILY SC Last administered on 09/12/16t 08:27 ; Admin Dose 30 MG; Start 09/09/16 at 09:00; Status Future hold Pantoprazole (Protonix Iv) 40 mg DAILY@06 IV Last administered on 09/12/16 05: 15; Admin Dose 40 MG; Start 09/09/16 at 06:00 Docusate Sodium (Colace) 100 mg BID PO Last administered on 09/12/16 08:16; Admin Dose 100 MG; Start 09/08/16 at 21:00 Acetaminophen (Tylenol Tab) 650 mg Q4H PRN PO PAIN AND OR ELEVATED TEMP; Start 09/08/16 at 21:00 Morphine Sulfate (morphine) 1 mg Q4H PRN IV pain Last administered on 09/10/16 20:57; Admin Dose 1 MG; Start 09/08/16 at 21:00 Miscellaneous Information 1 ea NOTE XX ; Start 09/08/16 at 21:30 Glucose (Glutose) 15 gm Q15M PRN PO DECREASED GLUCOSE; Start 09/08/16 at 21:30 Glucose (Glutose) 22.5 gm Q15M PRN PO DECREASED GLUCOSE; Start 09/08/16 at 21: 30 Dextrose (D50w Syringe) 25 ml Q15M PRN IV DECREASED GLUCOSE; Start 09/08/16 at 21:30 Dextrose (D50w Syringe) 50 ml Q15M PRN IV DECREASED GLUCOSE; Start 09/08/16 at 21:30 Glucagon (Glucagen) 1 mg Q15M PRN IM DECREASED GLUCOSE; Start 09/08/16 at 21:30 Glucose (Glutose) 15 gm Q15M PRN BUCCAL DECREASED GLUCOSE; Start 09/08/16 at 21 :30 Hydralazine HCl (Apresoline) 10 mg Q6H PRN IV ELEVATED BLOOD PRESSURE Last administered on 09/10/16 20:49; Admin Dose 10 MG; Start 09/08/16 at 22:30 Baclofen (Lioresal) 10 mg DAILY PO Last administered on 09/12/16 08:17; Admin Dose 10 MG; Start 09/09/16 at 09:00 Meclizine HCl (Antivert) 25 mg DAILY PRN PO DIZZINESS; Start 09/09/16 at 00:00 Potassium Chloride (Klor-Con 10) 8 meq DAILY PO Last administered on 09/12/16 08:17; Admin Dose 8 MEQ; Start 09/09/16 at 09:00 Hydroxyzine HCl (Atarax) 20 mg QHS PO Last administered on 09/11/16 20:08; Admin Dose 20 MG; Start 09/09/16 at 00:30 Zolpidem Tartrate (Ambien) 5 mg HS PRN PO INSOMNIA; Start 09/09/16 at 00:15 Acetaminophen/ Hydrocodone Bitart ([place] (5/325)) 1 tab Q4H PRN PO pain Last administered on 09/12/16 08:17; Admin Dose 1 TAB; Start 09/09/16 at 00:30 Cholecalciferol 2000 unit 2,000 unit DAILY PO Last administered on 09/12/16 08: 16; Admin Dose 2,000 UNIT; Start 09/11/16 at 09:00 Ferric Sodium Gluconate Complex/ Sodium Chloride (Ferrlecit/NS) 110 ml @ 100 mls/hr Q24H IVPB Last administered on 09/11/16 16:30; Admin Dose 100 MLS/HR; Start 09/10/16 at 15:30; Stop 09/12/16 at 16:35 Lidocaine (Lidoderm) 1 patch Q24H TD Last administered on 09/11/16 17:37; Admin Dose 1 PATCH; Start 09/10/16 at 18:00 Losartan Potassium (Cozaar) 50 mg DAILY PO Last administered on 09/12/16 08:20 ; Admin Dose 50 MG; Start 09/12/16 at 09:00 Calcium/Vitamin D (Oyster Shell/ Vit-D (500/200)) 1 tab BID PO Last administered on 09/12/16 08:17; Admin Dose 1 TAB; Start 09/11/16 at 13:00 Amlodipine Besylate (Norvasc) 10 mg DAILY PO ; Start 09/13/16 at 09:00 MARJORIE HALE Sep 12, 2016 11:34
[2016-09-12] MEDS ORDERED: HYDR-3498 PO (13:36)
--- NOTE | 2016-09-12 16:04 | DS ---
Date/Time of Note Date/Time of Note DATE: 09/12/16 TIME: 15:55 Discharge Summary Admission/Discharge Info Admit Date/Time September 08, 2016 at 19:35 Discharge Date/Time Final Diagnosis 81-year-old female managed for the followin. Near syncope with associated hypotension and bradycardia: resolved * Patient has been off beta-dalia therapy with improvement in blood pressure and heart rate. 2. Right-sided pleural-based lung mass / Adenocarcinoma of the lung * CT of the abdomen and pelvis and brain showed no other masses * Patient is status post CT-guided biopsy September 10, 2016, and I was just notified that preliminary pathology results are consistent with adenocarcinoma of the lung. 3. Multiple thyroid masses 4. Incidental renal cyst 5. History of skin cancer in the past, status post radiation many years ago. Patient was told she was cancer free. 6. High blood pressure: controlled 7. Dyslipidemia: 8. Diabetes type 2 with fairly good control. 9. Acute renal failure, rule out chronic kidney disease: improving 10. ASPIRIN ALLERGY. 11. Acute minimally angulated proximal fibular shaft fracture causing right lower extremity pain * Status post foot brace in short leg, walker, for at least 6 months. Outpatient follow-up with orthopedics. 12. Background osteopenia: on calcium 13. Rhabdomyolysis mild: Improved Hospital Course 81-year-old female with a history of diabetes, high blood pressure was presented to the ER with a near syncopal episode. She was found to have hypotension and bradycardia and she was initially admitted for further evaluation and ACS rule out. However preliminary evaluation showed that she had a new right lung mass. She did have a history of skin cancer in the past for which she had received radiation but she had been told she was cancer free. Also when she had a near syncopal episode, it seemed that in laying her flat, the family had laid her legs in an abnormal position. She was complaining of right lower extremity pain and x-ray findings were consistent with a fibula fracture. She was seen by orthopedic surgery for this and she was given a boot to use for the next 6 weeks. Regarding the new finding of lung mass she underwent a CT-guided biopsy which was complicated by a very small pneumothorax. This however was stable on serial chest x-rays and she has been cleared at this time for discharge by pulmonary. She is to follow-up with Dr. Koch for further management of her lung mass which pathology came back showing adenocarcinoma or she will choose her own oncologist for follow-up per her family. Her imaging studies also showed multiple thyroid masses but her thyroid profile was normal. She was seen by endocrinology who determined that she did not need any further intervention. At this time she is in stable condition she has been cleared by all specialists for discharge she is to be discharged home with her family with home health for outpatient follow-up with her primary care physician as well as oncology. Of note is that this patient was also seen by cardiology who took her off beta- dalia therapy and put her on ARB therapy instead. She was also treated with iron supplementation for mildly low and iron levels Please see medical records for further details. . Home Meds Active Scripts Hydrocodone Bit-Acetaminophen (Hydrocodone Bit-APAP) 5-325MG Tablet, 1 TAB PO Q4H Y for pain, #30 TAB Prov:RLROMAINPayton . 09/12/16 Cholecalciferol (Vitamin D3) (VITAMIN D-3) 2,000 Unit Capsule, 2000 UNIT PO DAILY for 30 Days, CAP Prov:[facility] . 09/11/16 Olmesartan Medoxomil (Benicar) 40 Mg Tablet, 40 MG PO DAILY, #30 TAB Prov:[facility]. 09/11/16 Reported Medications Fenofibrate, Micronized (Fenofibrate) 134 Mg Capsule, 134 MG PO DAILY, CAP 09/08/16 Simvastatin (Simvastatin) 20 Mg Tablet, 20 MG PO DAILY, #30 TAB 09/08/16 Triazolam* (Triazolam*) 0.125 Mg Tablet, 0.125 MG PO HS Y for INSOMNIA, TAB 09/08/16 Potassium Chloride (Klor-Con) 10 Meq Tablet.sa, 10 MEQ PO DAILY, TAB.SA 09/08/16 Febuxostat* (Uloric*) 80 Mg Tablet, 80 MG PO DAILY, TAB 09/08/16 Furosemide* (Furosemide*) 20 Mg Tablet, 20 MG PO DAILY, #60 TAB 09/08/16 Baclofen* (Baclofen*) 10 Mg Tablet, 10 MG PO DAILY, TAB 09/08/16 Meclizine Hcl* (Meclizine Hcl*) 25 Mg Tablet, 25 MG PO DAILY Y for DIZZINESS, TAB 09/08/16 Metformin Hcl* (Metformin Hcl*) 500 Mg Tablet, 500 MG PO WITH BREAKFAST, #30 TAB 09/08/16 Discontinued Reported Medications Atenolol* (Atenolol*) 50 Mg Tablet, 50 MG PO BID, #60 TAB 09/08/16 Hydroxyzine Hcl (HYDROXYZINE HCL) 10 Mg/5 Ml Syrup, 20 MG PO QHS, #480 ML 09/08/16 Potassium Chloride (Klor-Con) 10 Meq Tablet.sa, 8 MEQ PO DAILY, TAB.SA 09/08/16 Olmesartan Medoxomil (Benicar) 40 Mg Tablet, 12.5-40 MG PO DAILY, #30 TAB 09/08/16 Follow-up Plan See hospital course. . Primary Care Provider Brittany Silva Time spent on discharge: > 30 minutes Pending Labs Laboratory Tests Test 09/11/16 17:36 09/11/16 20:10 09/12/16 08:03 09/12/16 12:20 Bedside Glucose 108mg/dL (70-220) 144mg/dL (70-220) 131mg/dL (70-220) 131mg/dL (70-220) NILDA SHINE Sep 12, 2016 16:04
[2016-09-12] MEDS: SOD FERRIC GLUC COMPLX 125 MG in SOD CHLORIDE 0.9% 100 ML IVPB SCH (16:48)
[2016-09-12] MEDS: LIDOCAINE 5% PATCH TD SCH (18:09)
--- NOTE | 2016-09-12 18:22 | RADRPT ---
PROCEDURE: XR Chest. CLINICAL INDICATION: Pneumothorax follow up TECHNIQUE: Anterior chest x-ray. COMPARISON: 09/11/2016 FINDINGS: 4.5 cm right mid lung zone lung mass is unchanged from previous exam. Consolidation in the right lung apex due to pneumothorax is unchanged from previous exam. The left lung is clear. No pleural effusion identified. A small pneumothorax lateral to the mass is unchanged from previous exam. Small pneumothorax in the right lung apex unchanged from previous exam. The cardiomediastinal silhouette is unremarkable. The soft tissues are normal. Osseous structures are unremarkable. IMPRESSION: 1. Small right pneumothorax, unchanged. 2. 4 cm right upper lobe lung mass, unchanged. 3. Consolidation right lung apex, likely atelectasis due to pneumothorax is unchanged from previous exam. RPTAT: QQ .Porter Chakraborty MD, Date Time Electronically viewed and signed by .Porter Chakraborty MD, on 09/12/2016 18:21 .M/
[2016-09-12] MEDS: hydrOXYzine HCL 10 MG TAB PO SCH (21:04)
[2016-09-13 00:05] VITALS: PULSE 80
[2016-09-13 00:11] VITALS: BP 140/67; RESP 18
[2016-09-13 04:05] VITALS: PULSE 85
[2016-09-13 04:08] VITALS: BP 145/70; RESP 19
[2016-09-13] MEDS: PANTOPRAZOLE 40 MG INJ IV SCH (06:12)
[2016-09-13] MEDS: INSULIN ASPART [NOVOLOG] 3 ML PEN SC SCH (07:55)
[2016-09-13 08:02] VITALS: BP 149/71; RESP 18
[2016-09-13 08:08] VITALS: PULSE 79
[2016-09-13] MEDS: ENOXAPARIN 30 MG/0.3 ML SYG SC SCH (09:00)
[2016-09-13] MEDS ORDERED: AMLODIPINE 5 MG TAB PO SCH (09:00)
[2016-09-13] MEDS ORDERED: LEVO750T25 PO (09:19)
[2016-09-13] MEDS: LOSARTAN 50 MG TAB PO SCH (09:43)
[2016-09-13] MEDS: BACLOFEN 10 MG TAB PO SCH (09:43)
[2016-09-13] MEDS: CHOLECALCIFEROL 2,000 UNIT CAP PO SCH (09:43)
[2016-09-13] MEDS: DOCUSATE SODIUM 100 MG CAP PO SCH (09:43)
[2016-09-13] MEDS: POTASSIUM CHLORIDE (SR) 10 MEQ TAB PO SCH (09:44)
[2016-09-13] MEDS: CALCIUM/VITAMIN D (500/200) TAB PO SCH (09:44)
--- NOTE | 2016-09-13 10:53 | CONS ---
Date/Time of Note Date/Time of Note DATE: 09/13/16 TIME: 10:52 Assessment/Plan Assessment/Plan Chief Complaint/Hosp Course Right pneumothorax: secondary to biopsy. Unchanged by CXR HTN:overall reasonable Syncope: secondary to SBP 70s likely worsened by standing up. Sinus bradycardia in the 50s should not cause syncope. EF preserved Bradycardia: Sinus bradycardia, no heart block. On atenolol which is not ideal at her age and with renal issues RUL lung mass: s/p biopsy, adenocarcinoma Thyroid nodules: being evaluated Right fibula fracture: s/p cast DM Hypotension: resolved HL -cozaar 50mg -amlodipine 10 mg -ok for d/c with outpt f/u Problems: Consultation Date/Type/Reason Admit Date/Time September 08, 2016 at 19:35 Initial Consult Date 09/09/16 Type of Consultation: Cardiology Referring Provider: NILDA SHINE 24 HR Interval Summary Free Text/Dictation No o/n events. Family could not take her home yesterday so had to stay. Now being discharged. Exam/Review of Systems Vital Signs Vitals Vital Signs Date Time Temp Pulse Resp B/P Pulse Ox O2 Delivery O2 Flow Rate FiO2 09/13/16 08:08 79 09/13/16 08:02 98.0 18 149/71 98 09/10/16 15:03 Room Air 09/10/16 13:30 2.0 Intake and Output 09/12/16 09/12/16 09/13/16 15:00 23:00 07:00 Intake Total 800 ml 400 ml Balance 800 ml 400 ml Exam Constitutional: alert, oriented Psych: no complaints Head: atraumatic, normocephalic Neck: No jvd Respiratory: clear to auscultation Cardiovascular: regular rate and rhythm, No edema Gastrointestinal: non-tender, soft Neurological: nl mental status, nl speech Results Result Diagram: 09/11/16 0548 09/11/16 0548 Results 24 hrs Laboratory Tests Test 09/12/16 12:20 09/12/16 17:29 09/12/16 21:03 09/13/16 09:40 Bedside Glucose 131 103 117 119 Medications Medications Current Medications Enoxaparin Sodium (Lovenox) 30 mg DAILY SC Last administered on 09/12/16t 08:27 ; Admin Dose 30 MG; Start 09/09/16 at 09:00; Status Future hold Pantoprazole (Protonix Iv) 40 mg DAILY@06 IV Last administered on 09/13/16 06: 12; Admin Dose 40 MG; Start 09/09/16 at 06:00 Docusate Sodium (Colace) 100 mg BID PO Last administered on 09/13/16 09:43; Admin Dose 100 MG; Start 09/08/16 at 21:00 Acetaminophen (Tylenol Tab) 650 mg Q4H PRN PO PAIN AND OR ELEVATED TEMP; Start 09/08/16 at 21:00 Morphine Sulfate (morphine) 1 mg Q4H PRN IV pain Last administered on 09/10/16 20:57; Admin Dose 1 MG; Start 09/08/16 at 21:00 Miscellaneous Information 1 ea NOTE XX ; Start 09/08/16 at 21:30 Glucose (Glutose) 15 gm Q15M PRN PO DECREASED GLUCOSE; Start 09/08/16 at 21:30 Glucose (Glutose) 22.5 gm Q15M PRN PO DECREASED GLUCOSE; Start 09/08/16 at 21: 30 Dextrose (D50w Syringe) 25 ml Q15M PRN IV DECREASED GLUCOSE; Start 09/08/16 at 21:30 Dextrose (D50w Syringe) 50 ml Q15M PRN IV DECREASED GLUCOSE; Start 09/08/16 at 21:30 Glucagon (Glucagen) 1 mg Q15M PRN IM DECREASED GLUCOSE; Start 09/08/16 at 21:30 Glucose (Glutose) 15 gm Q15M PRN BUCCAL DECREASED GLUCOSE; Start 09/08/16 at 21 :30 Hydralazine HCl (Apresoline) 10 mg Q6H PRN IV ELEVATED BLOOD PRESSURE Last administered on 09/10/16 20:49; Admin Dose 10 MG; Start 09/08/16 at 22:30 Baclofen (Lioresal) 10 mg DAILY PO Last administered on 09/13/16 09:43; Admin Dose 10 MG; Start 09/09/16 at 09:00 Meclizine HCl (Antivert) 25 mg DAILY PRN PO DIZZINESS; Start 09/09/16 at 00:00 Potassium Chloride (Klor-Con 10) 8 meq DAILY PO Last administered on 09/13/16 09:44; Admin Dose 8 MEQ; Start 5/31/17 at 09:00 Hydroxyzine HCl (Atarax) 20 mg QHS PO Last administered on 09/12/16 21:04; Admin Dose 20 MG; Start 09/09/16 at 00:30 Zolpidem Tartrate (Ambien) 5 mg HS PRN PO INSOMNIA; Start 09/09/16 at 00:15 Acetaminophen/ Hydrocodone Bitart ([place] (5/325)) 1 tab Q4H PRN PO pain Last administered on 09/12/16 08:17; Admin Dose 1 TAB; Start 09/09/16 at 00:30 Cholecalciferol (Vitamin D) 2,000 unit DAILY PO Last administered on 09/13/16 09:43; Admin Dose 2,000 UNIT; Start 09/11/16 at 09:00 Lidocaine (Lidoderm) 1 patch Q24H TD Last administered on 09/12/16 18:09; Admin Dose 1 PATCH; Start 09/10/16 at 18:00 Losartan Potassium (Cozaar) 50 mg DAILY PO Last administered on 09/13/16 09:43 ; Admin Dose 50 MG; Start 09/12/16 at 09:00 Calcium/Vitamin D (Oyster Shell/ Vit-D (500/200)) 1 tab BID PO Last administered on 09/13/16 09:44; Admin Dose 1 TAB; Start 09/11/16 at 13:00 Amlodipine Besylate (Norvasc) 10 mg DAILY PO Last administered on 09/13/16 09: 43; Admin Dose 10 MG; Start 09/13/16 at 09:00 ERIN GUTIERREZ Sep 13, 2016 10:53
--- NOTE | 2016-09-13 12:20 | DS ---
Date/Time of Note Date/Time of Note DATE: 09/13/16 TIME: 12:16 Discharge Summary Admission/Discharge Info Admit Date/Time September 08, 2016 at 19:35 Discharge Date/Time Sep 13, 2016 at 10:55 Final Diagnosis 81-year-old female managed for the followin. Near syncope with associated hypotension and bradycardia: resolved * Patient has been off beta-dalia therapy with improvement in blood pressure and heart rate. 2. Right-sided pleural-based lung mass / Adenocarcinoma of the lung * CT of the abdomen and pelvis and brain showed no other masses * Patient is status post CT-guided biopsy September 10, 2016, and I was just notified that preliminary pathology results are consistent with adenocarcinoma of the lung. 3. Multiple thyroid masses 4. Incidental renal cyst 5. History of skin cancer in the past, status post radiation many years ago. Patient was told she was cancer free. 6. High blood pressure: controlled 7. Dyslipidemia: 8. Diabetes type 2 with fairly good control. 9. Acute renal failure, rule out chronic kidney disease: improving 10. ASPIRIN ALLERGY. 11. Acute minimally angulated proximal fibular shaft fracture causing right lower extremity pain * Status post foot brace in short leg, walker, for at least 6 months. Outpatient follow-up with orthopedics. 12. Background osteopenia: on calcium 13. Rhabdomyolysis mild: Improved Patient Condition: Stable Hospital Course See previous discharge summary dictated by me September 12, 2016 Patient discharge was held yesterday for social reasons. Below at the updates. Right pneumothorax: secondary to biopsy. Unchanged by CXR HTN:overall reasonable Syncope: secondary to SBP 70s likely worsened by standing up. No further episodes, patient has been up and and ambulant. EF preserved Bradycardia: Sinus bradycardia, no heart block. Was secondary to beta-dalia therapy and has currently resolved off beta blockers RUL lung mass: s/p biopsy, adenocarcinoma, planned for outpatient follow-up Thyroid nodules: These have been evaluated by endocrinology without any further intervention Right fibula fracture: s/p cast DM patient having excellent control in-house: Hypotension: resolved HL Patient remains stable for discharge. . Home Meds Active Scripts Levofloxacin* (Levaquin*) 750 Mg Tablet, 750 MG PO DAILY for 5 Days, TAB Prov:NILDA SHINE 09/13/16 Hydrocodone Bit-Acetaminophen (Hydrocodone Bit-APAP) 5-325MG Tablet, 1 TAB PO Q4H Y for pain, #30 TAB Prov:NILDA SHINE. 09/12/16 Cholecalciferol (Vitamin D3) (VITAMIN D-3) 2,000 Unit Capsule, 2000 UNIT PO DAILY for 30 Days, CAP Prov:NILDA SHINE. 09/11/16 Olmesartan Medoxomil (Benicar) 40 Mg Tablet, 40 MG PO DAILY, #30 TAB Prov:NILDA SHINE. 09/11/16 Reported Medications Fenofibrate, Micronized (Fenofibrate) 134 Mg Capsule, 134 MG PO DAILY, CAP 09/08/16 Simvastatin (Simvastatin) 20 Mg Tablet, 20 MG PO DAILY, #30 TAB 09/08/16 Triazolam* (Triazolam*) 0.125 Mg Tablet, 0.125 MG PO HS Y for INSOMNIA, TAB 09/08/16 Potassium Chloride (Klor-Con) 10 Meq Tablet.sa, 10 MEQ PO DAILY, TAB.SA 09/08/16 Febuxostat* (Uloric*) 80 Mg Tablet, 80 MG PO DAILY, TAB 09/08/16 Furosemide* (Furosemide*) 20 Mg Tablet, 20 MG PO DAILY, #60 TAB 09/08/16 Baclofen* (Baclofen*) 10 Mg Tablet, 10 MG PO DAILY, TAB 09/08/16 Meclizine Hcl* (Meclizine Hcl*) 25 Mg Tablet, 25 MG PO DAILY Y for DIZZINESS, TAB 09/08/16 Metformin Hcl* (Metformin Hcl*) 500 Mg Tablet, 500 MG PO WITH BREAKFAST, #30 TAB 09/08/16 Discontinued Reported Medications Atenolol* (Atenolol*) 50 Mg Tablet, 50 MG PO BID, #60 TAB 09/08/16 Hydroxyzine Hcl (HYDROXYZINE HCL) 10 Mg/5 Ml Syrup, 20 MG PO QHS, #480 ML 09/08/16 Potassium Chloride (Klor-Con) 10 Meq Tablet.sa, 8 MEQ PO DAILY, TAB.SA 09/08/16 Olmesartan Medoxomil (Benicar) 40 Mg Tablet, 12.5-40 MG PO DAILY, #30 TAB 09/08/16 Primary Care Provider Brittany Silva Time spent on discharge: > 30 minutes Pending Labs Laboratory Tests Test 09/12/16 12:20 09/12/16 17:29 09/12/16 21:03 09/13/16 09:40 Bedside Glucose 131mg/dL (70-220) 103mg/dL (70-220) 117mg/dL (70-220) 119mg/dL (70-220) NILDA SHINE Sep 13, 2016 12:19
--- NOTE | 2016-09-13 23:43 | CONS ---
Date/Time of Note Date/Time of Note DATE: 09/13/16 TIME: 11:42 vk le Assessment/Plan Assessment/Plan Chief Complaint/Hosp Course ASSESSMENT: An 81-year-old female who presents today with lethargy and a near- syncopal episode Right-sided pleural-based lung mass, multiple thyroid masses, in the setting of a history of skin cancer in the past, status post radiation, concerning for metastatic disease versus infection with incidental findings. SEVERE WT LOSS WITH DECREASED APPETITE R/O UNDERLYING NEOPLASIA POST CT-QUIDED BX LUNG MASS PRELIMINARY DIAGNOSIS: Right lung mass, CT-guided core needle biopsies with touch imprints: Adenocarcinoma, focally mucinous, well-differentiated , acinar pattern. AWAIT FINAL PATH PET/CT OUTPT OK TO DC WITH OUTPT F-UP D/W SON ANEMIA ACD RENAL CYST Near syncope with associated hypotension and bradycardia. Rule out acute coronary syndrome. High blood pressure, good control. Dyslipidemia, stable. Diabetes type 2 with fairly good control. Acute renal failure, rule out chronic kidney disease. ASPIRIN ALLERGY. Low TSH, rule out hypothyroidism. Problems: Consultation Date/Type/Reason Admit Date/Time September 08, 2016 at 19:35 Initial Consult Date 09/08/16 [facility] Referring Provider: NILDA SHINE 24 HR Interval Summary Free Text/Dictation ALL NOTED D/W SON Exam/Review of Systems Vital Signs Vitals Vital Signs Date Time Temp Pulse Resp B/P Pulse Ox O2 Delivery O2 Flow Rate FiO2 09/13/16 08:08 79 09/13/16 08:02 98.0 18 149/71 98 09/10/16 15:03 Room Air 09/10/16 13:30 2.0 Intake and Output 09/12/16 09/12/16 09/13/16 15:00 23:00 07:00 Intake Total 800 ml 400 ml Balance 800 ml 400 ml Exam HEENT examination; supple neck, no JVD. No lymphadenopathy. Midline trachea. No thyromegaly. Patient has fair dentition. Nipples are midsize and reactive to light. Chest examination; diminished but clear vessel bilaterally. S1-S2 audible, no murmurs. Regular rhythm. Abdomen examination; soft, nontender. No organomegaly. Bowel sounds audible. Extremity examination; no edema. TALENT DEVELOPMENT DIRECTOR examination; no focal deficit. Results Result Diagram: 09/11/16 0548 09/11/16 0548 Results 24 hrs Laboratory Tests Test 09/13/16 09:40 Bedside Glucose 119 HEIDY ORTIZ MD Sep 13, 2016 23:43
== END 2016-09-13 10:55 | disposition home health service (06) | DRG 315 ==
LOC: E/R 14:53 → TEL 19:35
PROVIDERS: ADMIT Family Medicine; ATTEND Family Medicine
PROC: 0BBK3ZX Excision of Right Lung, Percutaneous Approach, Diagnostic (ICD-10-PCS; principal; 2016-09-10)
DX: I95.9 Hypotension, unspecified (principal); N17.9 Acute kidney failure, unspecified; M62.82 Rhabdomyolysis; E53.8 Deficiency of other specified B group vitamins; N28.1 Cyst of kidney, acquired; C34.91 Malignant neoplasm of unspecified part of right bronchus or lung; E11.22 Type 2 diabetes mellitus with diabetic chronic kidney disease; J95.811 Postprocedural pneumothorax; E78.5 Hyperlipidemia, unspecified; Z85.828 Personal history of other malignant neoplasm of skin; E07.9 Disorder of thyroid, unspecified; Z92.3 Personal history of irradiation; Z88.8 Allergy status to other drugs, medicaments and biological substances; M85.80 Other specified disorders of bone density and structure, unspecified site; E66.9 Obesity, unspecified; Z68.35 Body mass index [BMI] 35.0-35.9, adult; I10 Essential (primary) hypertension; R63.4 Abnormal weight loss; S82.861A Displaced Maisonneuve's fracture of right leg, initial encounter for closed fracture; D50.9 Iron deficiency anemia, unspecified; I12.9 Hypertensive chronic kidney disease with stage 1 through stage 4 chronic kidney disease, or unspecified chronic kidney disease; N18.9 Chronic kidney disease, unspecified; R00.1 Bradycardia, unspecified; W01.0XXA Fall on same level from slipping, tripping and stumbling without subsequent striking against object, initial encounter; Y84.8 Other medical procedures as the cause of abnormal reaction of the patient, or of later complication, without mention of misadventure at the time of the procedure; Y92.239 Unspecified place in hospital as the place of occurrence of the external cause; M10.9 Gout, unspecified
CPT/HCPCS: 36415; 70450; 71010; 71250; 73562; 73590; 74176; 76536; 76775; 77012; 80048; 80053; 80061; 81003; 82306; 82378; 82550; 82553; 82607; 82728; 82746; 82962; 83036; 83540; 83615; 83735; 84100; 84436; 84439; 84443; 84479; 84481; 84484; 84560; 85025; 85045; 85610; 85651; 85730; 86635; 86698; 88104; 88307; 88313; 93005; 93306; 93880; 93970; 96374; 97162; C9113; J0360; J1650; J1815; J2060; J2250; J2270; J2916; J3010; J3420; J3475; J7030; J7040; L4360-RT